=== PATIENT | male | born 1995 | race Hispanic/Latino ===

== ENCOUNTER 2024-11-22 21:59 | Emergency (ER) | payer BC ==
[~2024-11-22] VITALS: Ht 177.8 cm; Wt 185.1 kg
[~2024-11-22 21:59] MED LIST: CETI10TA87 PO; FLUT15.845 NASAL
--- NOTE | 2024-11-22 23:55 | NUR ---
ASSUMED PT CARE
[2024-11-23] MEDS: ketOROlac 60 MG VIAL (30MG/ML) IM ONE (00:20)
[2024-11-23 00:39] LABS: BASOPHILS # (AUTO) 0.04 K/uL (0.00-0.20); BASOPHILS % (AUTO) 0.3 % (0.0-5.0); EOSINOPHILS # (AUTO) 0.26 K/uL (0.00-0.70); EOSINOPHILS % (AUTO) 2.1 % (0.0-8.0); HEMATOCRIT 40.3 % (42-54); IMMATURE GRANULOCYTE ABSOLUTE 0.06 K/uL (0-1); LYMPHOCYTES # (AUTO) 2.2 K/uL (1.0-4.8); MEAN CORPUSCULAR VOLUME 87.8 fL (79-99); MONOCYTES # (AUTO) 0.8 K/uL (0.1-1.0); MONOCYTES % (AUTO) 6.5 % (3.0-13.0); NEUTROPHILS # (AUTO) 8.9 K/uL (1.8-7.7); NEUTROPHILS % (AUTO) 72.6 % (40.0-77.0); PLATELET COUNT (AUTO) 194 K/uL (130-400); RED BLOOD CELL COUNT(AUTO) 4.59 MIL/uL (4.50-6.20); RED CELL DISTRIBUTION WIDTH 12.5 % (11.0-15.5); WHITE BLOOD COUNT (AUTO) 12.3 K/uL (4.8-10.8)
[2024-11-23 00:49] LABS: CREATININE 0.8 mg/dL (0.5-1.3); POTASSIUM 3.7 mmol/L (3.5-5.1)
--- NOTE | 2024-11-23 01:30 | HMCIMG ---
CT ABDOMEN/PELVIS W/O CONTRAST HISTORY: Rectal pain COMPARISON: None TECHNIQUE: Multiple sequential axial images of the abdomen and pelvis were obtained from the dome of the diaphragm through symphysis pubis. Patient was not given contrast through intravenous route. Oral contrast was not given. FINDINGS: No pleural effusion is seen bilaterally. There is no evidence of parenchymal disease or pulmonary nodule of the visualized lower lungs. Degenerative changes of the thoracolumbar spine are present. The heart is not enlarged. Liver measured 23 cm. Fatty changes of the liver are noted. Gallbladder is contracted. Spleen measures 15 cm. A small hiatal hernia is seen. The liver, spleen, adrenal glands and pancreas are unremarkable. There is no evidence of hydronephrosis bilaterally. No evidence of renal stone is seen. Fecal material is seen in the colon. There are normal size retroperitoneal and mesenteric lymph nodes. No ascites is seen. No CT evidence of acute appendicitis is seen. Clinical correlation is recommended. Pelvic sidewalls are symmetric bilaterally. Bladder is moderately distended. IMPRESSION: 1. No acute findings. CT was performed with one or more following dose reduction techniques: automated exposure control, adjustment of the mA and kv according to patient's size, or use of a iterative reconstruction technique.
[2024-11-23 01:53] LABS: APPEARANCE,URINE TURBID (CLEAR); BILIRUBIN,URINE NEGATIVE (NEGATIVE); COLOR,URINE LIGHT-ORANGE (YELLOW); GLUCOSE, URINE (UA) NEGATIVE (NEGATIVE); KETONES,URINE NEGATIVE (NEGATIVE); LEUKOCYTE ESTERASE ,URINE NEGATIVE Leu/uL (NEGATIVE); NITRATE,URINE NEGATIVE (NEGATIVE); OCCULT BLOOD,URINE NEGATIVE (NEGATIVE); PROTEIN,URINE 30 mg/dL (NEGATIVE)
[2024-11-23 01:54] LABS: ADD UA MICROSCOPIC YES
[2024-11-23 02:01] LABS: AMPHET/METH SCREEN,URINE NEGATIVE (NEGATIVE); BARBITURATE SCREEN, URINE NEGATIVE (NEGATIVE); BENZODIAZEPINES SCREEN,URINE NEGATIVE (NEGATIVE); CANNABINOID SCREEN,URINE NEGATIVE (NEGATIVE); COCAINE SCREEN,URINE NEGATIVE (NEGATIVE); OPIATE SCREEN,URINE NEGATIVE (NEGATIVE); PHENCYCLIDINE SCREEN,URINE NEGATIVE (NEGATIVE)
--- NOTE | 2024-11-23 02:05 | ERN ---
ED Note History of Present Illness Stated Complaint: HEMMORHOID,FISTULA Chief Complaint: Other Problems Time Seen by MD: 22:15 Time Seen by Midlevel: 22:15 Dictation: Patient is a 29-year-old male with history of gastritis, seasonal allergies who presents to the emergency department with complaints of rectal pain onset a week ago. Patient reports he has pain with movement. Denies any rectal bleeding, nausea vomiting or diarrhea, generalized abdominal pain, denies any constipation. Reports last bowel movement today Allergies: Coded Allergies: No Known Drug Allergies (Unverified Allergy, Unknown, 01/08/17) Home Meds Reported Medications Cetirizine HCl (Cetirizine HCl) 10 Mg Tab.chew, 10 MG PO DAILY, TAB.CHEW 01/08/17 Fluticasone Propionate (Fluticasone Propionate) 15.8 Ml [place].susp, 50 MCG NASAL DAILY 01/08/17 Past Medical History Past Medical History: Other Additional Past Medical Hx: HX OF GASTRITIS, SEASONAL ALLERGIES Surgical History: Tonsillectomy RN Note Reviewed/Agreed w/PFSH: Yes Review of System Dictation Constitutional: Negative for fever,chills, and weight loss Eyes: Negative for injury, pain,redness, and discharge ENT: Negative for injury,pain or swelling Cardiovascular: Negative for chest pain, palpitations, and edema Respiratory: Negative for shortness of breath, cough, and wheezing, Abdomen/GI: Negative for abdominal pain, nausea, vomiting, diarrhea, and constipation Back: Negative for injury and pain : Negative for injury, bleeding and discharge positive for rectal pain MS/Extremity: Negative for injury and deformity Skin: Negative for rash, and discoloration Neuro: Negative for headache, weakness, numbness, tingling, and seizure Psych: Negative for suicide ideation, homicidal ideation, and hallucinations Initial Vital Sign VS Vital Signs Date Time Temp Pulse Resp B/P (MAP) Pulse Ox O2 Delivery O2 Flow Rate FiO2 11/22/24 22:30 99.1 84 20 185/82 95 Room Air 11/22/24 23:55 0 21 Physical Exam Dictation Vital Signs reviewed General Appearance: Alert, oriented x 3, no acute distress, well developed, nourished. Head and Face: non-traumatic. Eyes: PERRL, pink conjunctivas, eyelid no trauma, anterior chamber with arcus senilis. Ears: Pinnas intact and no signs of trauma or erythema ear canals clear and no discharge TM no erythema Nose: No discharge, no bleeding. Oropharynx: Mouth normal, tongue pink. pharynx clear,no erythema, tonsils no exudates, no abscesses noted, mucous membrane moist Neck: Supple, non-tender, no thyromegaly, no masses, no JVD, no bruits Breast:Deferred Chest:No tenderness, no crepitus, no paradoxical movement, no retractions Lungs:Clear, well-ventilated, symmetric, no rales, no wheezing, no rhonchi, no stridor, good breath sounds bilaterally Heart: Regular rate, regular rhythm, no murmur, no gallops Vascular: no peripheral edema, Abdomen: Soft, positive bowel sounds, nondistended, no guarding, nontender, no rebound, no masses no hepatomegaly, no splenomegaly, no Church's sign, no hernias. Rectal: Deferred Genital: Deferred Neurological: Normal speech, motor function intact, sensory function intact Musculoskeletal: Neck nontender, full range of motion, back nontender, full range of motion, Extremities: nontender, full range of motion Skin: Color pink, dry, no turgor, no rash, no lacerations, no abrasions, no contusions. Lymphatic: Deferred Results (Laboratory/Radiology) Laboratory/Radiology Laboratory Tests Test 11/23/24 00:13 11/23/24 01:39 White Blood Count 12.3 K/uL (4.8-10.8) H Red Blood Count 4.59 MIL/uL (4.50-6.20) Hemoglobin 13.3 g/dL (14.0-18.0) L Hematocrit 40.3 % (42-54) L Mean Corpuscular Volume 87.8 fL (79-99) Mean Corpuscular Hemoglobin 29.0 pg (27.0-33.0) Mean Corpuscular Hemoglobin Concent 33.0 g/dL (32.0-36.0) Red Cell Distribution Width 12.5 % (11.0-15.5) Platelet Count 194 K/uL (130-400) Mean Platelet Volume 10.2 fL (7.5-10.5) Immature Granulocyte % (Auto) 0.5 % (0-1) Neutrophils (%) (Auto) 72.6 % (40.0-77.0) Lymphocytes (%) (Auto) 18.0 % (21.0-51.0) L Monocytes (%) (Auto) 6.5 % (3.0-13.0) Eosinophils (%) (Auto) 2.1 % (0.0-8.0) Basophils (%) (Auto) 0.3 % (0.0-5.0) Neutrophils # (Auto) 8.9 K/uL (1.8-7.7) H Lymphocytes # (Auto) 2.2 K/uL (1.0-4.8) Monocytes # (Auto) 0.8 K/uL (0.1-1.0) Eosinophils # (Auto) 0.26 K/uL (0.00-0.70) Basophils # (Auto) 0.04 K/uL (0.00-0.20) Absolute Immature Granulocyte (auto 0.06 K/uL (0-1) Nucleated Red Blood Cells 0.0 % (0.0-0.19) Sodium Level 137 mmol/L (136-145) Potassium Level 3.7 mmol/L (3.5-5.1) Chloride Level 100 mmol/L (101-111) L Carbon Dioxide Level 35 mmol/L (21-32) H Blood Urea Nitrogen 10 mg/dL (7-18) Creatinine 0.8 mg/dL (0.5-1.3) Glomerular Filtration Rate Calc 124 mL/min (>90) Random Glucose 117 mg/dL (70-105) H Total Calcium 9.2 mg/dL (8.5-10.1) Urine Color LIGHT-ORANGE (YELLOW) Urine Appearance TURBID (CLEAR) Urine pH 7.0 (5.0-8.0) Urine Specific [place] 1.028 (1.001-1.031) Urine Protein 30 mg/dL (NEGATIVE) H Urine Glucose (UA) NEGATIVE mg/dL (NEGATIVE) Urine Ketones NEGATIVE mg/dL (NEGATIVE) Urine Occult Blood NEGATIVE (NEGATIVE) Urine Nitrate NEGATIVE (NEGATIVE) Urine Bilirubin NEGATIVE mg/dL (NEGATIVE) Urine Urobilinogen 2.0 mg/dL (0.2-1.0) H Urine Leukocyte Esterase NEGATIVE [place]/uL Urine RBC 2-5 /HPF (0-1) H Urine WBC 2-5 /HPF (0-1) H Urine Amorphous Crystals (Auto) RARE /LPF (None Seen) Urine Bacteria None /HPF (None Seen) Urine Opiates Screen NEGATIVE (NEGATIVE) Urine Barbiturates Screen NEGATIVE (NEGATIVE) Urine Phencyclidine Screen NEGATIVE (NEGATIVE) Urine Amphetamines Screen NEGATIVE (NEGATIVE) Urine Benzodiazepines Screen NEGATIVE (NEGATIVE) Urine Cocaine Screen NEGATIVE (NEGATIVE) Urine Marijuana (THC) Screen NEGATIVE (NEGATIVE) REASON: rectal pain, ro constipation ORDERING PHYSICIAN: LAWRENCE RICK [employer]ESSION[employer] PROCEDURE: ABD PEL WO - CT ABDOMEN/PELVIS W/O CONTRAST CT ABDOMEN/PELVIS W/O CONTRAST HISTORY: Rectal pain COMPARISON: None TECHNIQUE: Multiple sequential axial images of the abdomen and pelvis were obtained from the dome of the diaphragm through symphysis pubis. Patient was not given contrast through intravenous route. Oral contrast was not given. FINDINGS: No pleural effusion is seen bilaterally. There is no evidence of parenchymal disease or pulmonary nodule of the visualized lower lungs. Degenerative changes of the thoracolumbar spine are present. The heart is not enlarged. Liver measured 23 cm. Fatty changes of the liver are noted. Gallbladder is contracted. Spleen measures 15 cm. A small hiatal hernia is seen. The liver, spleen, adrenal glands and pancreas are unremarkable. There is no evidence of hydronephrosis bilaterally. No evidence of renal stone is seen. Fecal material is seen in the colon. There are normal size retroperitoneal and mesenteric lymph nodes. No ascites is seen. No CT evidence of acute appendicitis is seen. Clinical correlation is recommended. Pelvic sidewalls are symmetric bilaterally. Bladder is moderately distended. IMPRESSION: 1. No acute findings. CT was performed with one or more following dose reduction techniques: automated exposure control, adjustment of the mA and kv according to patient's size, or use of a iterative reconstruction technique. Labs Reviewed?: Yes ED Course ED Course Orders Procedure Category Date Status Time Cbc With Differential LAB 11/23/24 Complete 00:09 Basic Metabolic Panel LAB 11/23/24 Complete 00:09 Urinalysis Profile LAB 11/23/24 Complete 00:09 Ketorolac 60mg/2ml PHA 11/23/24 Complete (Toradol 60mg/2ml) 00:30 Drug Screen Urine LAB 11/23/24 Complete 00:55 Ct Abdomen/Pelvis W/O CT 11/23/24 Resulted Contrast 01:00 Current Medications Medications (Trade) Dose Ordered Sig/Janes Route PRN Reason Start Time Stop Time Status Last Admin Dose Admin Ketorolac Tromethamine (toRADol 60MG/ 2ML) 60 mg ONCE ONCE IM 11/23/24 00:30 11/23/24 00:31 DC 11/23/24 00:20 Vital Signs Date Time Temp Pulse Resp B/P (MAP) Pulse Ox O2 Delivery O2 Flow Rate FiO2 11/22/24 23:55 98.4 88 18 122/65 99 Room Air* 0 21 11/22/24 22:30 99.1 84 20 185/82 95 Room Air Medical Decision Making MDM Patient is a 29-year-old male with history of gastritis, seasonal allergies who presents to the emergency department with complaints of rectal pain onset a week ago. Patient reports he has pain with movement. Denies any rectal bleeding, nausea vomiting or diarrhea, generalized abdominal pain, denies any constipation. Reports last bowel movement today CBC showed mild leukocytosis, mild normocytic anemia, chemistry showed mild hypochloremia, no electrolyte imbalance, urinalysis unremarkable. Unable to perform abdominal x-ray due to patient's size. CT abdomen showed no acute pathology. On physical exam patient did not have any wounds or hemorrhoids to rectum. Examination was chaperoned by nurse. Patient in no acute distress, nontoxic appearance will be discharged to follow up with primary doctor. Differential diagnosis: Constipation, fecal impaction, hemorrhoids, abscess Need for hospitalization: Patient does not meet criteria for hospitalization. There are no social concerns with this patient. DX & DISP Disposition: Discharge Departure Impression: Primary Impression: Rectal pain Condition: Stable Scripts Ibuprofen (Ibuprofen) 600 Mg Tablet 600 MG PO Q6H PRN for PAIN, #10 TAB Prov: LAWRENCE RICK 11/23/24 Lactulose (Lactulose) 10 Gram/15 Ml Solution 30 ML PO DAILY for constipation, #900 ML 0 Refills Prov: LAWRENCE RICK 11/23/24 Additional Instructions: Please follow up with the primary doctor in 1-2 days. If symptoms worsen please return to ER. FOLLOW-UP WITH PRIMARY CARE PROVIDER IN 1 TO 2 DAYS. TAKE MEDICATIONS DIRECTED HERE IN THE EMERGENCY ROOM. OKAY TO CONTINUE HOME MEDICATIONS UNLESS OTHERWISE DISCUSSED DURING YOUR VISIT IN THE EMERGENCY ROOM TODAY. RETURN TO YOUR NEAREST EMERGENCY ROOM IF SYMPTOMS WORSEN OR IF THERE IS NO IMPROVEMENT. CALL 911 IF YOU NEED IMMEDIATE ASSISTANCE. TAKE TYLENOL OR MOTRIN [id number] NEEDED AND IF NO CONTRAINDICATIONS ARE PRESENT. INCREASE ORAL HYDRATION. A WOUND CULTURE OR URINE CULTURE WAS ORDERED HERE IN THE EMERGENCY ROOM DEPARTMENT PLEASE FOLLOW-UP WITH PRIMARY CARE PROVIDER AND ADVISE THEM TO GET REPEAT PORTS FROM OUR FACILITY. IF YOU HAD ANY MANISH WRAP/SPLINTS THAT WERE APPLIED HERE, PLEASE DO NOT REMOVE THEM UNTIL YOU SEE YOUR PRIMARY CARE OR SPECIALTY. Referrals: EDIL PAYNE (PCP) Time of Disposition: 02:08 I have reviewed the case, and I agree with, Diagnosis and Plan LAWRENCE RICK Nov 23, 2024 02:05
[2024-11-23] MEDS ORDERED: LACT-441 PO (02:20)
[2024-11-23] MEDS ORDERED: IBUP-2070 PO (02:20)
[2024-11-23 02:31] VITALS: BP 128/62; PULSE 0; RESP 18; TEMP 98.4; O2SAT 95
== END 2024-11-23 02:32 | disposition home or self-care (01) ==
LOC: EDH 21:59
DX: K62.89 Other specified diseases of anus and rectum (principal); Z90.89 Acquired absence of other organs; Z79.899 Other long term (current) drug therapy
CPT/HCPCS: 99284; 80048; 80305; 85025; 36415; 81001; 74176; 96374; J1885

== ENCOUNTER 2024-11-24 06:14 | Inpatient (IN) | payer BC ==
[~2024-11-24] VITALS: Ht 177.8 cm; Wt 184.6 kg
[~2024-11-24 06:14] MED LIST changes: +IBUP-2070 PO; +LACT-441 PO
[2024-11-24 06:59] LABS: BASOPHILS # (AUTO) 0.03 K/uL (0.00-0.20); BASOPHILS % (AUTO) 0.3 % (0.0-5.0); EOSINOPHILS # (AUTO) 0.22 K/uL (0.00-0.70); EOSINOPHILS % (AUTO) 1.8 % (0.0-8.0); HEMATOCRIT 40.9 % (42-54); IMMATURE GRANULOCYTE ABSOLUTE 0.06 K/uL (0-1); LYMPHOCYTES # (AUTO) 1.4 K/uL (1.0-4.8); LYMPHOCYTES % (AUTO) 11.9 % (21.0-51.0); MEAN CORPUSCULAR HEMOGLOBIN 29.1 pg (27.0-33.0); MEAN CORPUSCULAR VOLUME 88.1 fL (79-99); MONOCYTES # (AUTO) 0.8 K/uL (0.1-1.0); MONOCYTES % (AUTO) 6.4 % (3.0-13.0); NEUTROPHILS # (AUTO) 9.5 K/uL (1.8-7.7); NEUTROPHILS % (AUTO) 79.1 % (40.0-77.0); PLATELET COUNT (AUTO) 185 K/uL (130-400); RED BLOOD CELL COUNT(AUTO) 4.64 MIL/uL (4.50-6.20); RED CELL DISTRIBUTION WIDTH 12.5 % (11.0-15.5)
[2024-11-24 07:08] LABS: CREATININE 0.8 mg/dL (0.5-1.3)
[2024-11-24] MEDS: ketOROlac 15MG/ML VIAL (15MG/ML) IM ONE (08:01)
[2024-11-24] MEDS: morPHINE 4 MG SYG IM ONE (08:02)
--- NOTE | 2024-11-24 08:24 | NUR ---
ENEMA DONE NOW, PT IN RESTROOM AT THIS TIME
[2024-11-24] MEDS: PEG 3350/NA SULF,BICARB,CL/KCL 4000 ML SOLN PO ONE (09:04)
--- NOTE | 2024-11-24 09:41 | ERN ---
General Chief Complaint: Other Problems Stated Complaint: C/O RECTAL PAIN Time Seen by MD: 07:06 Source: patient History of Present Illness Initial Comments Is a 29-year-old gentleman coming in to be evaluated for rectal pain. Per patient he was seen here couple of days ago and was told everything was okay but he keeps on having abdominal pain more rectal pain that abdominal pain. And states he was here for further evaluation. Patient was told he was constipated but states he can be constipated because he goes watery. Allergies: Coded Allergies: No Known Drug Allergies (Unverified Allergy, Unknown, 01/08/17) Home Meds Active Scripts Ibuprofen (Ibuprofen) 600 Mg Tablet, 600 MG PO Q6H PRN for PAIN, #10 TAB Prov:LAWRENCE RICK [facility] 11/23/24 Lactulose (Lactulose) 10 Gram/15 Ml Solution, 30 ML PO DAILY for constipation, #900 ML 0 Refills Prov:LAWRENCE RICK [facility] 11/23/24 Reported Medications Cetirizine HCl (Cetirizine HCl) 10 Mg Tab.chew, 10 MG PO DAILY, TAB.CHEW 01/08/17 Fluticasone Propionate (Fluticasone Propionate) 15.8 Ml [place].susp, 50 MCG NASAL DAILY 01/08/17 Past Medical History Past Medical History: No Pertinent History Medical History Other: HX OF GASTRITIS, SEASONAL ALLERGIES Past Surgical History: Tonsillectomy, Other ROS Dictation CONSTITUTIONAL: No chills, no fever, no weakness, no diaphoresis, no malaise. HEAD/FACE: No signs of trauma. EENT: No eye pain, no blurred vision, no tearing, no double vision, no ear pain, no ear discharge, no nose pain, no nasal congestion, no throat pain, no throat swelling, no mouth pain. RESPIRATORY: No cough, no orthopnea, no SOB, no stridor, no wheezing. CARDIOVASCULAR: No chest pain, no edema, no palpitations, no syncope. GASTROINTESTINAL/ABDOMINAL: No abdominal pain, no constipation, no diarrhea, no nausea, no vomiting. GENITOURINARY: No abnormal discharge, no dysuria, no frequent urination, no hematuria. No complaints of pain in the genitals. MUSCULOSKELETAL: No back pain, no gout, no joint pain, no joint swelling, no muscle pain, no muscle stiffness, no neck pain. INTEGUMENTARY: No change in color, no change in hair/nails, no dryness, no lesion, no lumps, no rash. NEUROLOGICAL/PSYCH: No anxiety, not depressed, no emotional problem, no headache, no numbness, no pre-existing deficit, no history of seizures, no tremors, no weakness. HEMATOLOGIC/LYMPHATIC: Not anemic, no history of blood clots, no apparent bleeding, no bruising, glands not swollen. All Systems Negative, Except as Noted. Physical Exam Physical Exam Dictation VITAL SIGNS: Reviewed. GENERAL APPEARANCE: Alert, oriented x3, no acute distress, obese. HEAD AND FACE: Non-traumatic. EYES: PERRL, pink conjunctivas, eyelid no trauma, anterior chamber clear. EARS: Pinnas intact and no signs of trauma or erythema. Ear canals clear and no discharge. TMs no erythema. NOSE: No discharge, no bleeding. OROPHARYNX: Mouth normal, teeth no caries, tongue pink. Pharynx clear, no erythema. Tonsils no exudates, no abscesses noted. Mucous membrane moist. NECK: Supple, non-tender, no thyromegaly, no masses, no JVD, no bruits. BREAST: Deferred. CHEST: No tenderness, no crepitus, no paradoxical movement, no retractions. LUNGS: Clear, well-ventilated, symmetric, no rales, no wheezing, no rhonchi, no stridor, good breath sounds bilaterally. HEART: Regular rate, regular rhythm, no murmur, no gallops. VASCULAR: No peripheral edema. ABDOMEN: Soft, positive bowel sounds, nondistended, no guarding, nontender, no rebound, no masses no hepatomegaly, no splenomegaly, no Church's sign, no hernias. RECTAL: Deferred. GENITAL: Deferred. NEUROLOGICAL: Normal speech, gross motor function intact, gross sensory function intact. MUSCULOSKELETAL: Neck nontender, full range of motion, back nontender, full range of motion. EXTREMITIES: Nontender, full range of motion. SKIN: Color pink, dry, no turgor, no rash, no lacerations, no abrasions, no contusions. LYMPHATICS: Deferred. Results Laboratory and Microbiology Lab and Micro Result Laboratory Tests Test 11/24/24 06:43 White Blood Count 12.0 K/uL (4.8-10.8) H Red Blood Count 4.64 MIL/uL (4.50-6.20) Hemoglobin 13.5 g/dL (14.0-18.0) L Hematocrit 40.9 % (42-54) L Mean Corpuscular Volume 88.1 fL (79-99) Mean Corpuscular Hemoglobin 29.1 pg (27.0-33.0) Mean Corpuscular Hemoglobin Concent 33.0 g/dL (32.0-36.0) Red Cell Distribution Width 12.5 % (11.0-15.5) Platelet Count 185 K/uL (130-400) Mean Platelet Volume 10.0 fL (7.5-10.5) Immature Granulocyte % (Auto) 0.5 % (0-1) Neutrophils (%) (Auto) 79.1 % (40.0-77.0) H Lymphocytes (%) (Auto) 11.9 % (21.0-51.0) L Monocytes (%) (Auto) 6.4 % (3.0-13.0) Eosinophils (%) (Auto) 1.8 % (0.0-8.0) Basophils (%) (Auto) 0.3 % (0.0-5.0) Neutrophils # (Auto) 9.5 K/uL (1.8-7.7) H Lymphocytes # (Auto) 1.4 K/uL (1.0-4.8) Monocytes # (Auto) 0.8 K/uL (0.1-1.0) Eosinophils # (Auto) 0.22 K/uL (0.00-0.70) Basophils # (Auto) 0.03 K/uL (0.00-0.20) Absolute Immature Granulocyte (auto 0.06 K/uL (0-1) Nucleated Red Blood Cells 0.0 % (0.0-0.19) Sodium Level 136 mmol/L (136-145) Potassium Level 4.0 mmol/L (3.5-5.1) Chloride Level 101 mmol/L (101-111) Carbon Dioxide Level 27 mmol/L (21-32) Blood Urea Nitrogen 14 mg/dL (7-18) Creatinine 0.8 mg/dL (0.5-1.3) Glomerular Filtration Rate Calc 124 mL/min (>90) Random Glucose 124 mg/dL (70-105) H Total Calcium 9.1 mg/dL (8.5-10.1) Labs Reviewed?: Yes EKG/XRAY/US/CT/MRI CT Scan Comment [facility] [address] [place] [address] IMAGING REPORT Signed PATIENT: INGRID CONTRERAS MR#: [id number] : 1995 SEX: M AGE: 29 LOCATION: [facility] ORDER 04 STATUS: REG ER REPORT#: [id number] SERVICE 04 REASON: rectal pain ORDERING PHYSICIAN: PARRIS PEREZ MD PROCEDURE: ABD PEL W - CT ABDOMEN/PELVIS W/CONTRAST CT ABDOMEN WITH CONTRAST. CT PELVIS WITH CONTRAST INDICATION: Rectal pain for 4 days TECHNIQUE: Routine transaxial images using 5 mm slice thickness were obtained after the intravenous infusion of 100 mL of Omnipaque 350 without adverse effects. Oral contrast was not administered. Rectal contrast was not administered. Coronal and sagittal reformatted images acquired for interpretation. CT was performed with one or more of the following dose reduction techniques: Automated exposure control, adjustment of the mA and/or kV according to patient size, or use of iterative reconstruction technique. COMPARISON: 11/23/2024 FINDINGS: Examination is slightly limited secondary to patient body habitus, and gantry artifact noted. ABDOMEN: Heart size is normal. Visible lung bases are clear. The liver is normal in size and smooth in contour without lesions or biliary duct dilation. Diffuse low attenuation of the liver parenchyma suggests fatty change. The spleen is normal in size without lesions. The gallbladder appears normal. The pancreas appears normal without pancreatic duct dilation. The adrenal glands appear normal. Subcentimeter simple cyst at the mid to lower portion of the right kidney. Left kidney appears normal. Cortical nephrograms are symmetric and normal in appearance bilaterally. No evidence for intra-abdominal free air or organized fluid collection. No retrocrural, intraabdominal, or retroperitoneal lymphadenopathy identified. No aortic aneurysmal dilation or dissection identified. PELVIS: No evidence for free air or organized pelvic fluid collection. No significant pelvic adenopathy detected. Visualized small and large bowel loops appear unremarkable. Terminal ileum appears normal. The appendix appears normal. No evidence for any rectal or perirectal abnormality. Irregular 5.1 cm soft tissue mass suspected near the anus. The urinary bladder appears unremarkable. Visible osseous structures are intact. IMPRESSION: Limitations as reported. 1. Irregular 5.1 cm enhancing soft tissue mass near the anus without any rectal or perirectal abnormality. 2. Hepatic steatosis. DICTATED BY: TANNA MORRIS MD DATE: 11/24/24 1538 ELECTRONICALLY SIGNED BY: TANNA MORRIS MD DATE: 11/24/24 1542 [facility] MDM: Differential diagnosis: Rectal mass, rectal pain Rationale: Tests considered and ordered secondary to shared decision making include: Previous outside records reviewed: Old ER visits. Risk of complication and/or morbidity or mortality of patient management: None Medications-Per medication reconciliation Need for hospitalization: Patient does not meet criteria for hospitalization. Need for emergency major/minor surgery: No There are no social concerns with this patient. Prescription drug management Prescriptions will include symptomatic care Patient's prior external medical records from other ER visits were reviewed by me as indicated. Prior testing and results from previous visits were reviewed. Prior tests were taken into account with medical decision making and resource utilization, independent historian/historians were used to obtain complete medical history. I independently interpreted the test that were performed, results were reviewed by me and considered findings on radiology if ordered. Medical management and examination interpretation discussions were had by me with other qualified healthcare professionals as indicated for the patient's care. Patient is a 29-year-old gentleman coming in to be evaluated for rectal pain. This was a 2nd visit and CT needs to be performed with contrast which disclose a rectal mass. Report given to Dr. Robb surgeon on-call. Per his request patient was okay to be admitted under the care of hospitalist group for ongoing evaluation. ED Course Orders Procedure Category Date Status Time Cbc With Differential LAB 11/24/24 Complete 06:24 Basic Metabolic Panel LAB 11/24/24 Complete 06:24 Ketorolac PHA 11/24/24 Complete Tromethamine 15mg/Ml 06:30 Morphine 4mg Syg PHA 11/24/24 Complete (Morphine 4mg Syg) 06:30 Enema Instructions CPOE 11/24/24 Transmitted 07:34 Peg 3350/Na PHA 11/24/24 Complete Sulf,Bicarb,Cl/Kcl 09:00 *Nursing CPOE 11/24/24 Transmitted Communication: 13:45 Ct Abdomen/Pelvis CT 11/24/24 Resulted W/Contrast 14:05 Iohexol (Omnipaque) PHA 11/24/24 Complete 14:35 Zosyn 3.375gm+Ns 50ml PHA 11/24/24 Complete (Zosyn 3.375gm+Ns 16:30 Current Medications Medications (Trade) Dose Ordered Sig/Janes Route PRN Reason Start Time Stop Time Status Last Admin Dose Admin Iohexol (Omnipaque) 35,000 mg STK-MED ONCE IV 11/24/24 14:35 11/24/24 14:35 DC Ketorolac Tromethamine (toRADol) 15 mg ONCE ONCE IM 11/24/24 06:30 11/24/24 06:31 DC 11/24/24 08:01 Morphine Sulfate (morPHINE 4MG SYG) 4 mg ONCE ONCE IM 11/24/24 06:30 11/24/24 06:32 DC 11/24/24 08:02 Piperacillin Sod/ Tazobactam Sod (Zosyn 3.375gm+NS 50ml) 3.375 gm ONCE ONCE IV 11/24/24 16:30 11/24/24 16:31 DC 11/24/24 16:28 Polyethylene Glycol/ Electrolytes (Golytely/Colyte Soln) 4,000 ml ONCE ONCE PO 11/24/24 09:00 11/24/24 09:01 DC 11/24/24 09:04 Vital Signs Date Time Temp Pulse Resp B/P (MAP) Pulse Ox O2 Delivery O2 Flow Rate FiO2 11/24/24 15:16 74 18 114/60 96 Room Air* 0 11/24/24 11:51 71 18 141/81 96 Room Air* 0 21 11/24/24 09:58 75 18 127/67 94 Room Air* 0 21 11/24/24 07:34 99.5 91 18 117/59 98 Room Air* 0 11/24/24 06:19 99.5 91 20 145/84 94 Room Air DX & DISP Disposition: Inpatient Decision to Admit Time: 16:54 Departure Impression: Primary Impression: Mass in rectum Condition: Stable Referrals: EDIL PAYNE (PCP) PARRIS PEREZ MD Nov 24, 2024 09:41
--- NOTE | 2024-11-24 14:09 | NUR ---
NO SOLID FECAL MATTER FOUND DURING DIGITAL DISIMPACTION BY DR. PEREZ/NURSE
[2024-11-24] MEDS ORDERED: IOHEXOL 350 MG/ML 100ML INFUS..BTL IV ONE (14:35)
--- NOTE | 2024-11-24 15:42 | HMCIMG ---
CT ABDOMEN WITH CONTRAST. CT PELVIS WITH CONTRAST INDICATION: Rectal pain for 4 days TECHNIQUE: Routine transaxial images using 5 mm slice thickness were obtained after the intravenous infusion of 100 mL of Omnipaque 350 without adverse effects. Oral contrast was not administered. Rectal contrast was not administered. Coronal and sagittal reformatted images acquired for interpretation. CT was performed with one or more of the following dose reduction techniques: Automated exposure control, adjustment of the mA and/or kV according to patient size, or use of iterative reconstruction technique. COMPARISON: 11/23/2024 FINDINGS: Examination is slightly limited secondary to patient body habitus, and gantry artifact noted. ABDOMEN: Heart size is normal. Visible lung bases are clear. The liver is normal in size and smooth in contour without lesions or biliary duct dilation. Diffuse low attenuation of the liver parenchyma suggests fatty change. The spleen is normal in size without lesions. The gallbladder appears normal. The pancreas appears normal without pancreatic duct dilation. The adrenal glands appear normal. Subcentimeter simple cyst at the mid to lower portion of the right kidney. Left kidney appears normal. Cortical nephrograms are symmetric and normal in appearance bilaterally. No evidence for intra-abdominal free air or organized fluid collection. No retrocrural, intraabdominal, or retroperitoneal lymphadenopathy identified. No aortic aneurysmal dilation or dissection identified. PELVIS: No evidence for free air or organized pelvic fluid collection. No significant pelvic adenopathy detected. Visualized small and large bowel loops appear unremarkable. Terminal ileum appears normal. The appendix appears normal. No evidence for any rectal or perirectal abnormality. Irregular 5.1 cm soft tissue mass suspected near the anus. The urinary bladder appears unremarkable. Visible osseous structures are intact. IMPRESSION: Limitations as reported. 1. Irregular 5.1 cm enhancing soft tissue mass near the anus without any rectal or perirectal abnormality. 2. Hepatic steatosis.
[2024-11-24] MEDS: ZOSYN 3.375GM +NS 50ML IV ONE (16:28)
[2024-11-24] MEDS ORDERED: ondanSETRON 4MG INJ IVP PRN (18:00)
--- NOTE | 2024-11-24 18:16 | NUR ---
PER DR. LOYD, SPOKE TO CONSULTS DR. DIALLO, PULMONOLGY, DR. PEREZ SPOKE TO SURGICAL CONSULT
--- NOTE | 2024-11-24 18:17 | HMCIMG ---
PORTABLE CHEST RADIOGRAPH INDICATION: cough and bronchitis COMPARISON: 03/26/12 FINDINGS: Heart size is normal. The pulmonary vascularity and yannick appear normal. No abnormal pulmonary parenchymal opacity or consolidation identified. No significant pleural effusion noted. No pneumothorax detected. IMPRESSION: No radiographic evidence for any acute cardiopulmonary process.
[2024-11-24] MEDS: LACTATED RINGERS 1000ML 1,000 ML IV SCH (18:20)
[2024-11-24] MEDS: morPHINE 2 MG SYG IVP PRN (18:21)
[2024-11-24] MEDS: PANTOPrazole 40 MG/VIAL IVP SCH (18:21)
[2024-11-24 18:24] LABS: HIV 1&2 ANTIBODY Non-Reactive (Negative)
[2024-11-24 18:25] LABS: HIV-1 p24 Antigen Non-Reactive (Negative)
[2024-11-24 18:38] LABS: INR 1.08 (0.85-1.15); PROTHROMBIN TIME 11.4 SEC (9.6-11.6)
[2024-11-24 18:39] LABS: PARTIAL THROMBOPLASTIN TIME 30.2 SEC (26.3-35.5)
[2024-11-24 18:40] LABS: ALBUMIN 3.7 g/dL (3.5-5.0); BILIRUBIN,DIRECT 0.2 mg/dL (0.0-0.3); BILIRUBIN,TOTAL 0.8 mg/dL (0.2-1.0); TOTAL PROTEIN, SERUM 7.3 g/dL (6.0-8.3)
[2024-11-24 19:14] LABS: SARS-CoV-2, RNA, NAAT NEGATIVE SARS CoV-2 (NEGATIVE)
[2024-11-24 19:18] LABS: INFLUENZA TYPE A Negative For Type A (NEGATIVE); INFLUENZA TYPE B Negative For Type B (NEGATIVE)
[2024-11-24] MEDS: BUDESONIDE 0.5 MG/2 ML INH IH SCH (19:57)
[2024-11-24 19:58] VITALS: PULSE 107; RESP 20; O2SAT 96
[2024-11-24] MEDS: IpraTROPium/alBUTERol SULFATE 3 ML SOLUTION IH PRN (19:58)
--- NOTE | 2024-11-24 20:09 | CONS ---
[facility] CONSULTATION NOTE Date Patient Seen: Nov 24, 2024 Time of Visit: 19:59 Supervising Physician:DR Gareth Neff Reason for Consultation: DUSTIN Consulting Physician: Dr Murillo Outpatient Specialists: [ ] Inpatient Consults: [ ] PROBLEM LIST: Obstructive sleep apnea, POA Obesity hypoventilation syndrome, POA Morbid obesity, BMI of 58.4 Rectal mass, POA Hepatic steatosis, POA Leukocytosis, POA History of chronic bronchitis, asthma PLAN: Admit per primary Antibiotic management per primary CPAP at night DuoNeb q.6 as needed for shortness of breaths Keep head of bed above 30 Sleep study-outpatient Incentive spirometry Keep O2 saturation above 90% Rest of plan care of primary HPI: 29-year-old male with past medical history of chronic bronchitis, asthma, deviated septum, morbid obesity, possible DUSTIN who presented to ED with complaint of rectal pain that started since Friday and found to have rectal mass. He was seen and examined in ED with present at bedside. According to him he has been having issues with rectal pain mostly during bowel movement. CT scan of the abdomen was done and showed regular 5.7 cm enhancing soft tissue mass near the anus without any rectal or perirectal abnormality. Chest x-ray showed no acute intrapulmonary process. [place] [address], CMP is unremarkable for any acute electrolyte or kidney dysfunction. [facility] pulmonology was consulted for evaluation of possible DUSTIN given patient's body habitus. Patient denies any use of oxygen at home, or CPAP, and denies any sleep study. Patient's history is notable for childhood asthma and chronic bronchitis. Patient denies any smoking, he drinks occasionally, and does not use illicit drug. 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 Patient denies any chronic cough, phlegm, chest pain, but says that when he sleeps he has periods of apnea and loud snoring. At present patient is currently hemodynamically stable, on room air with appropriate oxygen saturation, afebrile, and denies any specific concern at this time. PAST MEDICAL HX: see above PAST SURGICAL HX: noncontributory SOCIAL HISTORY: No tobacco, ETOH, or illicit drug use Coded Allergies: No Known Drug Allergies (Unverified Allergy, Unknown, 01/08/17) REVIEW OF SYSTEMS: 12 point ROS reviewed with patient. Pertinent positives mentioned above. Otherwise negative. PHYSICAL EXAM: GENERAL: alert, weak, awake oriented x 3 HEENT: EOMI, Sclera non icteric, moist mucosa NECK: Supple, no JVD, trachea midline LUNGS: Clear breath sounds bilaterally. No wheezes HEART: Regular rate and rhythm. Normal S1 and S2, without murmurs ABD: Large body habitus EXT: No clubbing cyanosis or edema NEURO: Alert and oriented to person, follows commands Vital Signs (last 8hr) Date Time Temp Pulse Resp B/P (MAP) Pulse Ox O2 Delivery O2 Flow Rate FiO2 11/24/24 15:16 74 18 114/60 96 Room Air* 0 21 LABS: Hematology Labs: Test 11/24/24 06:43 Range/Units White Blood Count 12.0 H 4.8-10.8 K/uL Red Blood Count 4.64 4.50-6.20 MIL/uL Hemoglobin 13.5 L 14.0-18.0 g/dL Hematocrit 40.9 L 42-54 % Mean Corpuscular Volume 88.1 79-99 fL Mean Corpuscular Hemoglobin 29.1 27.0-33.0 pg Mean Corpuscular Hemoglobin Concent 33.0 32.0-36.0 g/dL Red Cell Distribution Width 12.5 11.0-15.5 % Platelet Count 185 130-400 K/uL Mean Platelet Volume 10.0 7.5-10.5 fL Immature Granulocyte % (Auto) 0.5 0-1 % Neutrophils (%) (Auto) 79.1 H 40.0-77.0 % Lymphocytes (%) (Auto) 11.9 L 21.0-51.0 % Monocytes (%) (Auto) 6.4 3.0-13.0 % Eosinophils (%) (Auto) 1.8 0.0-8.0 % Basophils (%) (Auto) 0.3 0.0-5.0 % Neutrophils # (Auto) 9.5 H 1.8-7.7 K/uL Lymphocytes # (Auto) 1.4 1.0-4.8 K/uL Monocytes # (Auto) 0.8 0.1-1.0 K/uL Eosinophils # (Auto) 0.22 0.00-0.70 K/uL Basophils # (Auto) 0.03 0.00-0.20 K/uL Absolute Immature Granulocyte (auto 0.06 0-1 K/uL Nucleated Red Blood Cells 0.0 0.0-0.19 % Chemistry Labs: Test 11/24/24 18:21 11/24/24 06:43 Range/Units Total Bilirubin 0.8 0.2-1.0 mg/dL Direct Bilirubin 0.2 0.0-0.3 mg/dL Aspartate Amino Transf (AST/SGOT) 15 10-37 U/L Alanine Aminotransferase (ALT/SGPT) 38 12-78 U/L Alkaline Phosphatase 97 50-136 U/L Total Protein 7.3 6.0-8.3 g/dL Albumin 3.7 3.5-5.0 g/dL Sodium Level 136 136-145 mmol/L Potassium Level 4.0 3.5-5.1 mmol/L Chloride Level 101 101-111 mmol/L Carbon Dioxide Level 27 21-32 mmol/L Blood Urea Nitrogen 14 7-18 mg/dL Creatinine 0.8 0.5-1.3 mg/dL Glomerular Filtration Rate Calc 124 >90 mL/min Random Glucose 124 H 70-105 mg/dL Total Calcium 9.1 8.5-10.1 mg/dL Coagulation Labs: Test 11/24/24 18:21 Range/Units Prothrombin Time 11.4 9.6-11.6 SEC Prothromb Time International Ratio 1.08 0.85-1.15 Activated Partial Thromboplast Time 30.2 26.3-35.5 SEC DIAGNOSTICS / RADIOLOGY RESULTS: PORTABLE CHEST RADIOGRAPH INDICATION: cough and bronchitis COMPARISON: 03/26/12 FINDINGS: Heart size is normal. The pulmonary vascularity and yannick appear normal. No abnormal pulmonary parenchymal opacity or consolidation identified. No significant pleural effusion noted. No pneumothorax detected. IMPRESSION: No radiographic evidence for any acute cardiopulmonary process. CT ABDOMEN WITH CONTRAST. CT PELVIS WITH CONTRAST INDICATION: Rectal pain for 4 days TECHNIQUE: Routine transaxial images using 5 mm slice thickness were obtained after the intravenous infusion of 100 mL of Omnipaque 350 without adverse effects. Oral contrast was not administered. Rectal contrast was not administered. Coronal and sagittal reformatted images acquired for interpretation. CT was performed with one or more of the following dose reduction techniques: Automated exposure control, adjustment of the mA and/or kV according to patient size, or use of iterative reconstruction technique. COMPARISON: 11/23/2024 FINDINGS: Examination is slightly limited secondary to patient body habitus, and gantry artifact noted. ABDOMEN: Heart size is normal. Visible lung bases are clear. The liver is normal in size and smooth in contour without lesions or biliary duct dilation. Diffuse low attenuation of the liver parenchyma suggests fatty change. The spleen is normal in size without lesions. The gallbladder appears normal. The pancreas appears normal without pancreatic duct dilation. The adrenal glands appear normal. Subcentimeter simple cyst at the mid to lower portion of the right kidney. Left kidney appears normal. Cortical nephrograms are symmetric and normal in appearance bilaterally. No evidence for intra-abdominal free air or organized fluid collection. No retrocrural, intraabdominal, or retroperitoneal lymphadenopathy identified. No aortic aneurysmal dilation or dissection identified. PELVIS: No evidence for free air or organized pelvic fluid collection. No significant pelvic adenopathy detected. Visualized small and large bowel loops appear unremarkable. Terminal ileum appears normal. The appendix appears normal. No evidence for any rectal or perirectal abnormality. Irregular 5.1 cm soft tissue mass suspected near the anus. The urinary bladder appears unremarkable. Visible osseous structures are intact. IMPRESSION: Limitations as reported. 1. Irregular 5.1 cm enhancing soft tissue mass near the anus without any rectal or perirectal abnormality. 2. Hepatic steatosis. PLAN NEURO: Minimize central acting medications as possible. Maintain fall precautions, adequate lighting during the day PULMONARY: Supplemental 02 as needed. Maintain aspiration precautions at all times CARDIOVASCULAR: Follow hemodynamics. Vital signs per facility protocol GI & NUTRITION: Continue with nutritional support. Continue stool softeners and laxatives as needed. KIDNEYS & ELECTROLYTES: Strict monitoring of intake, output and overall fluid balance. Avoid nephrotoxic medications to the extent possible. Medications to be dosed according to renal function. Monitor electrolytes and replace as needed ENDOCRINE: Maintain blood glucose between 100-180 at all times. Hypoglycemia protocol in place INFECTIOUS DISEASE: Trend temperature, WBC and procalcitonin level Follow cultures, deescalate antibiotics as soon as possible. Panculture if new onset fever ONCOLOGY/HEMATOLOGY/COAGULATION: Monitor for s/s of bleeding Monitor hemoglobin, coagulation studies as needed SKIN: Pressure ulcer prevention per facility protocol Specialty mattress ORTHO/REHAB: Continue PT/OT Prophylaxis: Continue GI and DVT prophylaxis Code Status: Full Resuscitation Disposition: TBD Other: Total patient care time exceeds 35 minutes excluding all procedures. Supervising physician: FIONA Hylton [employer] OPERATOR Nov 24, 2024 20:09
--- NOTE | 2024-11-24 20:34 | HP ---
[facility] Date of Service: Nov 24, 2024 Time of Service: 20:26 HISTORY OF PRESENT ILLNESS: Date of service: 11/24/2024, patient was seen in ER room 14 This is a 29-year-old male with underlying history of morbid obesity, gastritis who presented to the ER for further evaluation of tenesmus, rectal pain. Symptoms have been ongoing since the past six days, patient had presented to the ER yesterday with similar complaints and had a CT abdomen done without contrast. Diagnosis of constipation was made and patient was given lactulose for further management. Patient continues to have significant pain especially when lying s upine or using the restroom. Denies any hematochezia. He has been having subjective malaise and chills at home. Patient does report having family history of anal fissures in his brothers. Patient denies any previous history of malignancy. He does have symptoms of sleep apnea and is supposed to have outpatient sleep study done. On presentation to the hospital, patient was noted to have T-max of 99.5 F, heart rate of 91, blood pressure of 145/84. Labs [place] [address], hemoglobin of 13.5, platelet count of 787252. BMP remarkable for sodium of 136, potassium 4.0, creatinine of 0.8 and normal liver enzymes. A CT abdomen pelvis with IV contrast was performed which showed findings of 5.1 cm soft tissue mass noted near the anus. Consultation has been requested with General surgery. We will have Medical Oncology see this patient as well. Patient will receive IV fluids and broad- spectrum antibiotics with IV Zosyn. Patient will be placed on bowel rest. We will have pulmonology see this patient given underlying untreated obstructive sleep apnea. Patient will be started on CPAP therapy while inpatient. REVIEW OF SYSTEMS CONSTITUTIONAL: Denies fevers, chills, or night sweats. No unintentional weight loss reported. NEUROLOGICAL: Denies headache, amaurosis fugax, motor weakness, sensory defic it, vertigo/spinning sensation, gait abnormalities, or tremors. ENT: No hearing loss, otalgia, otorrhea, rhinitis, rhinorrhea, hoarseness, or sore throat. CARDIOVASCULAR: Denies any exertional angina, dyspnea on exertion, orthopnea, paroxysmal nocturnal dyspnea, palpitations, life-threatening arrhythmias, claudication. PULMONARY: Denies any shortness of breath, cough, phlegm/sputum, hemoptysis, pleuritic chest pain. SLEEP: Denies morning headaches, daytime somnolence or napping. Denies difficulty falling asleep, staying asleep, waking from sleep. Denies knowledge of snoring. GASTROINTESTINAL: Tenesmus, rectal pain GENITOURINARY: Denies frequency, urgency, nocturia, hematuria or incontinence (Storage/Irritative symptoms.) Low urinary stream, straining to void, urinary intermittency or hesitancy, splitting of the voiding stream, terminal dribbling. ENDOCRINOLOGIC: Denies polyuria, polydipsia, polyphagia or heat/cold intolerances. HEMATOLOGIC: Denies thrombophilia/previous clots, or coagulopathy/bleeding disorders. ONCOLOGIC: Denies personal history of malignancy. DERMATOLOGIC: Denies rashes or pruritus. PSYCHIATRIC: Denies any suicidal or homicidal ideation. Denies hallucinations. PAST MEDICAL HISTORY: Morbid obesity, history of asthma, gastritis, seasonal allergies, history of fungal pneumonia in his childhood PAST SURGICAL HISTORY: History of tonsillectomy PAST SOCIAL HISTORY: Denies active smoking alcohol consumption FAMILY HISTORY: Prostate cancer in father, multiple brothers with history of constipation and anal fissures and perirectal infection Home medications: Cetirizine and Nexium Allergies: Patient denies known drug allergies Coded Allergies: No Known Drug Allergies (Unverified Allergy, Unknown, 01/08/17) PHYSICAL EXAM GENERAL APPEARANCE: The patient is awake, alert, and oriented, in no acute cardiopulmonary distress. Patient is morbidly obese NEUROLOGICAL: Cranial nerves II-XII grossly intact. Motor is 5/5 in bilateral upper and lower extremities proximal to distal. No sensory deficits. HEENT: Face is symmetric. Pupils are equal and reactive. Extraocular movements are intact. NECK: Supple. No JVD. No thyromegaly. No submental, submandibular, pre- /postauricular, occipital or supraclavicular lymphadenopathy. CHEST: Normal chest expansion. No Telemetry. LUNGS: Absence of any rales, rhonchi or any wheezing. CARDIOVASCULAR: Regular. S1 and S2 normal. No appreciable rubs, murmurs or gallops. ABDOMEN: Soft, nontender, and nondistended. There is no rebound, voluntary guarding, or rigidity. : Deferred. No Rabago. EXTREMITIES: Non-edematous and not cyanotic. No clubbing. Good capillary refill. SKIN: No skin breakdown. Vital Sign (Last 24 Hours) 11/24/24 11/24/24 11/24/24 07:34 15:16 19:58 Temp 99.5 Pulse 107 Resp 20 B/P (MAP) 114/60 Pulse Ox 96 O2 Delivery N/A Room Air O2 Flow Rate 0.0 FiO2 21 LABS: Laboratory: Test 11/24/24 18:36 11/24/24 18:21 11/24/24 06:43 Range/Units Influenza Type A Antigen Negative For Type A NEGATIVE Influenza Type B Antigen Negative For Type B NEGATIVE SARS-CoV-2, RNA, NAAT NEGATIVE SARS CoV-2 NEGATIVE Prothrombin Time 11.4 9.6-11.6 SEC Prothromb Time International Ratio 1.08 0.85-1.15 Activated Partial Thromboplast Time 30.2 26.3-35.5 SEC Total Bilirubin 0.8 0.2-1.0 mg/dL Direct Bilirubin 0.2 0.0-0.3 mg/dL Aspartate Amino Transf (AST/SGOT) 15 10-37 U/L Alanine Aminotransferase (ALT/SGPT) 38 12-78 U/L Alkaline Phosphatase 97 50-136 U/L Total Protein 7.3 6.0-8.3 g/dL Albumin 3.7 3.5-5.0 g/dL White Blood Count 12.0 H 4.8-10.8 K/uL Red Blood Count 4.64 4.50-6.20 MIL/uL Hemoglobin 13.5 L 14.0-18.0 g/dL Hematocrit 40.9 L 42-54 % Mean Corpuscular Volume 88.1 79-99 fL Mean Corpuscular Hemoglobin 29.1 27.0-33.0 pg Mean Corpuscular Hemoglobin Concent 33.0 32.0-36.0 g/dL Red Cell Distribution Width 12.5 11.0-15.5 % Platelet Count 185 130-400 K/uL Mean Platelet Volume 10.0 7.5-10.5 fL Immature Granulocyte % (Auto) 0.5 0-1 % Neutrophils (%) (Auto) 79.1 H 40.0-77.0 % Lymphocytes (%) (Auto) 11.9 L 21.0-51.0 % Monocytes (%) (Auto) 6.4 3.0-13.0 % Eosinophils (%) (Auto) 1.8 0.0-8.0 % Basophils (%) (Auto) 0.3 0.0-5.0 % Neutrophils # (Auto) 9.5 H 1.8-7.7 K/uL Lymphocytes # (Auto) 1.4 1.0-4.8 K/uL Monocytes # (Auto) 0.8 0.1-1.0 K/uL Eosinophils # (Auto) 0.22 0.00-0.70 K/uL Basophils # (Auto) 0.03 0.00-0.20 K/uL Absolute Immature Granulocyte (auto 0.06 0-1 K/uL Nucleated Red Blood Cells 0.0 0.0-0.19 % Sodium Level 136 136-145 mmol/L Potassium Level 4.0 3.5-5.1 mmol/L Chloride Level 101 101-111 mmol/L Carbon Dioxide Level 27 21-32 mmol/L Blood Urea Nitrogen 14 7-18 mg/dL Creatinine 0.8 0.5-1.3 mg/dL Glomerular Filtration Rate Calc 124 >90 mL/min Random Glucose 124 H 70-105 mg/dL Total Calcium 9.1 8.5-10.1 mg/dL HIV (1&2) Antibody Non-Reactive Negative HIV P24 Antigen, Qualitative Non-Reactive Negative Current Medications Medications (Trade) Dose Ordered Sig/Janes Route PRN Reason Start Time Stop Time Status Last Admin Dose Admin Acetaminophen (TYLenol 325MG TAB) 650 mg Q6H PRN PO MILD PAIN (1-3) 11/24/24 18:00 12/24/24 17:59 Albuterol (DUOneb) 1 udvial Q6H PRN IH SHORTNESS OF BREATH 11/24/24 18:00 12/24/24 17:59 11/24/24 19:58 1 UDVIAL Budesonide (Pulmicort 0.5 Mg/2ml) 0.5 mg BIDRESP IH 11/24/24 18:00 12/24/24 17:59 11/24/24 19:57 0.5 MG Lactated Ringer's 1,000 ml @ 75 mls/hr [id number] IV 11/24/24 18:00 12/24/24 17:59 11/24/24 18:20 75 MLS/HR Morphine Sulfate (morPHINE 2MG SYG) 2 mg Q6H PRN IVP SEVERE PAIN (7-10) 11/24/24 18:00 12/01/24 17:59 11/24/24 18:21 2 MG Ondansetron HCl (zoFRAN 4MG INJ) 4 mg Q6H PRN IVP NAUSEA/VOMITING 11/24/24 18:00 12/24/24 17:59 Pantoprazole Sodium (PROTonix 40MG INJ) 40 mg Q24H IVP 11/24/24 18:00 12/24/24 17:59 11/24/24 18:21 40 MG Piperacillin Sod/ Tazobactam Sod (Zosyn 3.375gm+NS 50ml) 3.375 gm Q8H IVPB 11/25/24 00:30 12/05/24 00:29 DIAGNOSTICS / RADIOLOGY: SERVICE 1405 REASON: rectal pain ORDERING PHYSICIAN: PARRIS PEREZ MD PROCEDURE: ABD PEL W - CT ABDOMEN/PELVIS W/CONTRAST CT ABDOMEN WITH CONTRAST. CT PELVIS WITH CONTRAST INDICATION: Rectal pain for 4 days TECHNIQUE: Routine transaxial images using 5 mm slice thickness were obtained after the intravenous infusion of 100 mL of Omnipaque 350 without adverse effects. Oral contrast was not administered. Rectal contrast was not administered. Coronal and sagittal reformatted images acquired for interpretation. CT was performed with one or more of the following dose reduction techniques: Automated exposure control, adjustment of the mA and/or kV according to patient size, or use of iterative reconstruction technique. COMPARISON: 11/23/2024 FINDINGS: Examination is slightly limited secondary to patient body habitus, and gantry artifact noted. ABDOMEN: Heart size is normal. Visible lung bases are clear. The liver is normal in size and smooth in contour without lesions or biliary duct dilation. Diffuse low attenuation of the liver parenchyma suggests fatty change. The spleen is normal in size without lesions. The gallbladder appears normal. The pancreas appears normal without pancreatic duct dilation. The adrenal glands appear normal. Subcentimeter simple cyst at the mid to lower portion of the right kidney. Left kidney appears normal. Cortical nephrograms are symmetric and normal in appearance bilaterally. No evidence for intra-abdominal free air or organized fluid collection. No retrocrural, intraabdominal, or retroperitoneal lymphadenopathy identified. No aortic aneurysmal dilation or dissection identified. PELVIS: No evidence for free air or organized pelvic fluid collection. No significant pelvic adenopathy detected. Visualized small and large bowel loops appear unremarkable. Terminal ileum appears normal. The appendix appears normal. No evidence for any rectal or perirectal abnormality. Irregular 5.1 cm soft tissue mass suspected near the anus. The urinary bladder appears unremarkable. Visible osseous structures are intact. IMPRESSION: Limitations as reported. 1. Irregular 5.1 cm enhancing soft tissue mass near the anus without any rectal or perirectal abnormality. 2. Hepatic steatosis. DICTATED BY: TANNA MORRIS MD DATE: 11/24/24 1538 ELECTRONICALLY SIGNED BY: TANNA MORRIS MD DATE: 11/24/24 1542 ASSESSMENT: Anorectal mass, POA Rectal tenesmus, POA Leukocytosis, POA Morbid obesity, POA Hepatic steatosis, POA Untreated obstructive sleep apnea, POA History of gastritis, POA History of seasonal allergies, POA PLAN: 29-year-old male presenting with tenesmus and on further workup on CT abdomen pelvis with IV contrast, 5.1 cm mass was noted arising close to the anus. Per ER physician, no overt mass was seen in the external anal area, he suspects mass might be in the rectal area. Will need to also r/o any developing infection including perirectal abscess Patient will be kept NPO Consultation has already been obtained with Dr. Robb with General surgery, will await further evaluation we will start patient on lactated Ringer's at 75 mL/hour, broad-spectrum antibiotics with IV Zosyn We will request consultation with medical oncology Patient will be started on CPAP tonight, we will have pulmonology see this patient, patient will need outpatient sleep study Patient will be placed on Protonix for GI prophylaxis We will start patient on Lovenox for DVT prophylaxis Once patient gets better, patient was counseled on losing weight, patient verbalized understanding Date of service: 11/24/2024 Plan of care was discussed with patient and at bedside, Wilbur Murillo MD Advanced Care Planning: Which of the following were discussed: Hospice care: Yes __ No _x_ Therapeutic options: Yes _x_ No __ Advance directives: Yes _x_ No __ Other discussions: Discussed with who?: Patient Voluntary nature of this service was explained to the patient? Yes _x_ No __ Amount of time spent: 20 minutes WILBUR MURILLO MD Nov 24, 2024 20:33
--- NOTE | 2024-11-24 22:21 | NUR ---
HOSPITAL BED REQUESTED FOR PATIENT
[2024-11-24] MEDS: acetaMINOPHEN 325 MG TAB PO PRN (22:26)
[2024-11-24] MEDS ORDERED: acetaMINOPHEN 1,000 MG/100 ML VIAL IVPB ONE (22:30)
[2024-11-24] MEDS: ketOROlac 15MG/ML VIAL (15MG/ML) IV ONE (22:45)
[2024-11-24 23:33] VITALS: PULSE 102; RESP 18; O2SAT 97
[2024-11-25] VITALS (34 sets, daily range): BP systolic 101–158; BP diastolic 43–88; PULSE 76–111; RESP 18–28; TEMP 97.6–99.4; O2SAT 93–99
[2024-11-25] MEDS: ZOSYN 3.375GM +NS 50ML IVPB SCH (00:44)
[2024-11-25 04:56] LABS: BASOPHILS # (AUTO) 0.02 K/uL (0.00-0.20); BASOPHILS % (AUTO) 0.2 % (0.0-5.0); EOSINOPHILS # (AUTO) 0.15 K/uL (0.00-0.70); EOSINOPHILS % (AUTO) 1.2 % (0.0-8.0); HEMATOCRIT 37.6 % (42-54); IMMATURE GRANULOCYTE ABSOLUTE 0.05 K/uL (0-1); LYMPHOCYTES # (AUTO) 1.7 K/uL (1.0-4.8); LYMPHOCYTES % (AUTO) 13.3 % (21.0-51.0); MEAN CORPUSCULAR HEMOGLOBIN 28.7 pg (27.0-33.0); MEAN CORPUSCULAR HGB CONC 32.7 g/dL (32.0-36.0); MEAN CORPUSCULAR VOLUME 87.9 fL (79-99); MONOCYTES # (AUTO) 0.9 K/uL (0.1-1.0); MONOCYTES % (AUTO) 6.8 % (3.0-13.0); NEUTROPHILS % (AUTO) 78.1 % (40.0-77.0); PLATELET COUNT (AUTO) 173 K/uL (130-400); RED BLOOD CELL COUNT(AUTO) 4.28 MIL/uL (4.50-6.20); RED CELL DISTRIBUTION WIDTH 12.7 % (11.0-15.5); WHITE BLOOD COUNT (AUTO) 12.8 K/uL (4.8-10.8)
[2024-11-25 05:22] LABS: ALBUMIN 3.3 g/dL (3.5-5.0); BILIRUBIN,TOTAL 0.8 mg/dL (0.2-1.0); CREATININE 0.8 mg/dL (0.5-1.3); MAGNESIUM 1.9 mg/dL (1.80-2.40); POTASSIUM 3.7 mmol/L (3.5-5.1); TOTAL PROTEIN, SERUM 6.7 g/dL (6.0-8.3)
[2024-11-25 11:56] LABS: ABG BASE EXCESS -0.5 mmol/L (-2.0-3.0); ABG OXYGEN SATURATION 92.5 % (94.0-98.0); ABG PCO2 39 mmHg (35-48); ABG PH 7.403 (7.350-7.450); PO2, ARTERIAL BG 63.9 mmHg (83.0-108.0); VENT MODE, BG RA (ROOM AIR)
[2024-11-25] MEDS ORDERED: hydroMORPHone 1 MG INJ IVP PRN (12:00)
[2024-11-25] MEDS: ketOROlac 30MG VIAL (30MG/ML) IVP SCH (12:48)
[2024-11-25] MEDS: ENOXAPARIN SODIUM 40 MG/0.4 ML SYRINGE SQ SCH (13:00)
--- NOTE | 2024-11-25 13:15 | PN ---
[facility] PROGRESS NOTE Date of Service: Nov 25, 2024 Time of Service: 13:12 SUBJECTIVE: [ ] 11/25/24 patient was seen examined on the medical floor. Case discussed with the RN. He is doing better though has lot of pain. He denies nausea vomiting REVIEW OF SYSTEMS CONSTITUTIONAL: Denies fevers, chills, or night sweats. No unintentional weight loss reported. NEUROLOGICAL: Denies headache, amaurosis fugax, motor weakness, sensory deficit, vertigo/spinning sensation, gait abnormalities, or tremors. ENT: No hearing loss, otalgia, otorrhea, rhinitis, rhinorrhea, hoarseness, or sore throat. CARDIOVASCULAR: Denies any exertional angina, dyspnea on exertion, orthopnea, paroxysmal nocturnal dyspnea, palpitations, life-threatening arrhythmias, claudication. PULMONARY: Denies any shortness of breath, cough, phlegm/sputum, hemoptysis, pleuritic chest pain. SLEEP: Denies morning headaches, daytime somnolence or napping. Denies difficulty falling asleep, staying asleep, waking from sleep. Denies knowledge of snoring. GASTROINTESTINAL: Tenesmus, rectal pain GENITOURINARY: Denies frequency, urgency, nocturia, hematuria or incontinence (Storage/Irritative symptoms.) Low urinary stream, straining to void, urinary intermittency or hesitancy, splitting of the voiding stream, terminal dribbling. ENDOCRINOLOGIC: Denies polyuria, polydipsia, polyphagia or heat/cold intolerances. HEMATOLOGIC: Denies thrombophilia/previous clots, or coagulopathy/bleeding disorders. ONCOLOGIC: Denies personal history of malignancy. DERMATOLOGIC: Denies rashes or pruritus. PSYCHIATRIC: Denies any suicidal or homicidal ideation. Denies hallucinations. PHYSICAL EXAM GENERAL APPEARANCE: The patient is awake, alert, and oriented, in no acute cardiopulmonary distress. Patient is morbidly obese NEUROLOGICAL: Cranial nerves II-XII grossly intact. Motor is 5/5 in bilateral upper and lower extremities proximal to distal. No sensory deficits. HEENT: Face is symmetric. Pupils are equal and reactive. Extraocular movements are intact. NECK: Supple. No JVD. No thyromegaly. No submental, submandibular, pre- /postauricular, occipital or supraclavicular lymphadenopathy. CHEST: Normal chest expansion. No Telemetry. LUNGS: Absence of any rales, rhonchi or any wheezing. CARDIOVASCULAR: Regular. S1 and S2 normal. No appreciable rubs, murmurs or gallops. ABDOMEN: Soft, nontender, and nondistended. There is no rebound, voluntary guarding, or rigidity. : Deferred. No Rabago. EXTREMITIES: Non-edematous and not cyanotic. No clubbing. Good capillary refill. SKIN: No skin breakdown. Vital Signs (last 8hr) Date Time Temp Pulse Resp B/P (MAP) Pulse Ox O2 Delivery O2 Flow Rate FiO2 11/25/24 11:59 88 18 N/A Room Air 0.0 21 11/25/24 08:00 97.9 76 20 101/55 97 Room Air 11/25/24 06:31 80 22 11/25/24 06:28 80 22 21 LABS: Laboratory: Test 11/25/24 11:54 11/25/24 04:10 11/24/24 20:31 11/24/24 18:36 Range/Units Blood Gas Specimen Type Arterial Arterial Blood pH 7.403 7.350-7.450 Arterial Blood Partial Pressure CO2 39 35-48 mmHg Arterial Blood Partial Pressure O2 63.9 L 83.0-108.0 mmHg Arterial Blood HCO3 24.0 21.0-28.0 mmol/L Arterial Blood Oxygen Saturation 92.5 L 94.0-98.0 % Arterial Blood Base Excess -0.5 -2.0-3.0 mmol/L Blood Gas Temperature 37.0 35.5-37.0 CELSIUS Blood Gas Vent Mode RA ROOM AIR FiO2 21.0 % Blood Gas Specimen Comment RR DANIELLA White Blood Count 12.8 H 4.8-10.8 K/uL Red Blood Count 4.28 L 4.50-6.20 MIL/uL Hemoglobin 12.3 L 14.0-18.0 g/dL Hematocrit 37.6 L 42-54 % Mean Corpuscular Volume 87.9 79-99 fL Mean Corpuscular Hemoglobin 28.7 27.0-33.0 pg Mean Corpuscular Hemoglobin Concent 32.7 32.0-36.0 g/dL Red Cell Distribution Width 12.7 11.0-15.5 % Platelet Count 173 130-400 K/uL Mean Platelet Volume 9.8 7.5-10.5 fL Immature Granulocyte % (Auto) 0.4 0-1 % Neutrophils (%) (Auto) 78.1 H 40.0-77.0 % Lymphocytes (%) (Auto) 13.3 L 21.0-51.0 % Monocytes (%) (Auto) 6.8 3.0-13.0 % Eosinophils (%) (Auto) 1.2 0.0-8.0 % Basophils (%) (Auto) 0.2 0.0-5.0 % Neutrophils # (Auto) 10.0 H 1.8-7.7 K/uL Lymphocytes # (Auto) 1.7 1.0-4.8 K/uL Monocytes # (Auto) 0.9 0.1-1.0 K/uL Eosinophils # (Auto) 0.15 0.00-0.70 K/uL Basophils # (Auto) 0.02 0.00-0.20 K/uL Absolute Immature Granulocyte (auto 0.05 0-1 K/uL Nucleated Red Blood Cells 0.0 0.0-0.19 % Sodium Level 138 136-145 mmol/L Potassium Level 3.7 3.5-5.1 mmol/L Chloride Level 102 101-111 mmol/L Carbon Dioxide Level 29 21-32 mmol/L Blood Urea Nitrogen 10 7-18 mg/dL Creatinine 0.8 0.5-1.3 mg/dL Glomerular Filtration Rate Calc 124 >90 mL/min Random Glucose 104 70-105 mg/dL Total Calcium 8.8 8.5-10.1 mg/dL Magnesium Level 1.90 1.80-2.40 mg/dL Total Bilirubin 0.8 0.2-1.0 mg/dL Aspartate Amino Transf (AST/SGOT) 13 10-37 U/L Alanine Aminotransferase (ALT/SGPT) 33 12-78 U/L Alkaline Phosphatase 86 50-136 U/L Total Protein 6.7 6.0-8.3 g/dL Albumin 3.3 L 3.5-5.0 g/dL Erythrocyte Sedimentation Rate 14 0-15 MM/HR C-Reactive Protein, Quantitative 52.90 H 0.5-3.0 mg/L Procalcitonin < 0.05 L 0.05-0.5 ng/mL Influenza Type A Antigen Negative For Type A NEGATIVE Influenza Type B Antigen Negative For Type B NEGATIVE SARS-CoV-2, RNA, NAAT NEGATIVE SARS CoV-2 NEGATIVE Test 11/24/24 18:21 11/24/24 06:43 Range/Units Prothrombin Time 11.4 9.6-11.6 SEC Prothromb Time International Ratio 1.08 0.85-1.15 Activated Partial Thromboplast Time 30.2 26.3-35.5 SEC Direct Bilirubin 0.2 0.0-0.3 mg/dL HIV (1&2) Antibody Non-Reactive Negative HIV P24 Antigen, Qualitative Non-Reactive Negative Current Medications Medications (Trade) Dose Ordered Sig/Janes Route PRN Reason Start Time Stop Time Status Last Admin Dose Admin Acetaminophen (TYLenol 325MG TAB) 650 mg Q6H PRN PO MILD PAIN (1-3) 11/24/24 18:00 12/24/24 17:59 11/24/24 22:26 650 MG Albuterol (DUOneb) 1 udvial Q6H PRN IH SHORTNESS OF BREATH 11/24/24 18:00 12/24/24 17:59 11/24/24 23:33 1 UDVIAL Budesonide (Pulmicort 0.5 Mg/2ml) 0.5 mg BIDRESP IH 11/24/24 18:00 12/24/24 17:59 11/25/24 06:27 0.5 MG Enoxaparin Sodium (Lovenox) 40 mg DAILY SQ 11/25/24 13:00 12/25/24 12:59 Hydromorphone HCl (DiLAUDid 1MG INJ) 1 mg Q3H3 PRN IVP SEVERE PAIN (7-10) 11/25/24 12:00 11/30/24 11:59 Ketorolac Tromethamine (toRADol) 30 mg Q6H IVP 11/25/24 12:00 11/30/24 11:59 11/25/24 12:48 30 MG Lactated Ringer's 1,000 ml @ 75 mls/hr [id number] IV 11/24/24 18:00 12/24/24 17:59 11/25/24 08:22 75 MLS/HR Morphine Sulfate (morPHINE 2MG SYG) 2 mg Q6H PRN IVP SEVERE PAIN (7-10) 11/24/24 18:00 11/25/24 11:45 DC 11/25/24 08:19 2 MG Ondansetron HCl (zoFRAN 4MG INJ) 4 mg Q6H PRN IVP NAUSEA/VOMITING 11/24/24 18:00 12/24/24 17:59 Pantoprazole Sodium (PROTonix 40MG INJ) 40 mg Q24H IVP 11/24/24 18:00 12/24/24 17:59 11/24/24 18:21 40 MG Piperacillin Sod/ Tazobactam Sod (Zosyn 3.375gm+NS 50ml) 3.375 gm Q8H IVPB 11/25/24 00:30 12/05/24 00:29 11/25/24 08:19 3.375 GM DIAGNOSTICS / RADIOLOGY: [ ] ASSESSMENT: Anorectal mass, POA Rectal tenesmus, POA Leukocytosis, POA Morbid obesity, POA Hepatic steatosis, POA Untreated obstructive sleep apnea, POA History of gastritis, POA History of seasonal allergies, POA PLAN: 29-year-old male presenting with tenesmus and on further workup on CT abdomen pelvis with IV contrast, 5.1 cm mass was noted arising close to the anus. Per ER physician, no overt mass was seen in the external anal area, he suspects mass might be in the rectal area. Will need to also r/o any developing infection Patient will be kept NPO Consultation has already been obtained with Dr. Rbob with General surgery we will start patient on lactated Ringer's at 75 mL/hour, broad-spectrum antibiotics with IV Zosyn We will request consultation with medical oncology Patient will be started on CPAP tonight, we will have pulmonology see this patient, patient will need outpatient sleep study Patient will be placed on Protonix for GI prophylaxis We will start patient on Lovenox for DVT prophylaxis Patient will further benefit from sigmoidoscopy/colonoscopy for further diagnostic evaluation and tissue biopsy, we will obtain a CEA level as well, HIV testing was noted to be negative Once patient gets better, patient was counseled on losing weight, patient verbal ized understanding Date of service: 11/24/2024 Plan of care was discussed with patient and at bedside, Advanced Care Planning: Which of the following were discussed: Hospice care: Yes __ No _x_ Therapeutic options: Yes _x_ No __ Advance directives: Yes _x_ No __ Other discussions: Discussed with who?: Patient Voluntary nature of this service was explained to the patient? Yes _x_ No __ Amount of time spent: 20 minutes KELLY PONCE MD Nov 25, 2024 13:15
--- NOTE | 2024-11-25 14:40 | PN ---
[facility] PROGRESS NOTE Date Patient Seen: Nov 25, 2024 Time of Visit: 14:37 Supervising Physician: CAMERON STEELE Consulting Physician: Dr Murillo Outpatient Specialists: [ ] Inpatient Consults: [ ] PROBLEM LIST: Obstructive sleep apnea, POA Obesity hypoventilation syndrome, POA Morbid obesity, BMI of 58.4 Rectal mass, POA Hepatic steatosis, POA Leukocytosis, POA History of chronic bronchitis, asthma PLAN: Antibiotic management per primary CPAP at night - outpatient sleep study once discharged DuoNeb q.6 as needed for shortness of breaths Keep head of bed above 30 Incentive spirometry Keep O2 saturation above 90% Rest of plan care of primary INTERVAL HISTORY: Patient was seen and examined by me , laying in bed , continues on IV antibiotics Was able to tolerate - CPAP overnight CXR reviewed . lifetsyle modifications and weightloss encouraged . REVIEW OF SYSTEMS: 12 point ROS reviewed with patient. Pertinent positives mentioned above. Otherwise negative. PHYSICAL EXAM: GENERAL: alert, weak, awake oriented x 3 HEENT: EOMI, Sclera non icteric, moist mucosa NECK: Supple, no JVD, trachea midline LUNGS: Clear breath sounds bilaterally. No wheezes HEART: Regular rate and rhythm. Normal S1 and S2, without murmurs ABD: Large body habitus EXT: No clubbing cyanosis or edema NEURO: Alert and oriented to person, follows commands Vital Signs (last 8hr) Date Time Temp Pulse Resp B/P (MAP) Pulse Ox O2 Delivery O2 Flow Rate FiO2 11/25/24 11:59 88 18 N/A Room Air 0.0 21 11/25/24 08:00 97.9 76 20 101/55 97 Room Air LABS: Hematology Labs: Test 11/25/24 04:10 11/24/24 20:31 Range/Units White Blood Count 12.8 H 4.8-10.8 K/uL Red Blood Count 4.28 L 4.50-6.20 MIL/uL Hemoglobin 12.3 L 14.0-18.0 g/dL Hematocrit 37.6 L 42-54 % Mean Corpuscular Volume 87.9 79-99 fL Mean Corpuscular Hemoglobin 28.7 27.0-33.0 pg Mean Corpuscular Hemoglobin Concent 32.7 32.0-36.0 g/dL Red Cell Distribution Width 12.7 11.0-15.5 % Platelet Count 173 130-400 K/uL Mean Platelet Volume 9.8 7.5-10.5 fL Immature Granulocyte % (Auto) 0.4 0-1 % Neutrophils (%) (Auto) 78.1 H 40.0-77.0 % Lymphocytes (%) (Auto) 13.3 L 21.0-51.0 % Monocytes (%) (Auto) 6.8 3.0-13.0 % Eosinophils (%) (Auto) 1.2 0.0-8.0 % Basophils (%) (Auto) 0.2 0.0-5.0 % Neutrophils # (Auto) 10.0 H 1.8-7.7 K/uL Lymphocytes # (Auto) 1.7 1.0-4.8 K/uL Monocytes # (Auto) 0.9 0.1-1.0 K/uL Eosinophils # (Auto) 0.15 0.00-0.70 K/uL Basophils # (Auto) 0.02 0.00-0.20 K/uL Absolute Immature Granulocyte (auto 0.05 0-1 K/uL Nucleated Red Blood Cells 0.0 0.0-0.19 % Erythrocyte Sedimentation Rate 14 0-15 MM/HR Chemistry Labs: Test 11/25/24 04:10 11/24/24 20:31 11/24/24 18:21 Range/Units Sodium Level 138 136-145 mmol/L Potassium Level 3.7 3.5-5.1 mmol/L Chloride Level 102 101-111 mmol/L Carbon Dioxide Level 29 21-32 mmol/L Blood Urea Nitrogen 10 7-18 mg/dL Creatinine 0.8 0.5-1.3 mg/dL Glomerular Filtration Rate Calc 124 >90 mL/min Random Glucose 104 70-105 mg/dL Total Calcium 8.8 8.5-10.1 mg/dL Magnesium Level 1.90 1.80-2.40 mg/dL Total Bilirubin 0.8 0.2-1.0 mg/dL Aspartate Amino Transf (AST/SGOT) 13 10-37 U/L Alanine Aminotransferase (ALT/SGPT) 33 12-78 U/L Alkaline Phosphatase 86 50-136 U/L Total Protein 6.7 6.0-8.3 g/dL Albumin 3.3 L 3.5-5.0 g/dL C-Reactive Protein, Quantitative 52.90 H 0.5-3.0 mg/L Procalcitonin < 0.05 L 0.05-0.5 ng/mL Direct Bilirubin 0.2 0.0-0.3 mg/dL Coagulation Labs: Test 11/24/24 18:21 Range/Units Prothrombin Time 11.4 9.6-11.6 SEC Prothromb Time International Ratio 1.08 0.85-1.15 Activated Partial Thromboplast Time 30.2 26.3-35.5 SEC DIAGNOSTICS / RADIOLOGY RESULTS: [ ] PLAN NEURO: Minimize central acting medications as possible. Maintain fall precautions, adequate lighting during the day PULMONARY: Supplemental 02 as needed. Maintain aspiration precautions at all times CARDIOVASCULAR: Follow hemodynamics. Vital signs per facility protocol GI & NUTRITION: Continue with nutritional support. Continue stool softeners and laxatives as needed. KIDNEYS & ELECTROLYTES: Strict monitoring of intake, output and overall fluid balance. Avoid nephrotoxic medications to the extent possible. Medications to be dosed according to renal function. Monitor electrolytes and replace as needed ENDOCRINE: Maintain blood glucose between 100-180 at all times. Hypoglycemia protocol in place INFECTIOUS DISEASE: Trend temperature, WBC and procalcitonin level Follow cultures, deescalate antibiotics as soon as possible. Panculture if new onset fever ONCOLOGY/HEMATOLOGY/COAGULATION: Monitor for s/s of bleeding Monitor hemoglobin, coagulation studies as needed SKIN: Pressure ulcer prevention per facility protocol Specialty mattress ORTHO/REHAB: Continue PT/OT Prophylaxis: Continue GI and DVT prophylaxis Code Status: Full Resuscitation Disposition: TBD Other: Total patient care time exceeds 35 minutes excluding all procedures. JOEL HERNANDEZ Nov 25, 2024 14:40
[2024-11-25] MEDS ORDERED: SUCCINYLCHOLINE CHLORIDE 20 MG/ML 10 ML VIAL ONE (15:22)
[2024-11-25] MEDS ORDERED: proPOFol 10 MG/ML 20ML VIAL IV ONE ×2 (15:22→16:29)
[2024-11-25] MEDS ORDERED: GLYCOPYRROLATE 0.2 MG/ML 5 ML VIAL ONE (15:22)
[2024-11-25] MEDS ORDERED: dexaMETHasone SOD PHOSPHATE 10MG/ML 1ML VIAL ONE (15:22)
[2024-11-25] MEDS ORDERED: LIDOCAINE PF 100MG/5ML (2%) SYRINGE 5ML ONE (15:22)
[2024-11-25] MEDS ORDERED: NEOSTIGMINE METHYLSULFATE 1MG/ML IV ONE (15:22)
[2024-11-25] MEDS ORDERED: ondanSETRON 4MG INJ ONE (15:22)
[2024-11-25] MEDS ORDERED: FENTanyl CITRate PF 50 MCG/1 ML 2ML VIAL ONE ×2 (15:23→17:23)
[2024-11-25] MEDS ORDERED: rocuRONium bROMide 10MG/1ML 5ML VL ONE (15:23)
[2024-11-25] MEDS ORDERED: MIDAZOLAM HCL 1 MG/ML 2ML VIAL ONE (15:27)
[2024-11-25] MEDS: ZOSYN 3.375GM+NS 50ML 50 ML ONE (16:16)
[2024-11-25] MEDS ORDERED: ketaMINE 50MG/ML SYRINGE 50 MG/ML DISP.SYRIN ONE (16:34)
[2024-11-25] MEDS: FAMOTIDINE 20MG VIAL IV ONE (16:41)
[2024-11-25] MEDS: SUGAMMADEX SODIUM 200 MG/2 ML VIAL IV ONE (16:42)
[2024-11-25] MEDS: ceFAZolin SODIUM 1 GM VIAL IRRIG ONE (17:25)
[2024-11-25] MEDS ORDERED: ceFAZolin SODIUM 1 GM VIAL ONE (17:38)
[2024-11-25] MEDS: BUPIvacaine/PF 0.25% 30ML VIAL IJ ONE (17:40)
[2024-11-25] MEDS: ketOROlac 60 MG VIAL (30MG/ML) IM ONE (17:40)
[2024-11-25] MEDS ORDERED: LIDOCAINE 1%-EPI 1:100,000 20 ML VIAL ONE (17:41)
[2024-11-25] MEDS: ketOROlac 30MG VIAL (30MG/ML) ONE (17:46)
[2024-11-25] MEDS: acetaMINOPHEN 100 ML ONE (18:16)
--- NOTE | 2024-11-25 19:56 | CONS ---
GENERAL SURGERY CONSULTATION NOTE DATE OF CONSULTATION: Nov 25, 2024 TIME OF CONSULTATION: 19:56 CONSULTING SERVICE: Anne Ochoa MD REQUESTING PHYSICAIN: [ ] REASON FOR CONSULTATION: [ ] Perianal pain Anal mass HISTORY OF PRESENT ILLNESS: [ ]29-year-old male who presented with sudden onset of perianal pain Said pain started two days prior no fever No trauma prior to onset Pain is associated PAST MEDICAL HISTORY: [ ] non PAST SURGICAL HISTORY: [ ] none FAMILY HISTORY: [ ] positive for prostate cancer Positive for hypertension and diabetes SOCIAL HISTORY: [ ] no smoking No alcohol Current Medications Medications (Trade) Dose Ordered Sig/Janes Route Start Time Stop Time Status Last Admin Dose Admin Budesonide (Pulmicort 0.5 Mg/2ml) 0.5 mg BIDRESP IH 11/24/24 18:00 12/24/24 17:59 11/25/24 06:27 0.5 MG Enoxaparin Sodium (Lovenox) 40 mg DAILY SQ 11/25/24 13:00 12/25/24 12:59 Ketorolac Tromethamine (toRADol) 30 mg Q6H IVP 11/25/24 12:00 11/30/24 11:59 11/25/24 12:48 30 MG Lactated Ringer's 1,000 ml @ 75 mls/hr [id number] IV 11/24/24 18:00 12/24/24 17:59 11/25/24 08:22 75 MLS/HR Pantoprazole Sodium (PROTonix 40MG INJ) 40 mg Q24H IVP 11/24/24 18:00 12/24/24 17:59 11/24/24 18:21 40 MG Piperacillin Sod/ Tazobactam Sod (Zosyn 3.375gm+NS 50ml) 3.375 gm Q8H IVPB 11/25/24 00:30 12/05/24 00:29 11/25/24 08:19 3.375 GM Allergies: Coded Allergies: No Known Drug Allergies (Unverified Allergy, Unknown, 01/08/17) REVIEW OF SYSTEMS: MUSEUM OR ZOO DIRECTOR: [Denies headaches or blurring of vision.] RESP: [No cough, chest pain or SOB.] CVS: [No palpitaions.] GI: [No abdominal pain Perianal painn.] ANDREZ: [No dysuria or hematuria.] Musculoskeletal: [No swelling or joint pain.] BACK: [No pain or swelling.] All other systems are reviewed and essentially negative pertinent positives in HPI. PHYSICAL EXAMINATION: GENERAL: [Patient is lying comfortably in bed, not in any obvious distress.] HEAD: [Normal with no signs of head trauma.] EYES: [Not pale not jaundiced afebrile to touch.] ENT: [ Normal.] NECK: [Supple,no tenderness,no lymphadenopathy,no masses,no thyromegaly ,no bruits, no JVD.] LUNGS: [Clear breath sounds bilaterally. No wheezes, rales, or rhonchi.] HEART: [Regular rate and rhythm. Normal S1 and S2, without murmurs, rub or gallop.] VASC: [No edema. Peripheral pulses normal and equal in all extremities.] ABD: [Obese benign KS severe tenderness Unable to examine : [Normal, no suprapubic tenderness.] LYMPH: [No lymphadenopathy noted.] EXT: [ Warm soft, non tender.] SKIN: [ No rashes or lesions.] NEURO: [ Awake Alert and oriented x3.] Vital Signs (last 8hr) Date Time Temp Pulse Resp B/P (MAP) Pulse Ox O2 Delivery O2 Flow Rate FiO2 11/25/24 19:24 98 22 125/76 94 Nasal Cannula 3.0 11/25/24 19:09 97 21 129/81 94 Nasal Cannula 3.0 11/25/24 19:04 101 22 144/83 93 Nasal Cannula 3.0 11/25/24 18:59 104 21 141/85 93 Nasal Cannula 3.0 11/25/24 18:54 107 22 145/79 94 Nasal Cannula 3.0 11/25/24 18:49 110 21 135/79 94 Nasal Cannula 3.0 11/25/24 18:44 105 23 138/83 95 Nasal Cannula 3.0 11/25/24 18:39 104 24 141/66 99 Nasal Cannula 3.0 11/25/24 18:34 103 22 123/82 100 Nonrebreathing Mask 10.0 11/25/24 18:29 97 20 141/79 100 Nonrebreathing Mask 10.0 11/25/24 18:24 104 24 135/58 99 Nonrebreathing Mask 10.0 11/25/24 18:19 107 22 133/58 100 Nonrebreathing Mask 10.0 11/25/24 18:14 111 21 127/65 100 Nonrebreathing Mask 10.0 11/25/24 18:09 97.7 109 26 126/69 100 Nonrebreathing Mask 10.0 11/25/24 12:00 99.3 85 20 134/76 96 Room Air 11/25/24 11:59 88 18 N/A Room Air 0.0 21 LABORATORY: [ ] Hematology Labs: Test 11/25/24 04:10 11/24/24 20:31 Range/Units White Blood Count 12.8 H 4.8-10.8 K/uL Red Blood Count 4.28 L 4.50-6.20 MIL/uL Hemoglobin 12.3 L 14.0-18.0 g/dL Hematocrit 37.6 L 42-54 % Mean Corpuscular Volume 87.9 79-99 fL Mean Corpuscular Hemoglobin 28.7 27.0-33.0 pg Mean Corpuscular Hemoglobin Concent 32.7 32.0-36.0 g/dL Red Cell Distribution Width 12.7 11.0-15.5 % Platelet Count 173 130-400 K/uL Mean Platelet Volume 9.8 7.5-10.5 fL Immature Granulocyte % (Auto) 0.4 0-1 % Neutrophils (%) (Auto) 78.1 H 40.0-77.0 % Lymphocytes (%) (Auto) 13.3 L 21.0-51.0 % Monocytes (%) (Auto) 6.8 3.0-13.0 % Eosinophils (%) (Auto) 1.2 0.0-8.0 % Basophils (%) (Auto) 0.2 0.0-5.0 % Neutrophils # (Auto) 10.0 H 1.8-7.7 K/uL Lymphocytes # (Auto) 1.7 1.0-4.8 K/uL Monocytes # (Auto) 0.9 0.1-1.0 K/uL Eosinophils # (Auto) 0.15 0.00-0.70 K/uL Basophils # (Auto) 0.02 0.00-0.20 K/uL Absolute Immature Granulocyte (auto 0.05 0-1 K/uL Nucleated Red Blood Cells 0.0 0.0-0.19 % Erythrocyte Sedimentation Rate 14 0-15 MM/HR Chemistry Labs: Test 11/25/24 04:10 11/24/24 20:31 11/24/24 18:21 Range/Units Sodium Level 138 136-145 mmol/L Potassium Level 3.7 3.5-5.1 mmol/L Chloride Level 102 101-111 mmol/L Carbon Dioxide Level 29 21-32 mmol/L Blood Urea Nitrogen 10 7-18 mg/dL Creatinine 0.8 0.5-1.3 mg/dL Glomerular Filtration Rate Calc 124 >90 mL/min Random Glucose 104 70-105 mg/dL Total Calcium 8.8 8.5-10.1 mg/dL Magnesium Level 1.90 1.80-2.40 mg/dL Total Bilirubin 0.8 0.2-1.0 mg/dL Aspartate Amino Transf (AST/SGOT) 13 10-37 U/L Alanine Aminotransferase (ALT/SGPT) 33 12-78 U/L Alkaline Phosphatase 86 50-136 U/L Total Protein 6.7 6.0-8.3 g/dL Albumin 3.3 L 3.5-5.0 g/dL C-Reactive Protein, Quantitative 52.90 H 0.5-3.0 mg/L Procalcitonin < 0.05 L 0.05-0.5 ng/mL Direct Bilirubin 0.2 0.0-0.3 mg/dL Coagulation Labs: Test 11/24/24 18:21 Range/Units Prothrombin Time 11.4 9.6-11.6 SEC Prothromb Time International Ratio 1.08 0.85-1.15 Activated Partial Thromboplast Time 30.2 26.3-35.5 SEC DIAGNOSTICS / RADIOLOGY: [Copy/Paste Echos/Imaging Report here] ASSESSMENT: [] Perianal pain Question perirectal abscess PLAN: [] NPO/IVF/IV ANTIOBIOTICS Schedule for OR We talked about various treatment options including but not limited to surgery. We talked about risks and benefits of surgery, patient verbalized understanding has agreed to proceed [ ]. We will schedule [ examination under anesthesia and any indicated procedures ]. ANNE OCHOA MD Nov 25, 2024 19:56
[2024-11-26] VITALS (15 sets, daily range): BP systolic 111–139; BP diastolic 57–66; PULSE 54–92; RESP 18–28; TEMP 97.8–98.5; O2SAT 94–98
[2024-11-26 04:36] LABS: HEMATOCRIT 38.7 % (42-54); MEAN CORPUSCULAR HEMOGLOBIN 28.6 pg (27.0-33.0); MEAN CORPUSCULAR HGB CONC 33.1 g/dL (32.0-36.0); MEAN CORPUSCULAR VOLUME 86.4 fL (79-99); RED BLOOD CELL COUNT(AUTO) 4.48 MIL/uL (4.50-6.20); RED CELL DISTRIBUTION WIDTH 12.1 % (11.0-15.5); WHITE BLOOD COUNT (AUTO) 19.4 K/uL (4.8-10.8)
[2024-11-26 05:08] LABS: CREATININE 0.9 mg/dL (0.5-1.3); POTASSIUM 4.1 mmol/L (3.5-5.1); THYROID STIMULATING HORMONE 0.48 uIU/mL (0.36-3.74)
[2024-11-26] MEDS: oxyCODONE/aceTAMIN 5/325MG TAB PO PRN (08:42)
[2024-11-26] MEDS ORDERED: VANCOMYCIN PROTOCOL PER PHARMACY IV SCH (10:30)
[2024-11-26] MEDS ORDERED: VANCOMYCIN KIT 1 GM/250 ML IV.KIT IV SCH (10:30)
--- NOTE | 2024-11-26 12:07 | PN ---
[facility] PROGRESS NOTE Date of Service: Nov 26, 2024 Time of Service: 12:00 SUBJECTIVE: [ ] 11/25/24 patient was seen examined on the medical floor. Case discussed with the RN. He is doing better though has lot of pain. He denies nausea vomiting REVIEW OF SYSTEMS CONSTITUTIONAL: Denies fevers, chills, or night sweats. No unintentional weight loss reported. NEUROLOGICAL: Denies headache, amaurosis fugax, motor weakness, sensory deficit, vertigo/spinning sensation, gait abnormalities, or tremors. ENT: No hearing loss, otalgia, otorrhea, rhinitis, rhinorrhea, hoarseness, or sore throat. CARDIOVASCULAR: Denies any exertional angina, dyspnea on exertion, orthopnea, paroxysmal nocturnal dyspnea, palpitations, life-threatening arrhythmias, claudication. PULMONARY: Denies any shortness of breath, cough, phlegm/sputum, hemoptysis, pleuritic chest pain. SLEEP: Denies morning headaches, daytime somnolence or napping. Denies difficulty falling asleep, staying asleep, waking from sleep. Denies knowledge of snoring. GASTROINTESTINAL: Tenesmus, rectal pain GENITOURINARY: Denies frequency, urgency, nocturia, hematuria or incontinence (Storage/Irritative symptoms.) Low urinary stream, straining to void, urinary intermittency or hesitancy, splitting of the voiding stream, terminal dribbling. ENDOCRINOLOGIC: Denies polyuria, polydipsia, polyphagia or heat/cold intolerances. HEMATOLOGIC: Denies thrombophilia/previous clots, or coagulopathy/bleeding disorders. ONCOLOGIC: Denies personal history of malignancy. DERMATOLOGIC: Denies rashes or pruritus. PSYCHIATRIC: Denies any suicidal or homicidal ideation. Denies hallucinations. PHYSICAL EXAM GENERAL APPEARANCE: The patient is awake, alert, and oriented, in no acute cardiopulmonary distress. Patient is morbidly obese NEUROLOGICAL: Cranial nerves II-XII grossly intact. Motor is 5/5 in bilateral upper and lower extremities proximal to distal. No sensory deficits. HEENT: Face is symmetric. Pupils are equal and reactive. Extraocular movements are intact. NECK: Supple. No JVD. No thyromegaly. No submental, submandibular, pre- /postauricular, occipital or supraclavicular lymphadenopathy. CHEST: Normal chest expansion. No Telemetry. LUNGS: Absence of any rales, rhonchi or any wheezing. CARDIOVASCULAR: Regular. S1 and S2 normal. No appreciable rubs, murmurs or gallops. ABDOMEN: Soft, nontender, and nondistended. There is no rebound, voluntary guarding, or rigidity. : Deferred. No Rabago. EXTREMITIES: Non-edematous and not cyanotic. No clubbing. Good capillary refill. SKIN: No skin breakdown. Vital Signs (last 8hr) Date Time Temp Pulse Resp B/P (MAP) Pulse Ox O2 Delivery O2 Flow Rate FiO2 11/26/24 11:35 77 18 N/A Room Air 21 11/26/24 11:26 97.9 74 19 117/59 94 Room Air 11/26/24 08:08 60 19 129/58 98 Room Air 11/26/24 07:45 57 26 11/26/24 07:43 57 26 28 LABS: Laboratory: Test 11/26/24 03:49 11/25/24 11:54 11/25/24 04:10 11/24/24 20:31 Range/Units White Blood Count 19.4 #H 4.8-10.8 K/uL Red Blood Count 4.48 L 4.50-6.20 MIL/uL Hemoglobin 12.8 L 14.0-18.0 g/dL Hematocrit 38.7 L 42-54 % Mean Corpuscular Volume 86.4 79-99 fL Mean Corpuscular Hemoglobin 28.6 27.0-33.0 pg Mean Corpuscular Hemoglobin Concent 33.1 32.0-36.0 g/dL Red Cell Distribution Width 12.1 11.0-15.5 % Platelet Count 203 130-400 K/uL Mean Platelet Volume 10.2 7.5-10.5 fL Nucleated Red Blood Cells 0.0 0.0-0.19 % Sodium Level 134 L 136-145 mmol/L Potassium Level 4.1 3.5-5.1 mmol/L Chloride Level 100 L 101-111 mmol/L Carbon Dioxide Level 28 21-32 mmol/L Blood Urea Nitrogen 10 7-18 mg/dL Creatinine 0.9 0.5-1.3 mg/dL Glomerular Filtration Rate Calc 119 >90 mL/min Random Glucose 199 #H 70-105 mg/dL Total Calcium 8.9 8.5-10.1 mg/dL Thyroid Stimulating Hormone (TSH) 0.48 0.36-3.74 uIU/mL Blood Gas Specimen Type Arterial Arterial Blood pH 7.403 7.350-7.450 Arterial Blood Partial Pressure CO2 39 35-48 mmHg Arterial Blood Partial Pressure O2 63.9 L 83.0-108.0 mmHg Arterial Blood HCO3 24.0 21.0-28.0 mmol/L Arterial Blood Oxygen Saturation 92.5 L 94.0-98.0 % Arterial Blood Base Excess -0.5 -2.0-3.0 mmol/L Blood Gas Temperature 37.0 35.5-37.0 CELSIUS Blood Gas Vent Mode RA ROOM AIR FiO2 21.0 % Blood Gas Specimen Comment RR DANIELLA Immature Granulocyte % (Auto) 0.4 0-1 % Neutrophils (%) (Auto) 78.1 H 40.0-77.0 % Lymphocytes (%) (Auto) 13.3 L 21.0-51.0 % Monocytes (%) (Auto) 6.8 3.0-13.0 % Eosinophils (%) (Auto) 1.2 0.0-8.0 % Basophils (%) (Auto) 0.2 0.0-5.0 % Neutrophils # (Auto) 10.0 H 1.8-7.7 K/uL Lymphocytes # (Auto) 1.7 1.0-4.8 K/uL Monocytes # (Auto) 0.9 0.1-1.0 K/uL Eosinophils # (Auto) 0.15 0.00-0.70 K/uL Basophils # (Auto) 0.02 0.00-0.20 K/uL Absolute Immature Granulocyte (auto 0.05 0-1 K/uL Magnesium Level 1.90 1.80-2.40 mg/dL Total Bilirubin 0.8 0.2-1.0 mg/dL Aspartate Amino Transf (AST/SGOT) 13 10-37 U/L Alanine Aminotransferase (ALT/SGPT) 33 12-78 U/L Alkaline Phosphatase 86 50-136 U/L Total Protein 6.7 6.0-8.3 g/dL Albumin 3.3 L 3.5-5.0 g/dL Erythrocyte Sedimentation Rate 14 0-15 MM/HR C-Reactive Protein, Quantitative 52.90 H 0.5-3.0 mg/L Procalcitonin < 0.05 L 0.05-0.5 ng/mL Test 11/24/24 18:36 11/24/24 18:21 Range/Units Influenza Type A Antigen Negative For Type A NEGATIVE Influenza Type B Antigen Negative For Type B NEGATIVE SARS-CoV-2, RNA, NAAT NEGATIVE SARS CoV-2 NEGATIVE Prothrombin Time 11.4 9.6-11.6 SEC Prothromb Time International Ratio 1.08 0.85-1.15 Activated Partial Thromboplast Time 30.2 26.3-35.5 SEC Direct Bilirubin 0.2 0.0-0.3 mg/dL Current Medications Medications (Trade) Dose Ordered Sig/Janes Route PRN Reason Start Time Stop Time Status Last Admin Dose Admin Acetaminophen (TYLenol 325MG TAB) 650 mg Q6H PRN PO MILD PAIN (1-3) 11/24/24 18:00 12/24/24 17:59 11/24/24 22:26 650 MG Albuterol (DUOneb) 1 udvial Q6H PRN IH SHORTNESS OF BREATH 11/24/24 18:00 12/24/24 17:59 11/24/24 23:33 1 UDVIAL Budesonide (Pulmicort 0.5 Mg/2ml) 0.5 mg BIDRESP IH 11/24/24 18:00 12/24/24 17:59 11/26/24 07:45 0.5 MG Enoxaparin Sodium (Lovenox) 40 mg DAILY SQ 11/25/24 13:00 12/25/24 12:59 11/26/24 08:19 40 MG Hydromorphone HCl (DiLAUDid 1MG INJ) 1 mg Q3H3 PRN IVP SEVERE PAIN (7-10) 11/25/24 12:00 11/25/24 20:18 DC Hydromorphone HCl (DiLAUDid 1MG INJ) 1 mg Q3H3 PRN IVP SEVERE PAIN (7-10) 11/25/24 20:30 11/30/24 20:29 Ketorolac Tromethamine (toRADol) 30 mg Q6H IVP 11/25/24 12:00 11/30/24 11:59 11/25/24 23:18 30 MG Lactated Ringer's 1,000 ml @ 75 mls/hr [id number] IV 11/24/24 18:00 11/25/24 20:37 DC 11/25/24 08:22 75 MLS/HR Morphine Sulfate (morPHINE 2MG SYG) 2 mg Q6H PRN IVP SEVERE PAIN (7-10) 11/24/24 18:00 11/25/24 11:45 DC 11/25/24 08:19 2 MG Ondansetron HCl (zoFRAN 4MG INJ) 4 mg Q6H PRN IVP NAUSEA/VOMITING 11/24/24 18:00 12/24/24 17:59 Oxycodone/ Acetaminophen (perCOCET) 1 tab Q4H PRN PO MODERATE PAIN (4-6) 11/25/24 20:30 12/02/24 20:29 11/26/24 08:42 1 TAB Pantoprazole Sodium (PROTonix 40MG INJ) 40 mg Q24H IVP 11/24/24 18:00 12/24/24 17:59 11/24/24 18:21 40 MG Piperacillin Sod/ Tazobactam Sod (Zosyn 3.375gm+NS 50ml) 3.375 gm Q8H IVPB 11/25/24 00:30 12/05/24 00:29 11/26/24 08:19 3.375 GM Vancomycin HCl 250 ml @ 125 mls/hr Q8H IV 11/26/24 20:00 12/06/24 19:59 Vancomycin HCl (Vancomycin Protocol) 1 each AD IV 11/26/24 10:30 12/10/24 10:29 Vancomycin HCl (Vancomycin 1g/ 250ml Kit) 1 gm Q12H IV 11/26/24 10:30 11/26/24 10:17 DC DIAGNOSTICS / RADIOLOGY: [ ] ASSESSMENT: Acute respiratory failure with hypoxia. Requiring oxygen supplemental POA sepsis secondary to perirectal abscess POA status post I&D POA Anorectal mass, POA Rectal tenesmus, POA Leukocytosis, POA Morbid obesity, POA Hepatic steatosis, POA Untreated obstructive sleep apnea, POA History of gastritis, POA History of seasonal allergies, POA PLAN: Admit: Surgical floor condition: Fair Status: Full code IVF: [facility] general surgeon pst specialist Antibiotics: Zosyn 3.375 g IV every8 hours and vancomycin1 g every12 hours. Status post I&D perirectal abscess we will follow postoperative recommendations per surgeon. We will follow pst specialist on dressing changes family will be taught. Labs cbc, cmp, mag+ Replace electrolytes as needed as per protocol to keep potassium above 4.0 magnesium 2.0. Continues with CPAP overnight. Continue bronchodilators. And Pulmicort inhaler. PRN: MEDICATIONS Tylenol 650 mg po every 4 hrs for fever zofran 4 mg IV every 6 hrs for n/v bowel regiment: lactulose 20 gm PO BID PRN constipation Pain management: Toradol IV q6 hrs as needed. Supportive measures: DVT ppx, GI ppx all questions answered case management: Supervising MD: Dr. Trang Dumont c/d This document was generated in part using voice recognition software, occasional wrong word or sound alike substitutions may have occurred due to the inherent limitations of voice recognition software. Read the chart carefully and recognize using context, where the substitutions have occurred. Although every effort was made to edit the content, director student union and typing errors may occur ATTESTATION BY PHYSICIAN I have seen and examined the patient. I reviewed the documentation, medical decision making, and treatment plan as noted by the mid-level provider above. I agree with the findings and plan of care. KENNA ROCK MD, ELIZABETH NP Nov 26, 2024 12:07
--- NOTE | 2024-11-26 13:11 | CONS ---
CONSULT NOTE: This is a 29-year-old male with underlying history of morbid obesity, gastritis who presented to the ER for further evaluation of tenesmus, rectal pain. Symptoms have been ongoing since the past six days, patient had presented to the ER yesterday with similar complaints and had a CT abdomen done without contrast. Diagnosis of constipation was made and patient was given lactulose for further management. Patient continues to have significant pain especially when lying s upine or using the restroom. Denies any hematochezia. He has been having subjective malaise and chills at home. Patient does report having family history of anal fissures in his brothers. Patient denies any previous history of malignancy. He does have symptoms of sleep apnea and is supposed to have outpatient sleep study done. On presentation to the hospital, patient was noted to have T-max of 99.5 F, heart rate of 91, blood pressure of 145/84. [place] [address], hemoglobin of 13.5, platelet count of 137247. BMP remarkable for sodium of 136, potassium 4.0, creatinine of 0.8 and normal liver enzymes. A CT abdomen pelvis with IV contrast was performed which showed findings of 5.1 cm soft tissue mass noted near the anus. Consultation has been requested with General surgery. We will have Medical Oncology see this patient as well. Patient will receive IV fluids and broad- spectrum antibiotics with IV Zosyn. Patient will be placed on bowel rest. We will have pulmonology see this patient given underlying untreated obstructive sleep apnea. Patient will be started on CPAP therapy while inpatient. REVIEW OF SYSTEMS CONSTITUTIONAL: Denies fevers, chills, or night sweats. No unintentional weight loss reported. NEUROLOGICAL: Denies headache, amaurosis fugax, motor weakness, sensory defic it, vertigo/spinning sensation, gait abnormalities, or tremors. ENT: No hearing loss, otalgia, otorrhea, rhinitis, rhinorrhea, hoarseness, or sore throat. CARDIOVASCULAR: Denies any exertional angina, dyspnea on exertion, orthopnea, paroxysmal nocturnal dyspnea, palpitations, life-threatening arrhythmias, claudication. PULMONARY: Denies any shortness of breath, cough, phlegm/sputum, hemoptysis, pleuritic chest pain. SLEEP: Denies morning headaches, daytime somnolence or napping. Denies difficulty falling asleep, staying asleep, waking from sleep. Denies knowledge of snoring. GASTROINTESTINAL: Tenesmus, rectal pain GENITOURINARY: Denies frequency, urgency, nocturia, hematuria or incontinence (Storage/Irritative symptoms.) Low urinary stream, straining to void, urinary intermittency or hesitancy, splitting of the voiding stream, terminal dribbling. ENDOCRINOLOGIC: Denies polyuria, polydipsia, polyphagia or heat/cold intolerances. HEMATOLOGIC: Denies thrombophilia/previous clots, or coagulopathy/bleeding disorders. ONCOLOGIC: Denies personal history of malignancy. DERMATOLOGIC: Denies rashes or pruritus. PSYCHIATRIC: Denies any suicidal or homicidal ideation. Denies hallucinations. PAST MEDICAL HISTORY: Morbid obesity, history of asthma, gastritis, seasonal allergies, history of fungal pneumonia in his childhood PAST SURGICAL HISTORY: History of tonsillectomy PAST SOCIAL HISTORY: Denies active smoking alcohol consumption FAMILY HISTORY: Prostate cancer in father, multiple brothers with history of constipation and anal fissures and perirectal infection Home medications: Cetirizine and Nexium Allergies: Patient denies known drug allergies Coded Allergies: No Known Drug Allergies (Unverified Allergy, Unknown, 01/08/17) PHYSICAL EXAM GENERAL APPEARANCE: The patient is awake, alert, and oriented, in no acute cardiopulmonary distress. Patient is morbidly obese NEUROLOGICAL: Cranial nerves II-XII grossly intact. Motor is 5/5 in bilateral upper and lower extremities proximal to distal. No sensory deficits. HEENT: Face is symmetric. Pupils are equal and reactive. Extraocular movements are intact. NECK: Supple. No JVD. No thyromegaly. No submental, submandibular, pre- /postauricular, occipital or supraclavicular lymphadenopathy. CHEST: Normal chest expansion. No Telemetry. LUNGS: Absence of any rales, rhonchi or any wheezing. CARDIOVASCULAR: Regular. S1 and S2 normal. No appreciable rubs, murmurs or gallops. ABDOMEN: Soft, nontender, and nondistended. There is no rebound, voluntary guarding, or rigidity. : Deferred. No Rabago. EXTREMITIES: Non-edematous and not cyanotic. No clubbing. Good capillary refill. SKIN: No skin breakdown. Assessment 1. 5.1 cm enhancing soft tissue mass near the anus Without any rectal or perirectal abnormality 2. Hepatitis C cirrhosis 3. Morbidly obese LAB RESULTS 11/26/24 03:49: White Blood Count 19.4#H, Red Blood Count 4.48L, Hemoglobin 12.8L, Hematocrit 38.7L, Mean Corpuscular Volume 86.4, Mean Corpuscular Hemoglobin 28.6, Mean Corpuscular Hemoglobin Concent 33.1, Red Cell Distribution Width 12.1, Platelet Count 203, Mean Platelet Volume 10.2, Nucleated Red Blood Cells 0.0, Sodium Level 134L, Potassium Level 4.1, Chloride Level 100L, Carbon Dioxide Level 28, Blood Urea Nitrogen 10, Creatinine 0.9, Glomerular Filtration Rate Calc 119, Ran dom Glucose 199#H, Total Calcium 8.9, Thyroid Stimulating Hormone (TSH) 0.48 11/25/24 11:54: Blood Gas Specimen Type Arterial, Arterial Blood pH 7.403, Arterial Blood Partial Pressure CO2 39, Arterial Blood Partial Pressure O2 63.9L, Arterial Blood HCO3 24.0, Arterial Blood Oxygen Saturation 92.5L, Arterial Blood Base Excess -0.5, Blood Gas Temperature 37.0, Blood Gas Vent Mode RA, FiO2 21.0, Blood Gas Specimen Comment RR DANIELLA 11/25/24 04:10: Immature Granulocyte % (Auto) 0.4, Neutrophils (%) (Auto) 78.1H, Lymphocytes (%) (Auto) 13.3L, Monocytes (%) (Auto) 6.8, Eosinophils (%) (Auto) 1.2, Basophils (%) (Auto) 0.2, Neutrophils # (Auto) 10.0H, Lymphocytes # (Auto) 1.7, Monocytes # (Auto) 0.9, Eosinophils # (Auto) 0.15, Basophils # (Auto) 0.02, Absolute Immature Granulocyte (auto 0.05, Magnesium Level 1.90, Total Bilirubin 0.8, Aspartate Amino Transf (AST/SGOT) 13, Alanine Aminotransferase (ALT/SGPT) 33, Alkaline Phosphatase 86, Total Protein 6.7, Albumin 3.3L 11/24/24 20:31: Erythrocyte Sedimentation Rate 14, C-Reactive Protein, Quantitative 52.90H, Procalcitonin < 0.05L 11/24/24 18:36: Influenza Type A Antigen Negative For Type A, Influenza Type B Antigen Negative For Type B, SARS-CoV-2, RNA, NAAT NEGATIVE SARS CoV-2 11/24/24 18:21: Prothrombin Time 11.4, Prothromb Time International Ratio 1.08, Activated Partial Thromboplast Time 30.2, Direct Bilirubin 0.2 Laboratory Tests Test 11/26/24 03:49 White Blood Count 19.4 K/uL (4.8-10.8) #H Red Blood Count 4.48 MIL/uL (4.50-6.20) L Hemoglobin 12.8 g/dL (14.0-18.0) L Hematocrit 38.7 % (42-54) L Mean Corpuscular Volume 86.4 fL (79-99) Mean Corpuscular Hemoglobin 28.6 pg (27.0-33.0) Mean Corpuscular Hemoglobin Concent 33.1 g/dL (32.0-36.0) Red Cell Distribution Width 12.1 % (11.0-15.5) Platelet Count 203 K/uL (130-400) Mean Platelet Volume 10.2 fL (7.5-10.5) Nucleated Red Blood Cells 0.0 % (0.0-0.19) Sodium Level 134 mmol/L (136-145) L Potassium Level 4.1 mmol/L (3.5-5.1) Chloride Level 100 mmol/L (101-111) L Carbon Dioxide Level 28 mmol/L (21-32) Blood Urea Nitrogen 10 mg/dL (7-18) Creatinine 0.9 mg/dL (0.5-1.3) Glomerular Filtration Rate Calc 119 mL/min (>90) Random Glucose 199 mg/dL (70-105) #H Total Calcium 8.9 mg/dL (8.5-10.1) Thyroid Stimulating Hormone (TSH) 0.48 uIU/mL (0.36-3.74) 4. Leukocytosis Plan 1. The patient already have surgery done for the anal mass. We will follow-up with the result of the pathology. 2. If this is a benign lesion this patient should not follow-up with me. But if the lesion is malignant then this patient could follow-up with me. Will review 3. Continue care as per surgery for now. 4. It seems this patient stable he could be discharged from my point of view to follow-up with me in 3 weeks. I have long discussion with the patient and family member. I explained the plan of care for them. DANIELLE STEWART MD Nov 26, 2024 13:11
[2024-11-26] MEDS: VANCOMYCIN 2GM/500 ML BAG 500 ML IV ONE (14:04)
--- NOTE | 2024-11-26 14:08 | NUR ---
Discharge Planning: Referral sent to [facility] for wound care. Still pending culture results.
--- NOTE | 2024-11-26 16:23 | NUR ---
DCP Patient states lives with Dee Dee Chowdhury, Spouse [phone] in a house with a walk in shower. 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 States able to complete ADL's on his own. Denies medical devices, Denies home health services, home care provider or dialysis. PCP - Tim Stock [facility]. Upon discharge, states Dee Dee Chowdhury, Spouse [phone] and assist with care. He states he will require wound care; referred to surgeon. MD MENDIOLA -- status post I & D of perineal abscess with Dr. Robb; pending wound care consult with Dr. Turner. Addendum: 11/26/24 at 1628 by SANDRA SQUIRES RN CM Amended: Links added.
--- NOTE | 2024-11-26 16:28 | PN ---
[facility] PROGRESS NOTE Date Patient Seen: Nov 26, 2024 Time of Visit: 16:24 Supervising Physician: CAMERON STEELE Consulting Physician: Dr Murillo Outpatient Specialists: [ ] Inpatient Consults: PROBLEM LIST: Obstructive sleep apnea, POA Obesity hypoventilation syndrome, POA Morbid obesity, BMI of 58.4 Rectal mass, POA Hepatic steatosis, POA Leukocytosis, POA History of chronic bronchitis, asthma PLAN: Antibiotic management per primary FOLLOW GENERAL SURGERY RECS CPAP at night - outpatient sleep study once discharged DuoNeb q.6 as needed for shortness of breaths Keep head of bed above 30 Incentive spirometry Keep O2 saturation above 90% Rest of plan care of primary INTERVAL HISTORY: Patient was seen and examined by me , laying in bed , continues on IV antibiotics. He is s/p Rectal surgery yesterday- no postop complications Was able to tolerate - CPAP overnight CXR reviewed . 6 min walk test prior to discharge continue IS REVIEW OF SYSTEMS: 12 point ROS reviewed with patient. Pertinent positives mentioned above. Otherwise negative. PHYSICAL EXAM: GENERAL: alert, weak, awake oriented x 3 HEENT: EOMI, Sclera non icteric, moist mucosa NECK: Supple, no JVD, trachea midline LUNGS: Clear breath sounds bilaterally. No wheezes HEART: Regular rate and rhythm. Normal S1 and S2, without murmurs ABD: Large body habitus EXT: No clubbing cyanosis or edema NEURO: Alert and oriented to person, follows commands Vital Signs (last 8hr) Date Time Temp Pulse Resp B/P (MAP) Pulse Ox O2 Delivery O2 Flow Rate FiO2 11/26/24 15:20 98.4 84 18 116/62 96 Room Air 11/26/24 11:35 77 18 N/A Room Air 21 11/26/24 11:26 97.9 74 19 117/59 94 Room Air LABS: Hematology Labs: Test 11/26/24 03:49 11/25/24 04:10 11/24/24 20:31 Range/Units White Blood Count 19.4 #H 4.8-10.8 K/uL Red Blood Count 4.48 L 4.50-6.20 MIL/uL Hemoglobin 12.8 L 14.0-18.0 g/dL Hematocrit 38.7 L 42-54 % Mean Corpuscular Volume 86.4 79-99 fL Mean Corpuscular Hemoglobin 28.6 27.0-33.0 pg Mean Corpuscular Hemoglobin Concent 33.1 32.0-36.0 g/dL Red Cell Distribution Width 12.1 11.0-15.5 % Platelet Count 203 130-400 K/uL Mean Platelet Volume 10.2 7.5-10.5 fL Nucleated Red Blood Cells 0.0 0.0-0.19 % Immature Granulocyte % (Auto) 0.4 0-1 % Neutrophils (%) (Auto) 78.1 H 40.0-77.0 % Lymphocytes (%) (Auto) 13.3 L 21.0-51.0 % Monocytes (%) (Auto) 6.8 3.0-13.0 % Eosinophils (%) (Auto) 1.2 0.0-8.0 % Basophils (%) (Auto) 0.2 0.0-5.0 % Neutrophils # (Auto) 10.0 H 1.8-7.7 K/uL Lymphocytes # (Auto) 1.7 1.0-4.8 K/uL Monocytes # (Auto) 0.9 0.1-1.0 K/uL Eosinophils # (Auto) 0.15 0.00-0.70 K/uL Basophils # (Auto) 0.02 0.00-0.20 K/uL Absolute Immature Granulocyte (auto 0.05 0-1 K/uL Erythrocyte Sedimentation Rate 14 0-15 MM/HR Chemistry Labs: Test 11/26/24 03:49 11/25/24 04:10 11/24/24 20:31 11/24/24 18:21 Range/Units Sodium Level 134 L 136-145 mmol/L Potassium Level 4.1 3.5-5.1 mmol/L Chloride Level 100 L 101-111 mmol/L Carbon Dioxide Level 28 21-32 mmol/L Blood Urea Nitrogen 10 7-18 mg/dL Creatinine 0.9 0.5-1.3 mg/dL Glomerular Filtration Rate Calc 119 >90 mL/min Random Glucose 199 #H 70-105 mg/dL Total Calcium 8.9 8.5-10.1 mg/dL Thyroid Stimulating Hormone (TSH) 0.48 0.36-3.74 uIU/mL Magnesium Level 1.90 1.80-2.40 mg/dL Total Bilirubin 0.8 0.2-1.0 mg/dL Aspartate Amino Transf (AST/SGOT) 13 10-37 U/L Alanine Aminotransferase (ALT/SGPT) 33 12-78 U/L Alkaline Phosphatase 86 50-136 U/L Total Protein 6.7 6.0-8.3 g/dL Albumin 3.3 L 3.5-5.0 g/dL C-Reactive Protein, Quantitative 52.90 H 0.5-3.0 mg/L Procalcitonin < 0.05 L 0.05-0.5 ng/mL Direct Bilirubin 0.2 0.0-0.3 mg/dL Coagulation Labs: Test 11/24/24 18:21 Range/Units Prothrombin Time 11.4 9.6-11.6 SEC Prothromb Time International Ratio 1.08 0.85-1.15 Activated Partial Thromboplast Time 30.2 26.3-35.5 SEC DIAGNOSTICS / RADIOLOGY RESULTS: [ ] PLAN NEURO: Minimize central acting medications as possible. Maintain fall precautions, adequate lighting during the day PULMONARY: Supplemental 02 as needed. Maintain aspiration precautions at all times CARDIOVASCULAR: Follow hemodynamics. Vital signs per facility protocol GI & NUTRITION: Continue with nutritional support. Continue stool softeners and laxatives as needed. KIDNEYS & ELECTROLYTES: Strict monitoring of intake, output and overall fluid balance. Avoid nephrotoxic medications to the extent possible. Medications to be dosed according to renal function. Monitor electrolytes and replace as needed ENDOCRINE: Maintain blood glucose between 100-180 at all times. Hypoglycemia protocol in place INFECTIOUS DISEASE: Trend temperature, WBC and procalcitonin level Follow cultures, deescalate antibiotics as soon as possible. Panculture if new onset fever ONCOLOGY/HEMATOLOGY/COAGULATION: Monitor for s/s of bleeding Monitor hemoglobin, coagulation studies as needed SKIN: Pressure ulcer prevention per facility protocol Specialty mattress ORTHO/REHAB: Continue PT/OT Prophylaxis: Continue GI and DVT prophylaxis Code Status: Full Resuscitation Disposition: TBD Other: Total patient care time exceeds 35 minutes excluding all procedures. JOEL HERNANDEZ Nov 26, 2024 16:27
[2024-11-26] MEDS: hydroMORPHone 1 MG INJ IVP PRN (16:46)
--- NOTE | 2024-11-26 17:24 | CONS ---
CONSULTATION NOTE Date of Service: Nov 26, 2024 Reason for Consultation: [ Open surgical wound in the perineal area ] Requesting Physician: [Dr. Oswald ] HISTORY OF PRESENT ILLNESS: [Date of service: 11/24/2024, patient was seen in ER room 14 This is a 29-year-old male with underlying history of morbid obesity, gastritis who presented to the ER for further evaluation of tenesmus, rectal pain. Symptoms have been ongoing since the past six days, patient had presented to the ER yesterday with similar complaints and had a CT abdomen done without contrast. Diagnosis of constipation was made and patient was given lactulose for further management. Patient continues to have significant pain especially when lying supine or using the restroom. Denies any hematochezia. He has been having subjective malaise and chills at home. Patient does report having family history of anal fissures in his brothers. Patient denies any previous history of malignancy. He does have symptoms of sleep apnea and is supposed to have outpatient sleep study done. On presentation to the hospital, patient was noted to have T-max of 99.5 F, heart rate of 91, blood pressure of 145/84. Labs [place] [address], hemoglobin of 13.5, platelet count of 450604. BMP remarkable for sodium of 136, potassium 4.0, creatinine of 0.8 and normal liver enzymes. A CT abdomen pelvis with IV contrast was performed which showed findings of 5.1 cm soft tissue mass noted near the anus. Consultation has been requested with General surgery. We will have Medical Oncology see this patient as well. Patient will receive IV fluids and broad- spectrum antibiotics with IV Zosyn. Patient will be placed on bowel rest. We will have pulmonology see this patient given underlying untreated obstructive sleep apnea. Patient will be started on CPAP therapy while inpatient. At the bedside during my consultation 11/26/2024. 29-year-old male seen at the bedside for initial wound care evaluation and management of an open surgical wound on the perineal area status post surgical I and D due to an abscess. Current treatment is iodoform p acking, antibiotic therapy and pain management. Primary nurse and family at the bedside during my visitation. REVIEW OF SYSTEMS CONSTITUTIONAL: Denies fever, chills, or fatigue. HEAD/FACE: No signs of trauma. EENT: Denies eye pain, blurred vision, double vision, or light sensitivity. RESPIRATORY: Denies shortness of breath, cough, wheezing CARDIOVASCULAR: Denies chest pain, palpitation, syncope GASTROINTESTINAL/ABDOMINAL: Denies abdominal pain, constipation, diarrhea, nausea or vomiting GENITOURINARY: Denies dysuria or hematuria. MUSCULOSKELETAL: Denies joint pain, tenderness, or trauma. INTEGUMENTARY: Open surgical wound on the buttock area NEUROLOGICAL/PSYCH: Denies anxiety, depression, heat or cold intolerance. PAST MEDICAL HISTORY: Morbid obesity, history of asthma, gastritis, seasonal allergies, history of fungal pneumonia in his childhood PAST SURGICAL HISTORY: History of tonsillectomy PAST SOCIAL HISTORY: Denies active smoking alcohol consumption FAMILY HISTORY: Prostate cancer in father, multiple brothers with history of constipation and anal fissures and perirectal infection Home medications: Cetirizine and Nexium Coded Allergies: No Known Drug Allergies (Unverified Allergy, Unknown, 01/08/17) PHYSICAL EXAM EYES: Anicteric. Pupils equal and reactive. HENT: No oral thrush seen, moist Oral mucosa NECK: Supple, no JVD or thyromegaly. LUNGS: Good air entry. No rales, no rhonchi. CARDIOVASCULAR: S1, S2 regular. No murmur heard. ABDOMEN: Soft, non tender, bowel sounds present, no organomegaly CENTRAL NERVOUS SYSTEM: Awake, alert, oriented x 3. No focal deficits. SKIN: Open surgical wound LYMPHATICS: No peripheral lymphadenopathy MUSCULOSKELETAL: No joint swelling, erythema or tenderness. EXTREMITIES: No cyanosis or clubbing BACK: No deformity, no pressure ulcer. GENITOURINARY: No dysuria or hematuria Vital Sign (Last 24 Hours) 11/26/24 11/26/24 11/26/24 08:00 11:35 15:20 Temp 98.4 Pulse 84 Resp 18 B/P (MAP) 116/62 Pulse Ox 96 O2 Delivery Room Air O2 Flow Rate 0 FiO2 21 LABS: Laboratory: Test 11/26/24 03:49 11/25/24 11:54 11/25/24 04:10 11/24/24 20:31 Range/Units White Blood Count 19.4 #H 4.8-10.8 K/uL Red Blood Count 4.48 L 4.50-6.20 MIL/uL Hemoglobin 12.8 L 14.0-18.0 g/dL Hematocrit 38.7 L 42-54 % Mean Corpuscular Volume 86.4 79-99 fL Mean Corpuscular Hemoglobin 28.6 27.0-33.0 pg Mean Corpuscular Hemoglobin Concent 33.1 32.0-36.0 g/dL Red Cell Distribution Width 12.1 11.0-15.5 % Platelet Count 203 130-400 K/uL Mean Platelet Volume 10.2 7.5-10.5 fL Nucleated Red Blood Cells 0.0 0.0-0.19 % Sodium Level 134 L 136-145 mmol/L Potassium Level 4.1 3.5-5.1 mmol/L Chloride Level 100 L 101-111 mmol/L Carbon Dioxide Level 28 21-32 mmol/L Blood Urea Nitrogen 10 7-18 mg/dL Creatinine 0.9 0.5-1.3 mg/dL Glomerular Filtration Rate Calc 119 >90 mL/min Random Glucose 199 #H 70-105 mg/dL Total Calcium 8.9 8.5-10.1 mg/dL Thyroid Stimulating Hormone (TSH) 0.48 0.36-3.74 uIU/mL Blood Gas Specimen Type Arterial Arterial Blood pH 7.403 7.350-7.450 Arterial Blood Partial Pressure CO2 39 35-48 mmHg Arterial Blood Partial Pressure O2 63.9 L 83.0-108.0 mmHg Arterial Blood HCO3 24.0 21.0-28.0 mmol/L Arterial Blood Oxygen Saturation 92.5 L 94.0-98.0 % Arterial Blood Base Excess -0.5 -2.0-3.0 mmol/L Blood Gas Temperature 37.0 35.5-37.0 CELSIUS Blood Gas Vent Mode RA ROOM AIR FiO2 21.0 % Blood Gas Specimen Comment RR DANIELLA Immature Granulocyte % (Auto) 0.4 0-1 % Neutrophils (%) (Auto) 78.1 H 40.0-77.0 % Lymphocytes (%) (Auto) 13.3 L 21.0-51.0 % Monocytes (%) (Auto) 6.8 3.0-13.0 % Eosinophils (%) (Auto) 1.2 0.0-8.0 % Basophils (%) (Auto) 0.2 0.0-5.0 % Neutrophils # (Auto) 10.0 H 1.8-7.7 K/uL Lymphocytes # (Auto) 1.7 1.0-4.8 K/uL Monocytes # (Auto) 0.9 0.1-1.0 K/uL Eosinophils # (Auto) 0.15 0.00-0.70 K/uL Basophils # (Auto) 0.02 0.00-0.20 K/uL Absolute Immature Granulocyte (auto 0.05 0-1 K/uL Magnesium Level 1.90 1.80-2.40 mg/dL Total Bilirubin 0.8 0.2-1.0 mg/dL Aspartate Amino Transf (AST/SGOT) 13 10-37 U/L Alanine Aminotransferase (ALT/SGPT) 33 12-78 U/L Alkaline Phosphatase 86 50-136 U/L Total Protein 6.7 6.0-8.3 g/dL Albumin 3.3 L 3.5-5.0 g/dL Erythrocyte Sedimentation Rate 14 0-15 MM/HR C-Reactive Protein, Quantitative 52.90 H 0.5-3.0 mg/L Procalcitonin < 0.05 L 0.05-0.5 ng/mL Test 11/24/24 18:36 11/24/24 18:21 Range/Units Influenza Type A Antigen Negative For Type A NEGATIVE Influenza Type B Antigen Negative For Type B NEGATIVE SARS-CoV-2, RNA, NAAT NEGATIVE SARS CoV-2 NEGATIVE Prothrombin Time 11.4 9.6-11.6 SEC Prothromb Time International Ratio 1.08 0.85-1.15 Activated Partial Thromboplast Time 30.2 26.3-35.5 SEC Direct Bilirubin 0.2 0.0-0.3 mg/dL DIAGNOSTICS / RADIOLOGY: [ ] Wound Care assessment: Open surgical wound on the perineal area PROBLEM LIST : Medical Problems: (1) Mass in rectum ICD Codes: K62.89 - Other specified diseases of anus and rectum PLAN: Continue IV antibiotic treatment . Comorbidities as per primary team. Continue wound with Iodoform packing daily. Pain management . Further management per hospital course. Thank you for the consultation allowing me to participate in the care of your patient. From the wound care standpoint patient can be discharged home with oral antibiotic. Family was instructed how to do the wound care. [facility] discharge. JEOVANNY SONG MD Nov 26, 2024 17:24
[2024-11-26] MEDS: LORazepam 2 MG/ML 1 ML VIAL IVP SCH (19:30)
[2024-11-26] MEDS: VANCOMYCIN 1.5 GM/250 ML BAG 250 ML IV SCH (20:00)
--- NOTE | 2024-11-26 20:27 | PN ---
GENERAL SURGERY PROGRESS NOTE DATE OF SERVICE: Nov 26, 2024 TIME OF SERVICE: 20:27 Preop pain is gone Feels better PROBLEM LISTS: [ ] INTERVAL HISTORY: [ ] PHYSICAL EXAMINATION: GENERAL: [Patient is lying comfortably in bed, not in any obvious distress.] HEAD: [Normal with no signs of head trauma.] EYES: [Not pale not jaundiced afebrile to touch.] ENT: [ Normal.] NECK: [Supple,no tenderness,no lymphadenopathy,no masses,no thyromegaly ,no bruits, no JVD.] LUNGS: [Clear breath sounds bilaterally. No wheezes, rales, or rhonchi.] HEART: [Regular rate and rhythm. Normal S1 and S2, without murmurs, rub or gallop.] VASC: [No edema. Peripheral pulses normal and equal in all extremities.] ABD: Benign AK dressing in place : [Normal, no suprapubic tenderness.] LYMPH: [No lymphadenopathy noted.] EXT: [ Warm soft, non tender.] SKIN: [ No rashes or lesions.] NEURO: [ Awake Alert and oriented x3.] LABORATORY: [ ] Hematology Labs: Test 11/26/24 03:49 11/25/24 04:10 11/24/24 20:31 Range/Units White Blood Count 19.4 #H 4.8-10.8 K/uL Red Blood Count 4.48 L 4.50-6.20 MIL/uL Hemoglobin 12.8 L 14.0-18.0 g/dL Hematocrit 38.7 L 42-54 % Mean Corpuscular Volume 86.4 79-99 fL Mean Corpuscular Hemoglobin 28.6 27.0-33.0 pg Mean Corpuscular Hemoglobin Concent 33.1 32.0-36.0 g/dL Red Cell Distribution Width 12.1 11.0-15.5 % Platelet Count 203 130-400 K/uL Mean Platelet Volume 10.2 7.5-10.5 fL Nucleated Red Blood Cells 0.0 0.0-0.19 % Immature Granulocyte % (Auto) 0.4 0-1 % Neutrophils (%) (Auto) 78.1 H 40.0-77.0 % Lymphocytes (%) (Auto) 13.3 L 21.0-51.0 % Monocytes (%) (Auto) 6.8 3.0-13.0 % Eosinophils (%) (Auto) 1.2 0.0-8.0 % Basophils (%) (Auto) 0.2 0.0-5.0 % Neutrophils # (Auto) 10.0 H 1.8-7.7 K/uL Lymphocytes # (Auto) 1.7 1.0-4.8 K/uL Monocytes # (Auto) 0.9 0.1-1.0 K/uL Eosinophils # (Auto) 0.15 0.00-0.70 K/uL Basophils # (Auto) 0.02 0.00-0.20 K/uL Absolute Immature Granulocyte (auto 0.05 0-1 K/uL Erythrocyte Sedimentation Rate 14 0-15 MM/HR Chemistry Labs: Test 11/26/24 03:49 11/25/24 04:10 11/24/24 20:31 Range/Units Sodium Level 134 L 136-145 mmol/L Potassium Level 4.1 3.5-5.1 mmol/L Chloride Level 100 L 101-111 mmol/L Carbon Dioxide Level 28 21-32 mmol/L Blood Urea Nitrogen 10 7-18 mg/dL Creatinine 0.9 0.5-1.3 mg/dL Glomerular Filtration Rate Calc 119 >90 mL/min Random Glucose 199 #H 70-105 mg/dL Total Calcium 8.9 8.5-10.1 mg/dL Thyroid Stimulating Hormone (TSH) 0.48 0.36-3.74 uIU/mL Magnesium Level 1.90 1.80-2.40 mg/dL Total Bilirubin 0.8 0.2-1.0 mg/dL Aspartate Amino Transf (AST/SGOT) 13 10-37 U/L Alanine Aminotransferase (ALT/SGPT) 33 12-78 U/L Alkaline Phosphatase 86 50-136 U/L Total Protein 6.7 6.0-8.3 g/dL Albumin 3.3 L 3.5-5.0 g/dL C-Reactive Protein, Quantitative 52.90 H 0.5-3.0 mg/L Procalcitonin < 0.05 L 0.05-0.5 ng/mL DIAGNOSTICS / RADIOLOGY: [Copy/Paste Echos/Imaging Report here] ASSESSMENT: [] S/p EUA I&D cellulitis PLAN: [] advance diet Local wound care ANNE MAHAJAN MD Nov 26, 2024 20:27
[2024-11-27] VITALS (13 sets, daily range): BP systolic 107–153; BP diastolic 55–80; PULSE 56–81; RESP 18–20; TEMP 97.8–98.8; O2SAT 96–100
--- NOTE | 2024-11-27 07:46 | PN ---
This is a 29-year-old male with underlying history of morbid obesity, gastritis who presented to the ER for further evaluation of tenesmus, rectal pain. Symptoms have been ongoing since the past six days, patient had presented to the ER yesterday with similar complaints and had a CT abdomen done without contrast. Diagnosis of constipation was made and patient was given lactulose for further management. Patient continues to have significant pain especially when lying supine or using the restroom. Denies any hematochezia. He has been having subjective malaise and chills at home. Patient does report having family hist ory of anal fissures in his brothers. Patient denies any previous history of malignancy. He does have symptoms of sleep apnea and is supposed to have outpatient sleep study done. On presentation to the hospital, patient was noted to have T-max of 99.5 F, heart rate of 91, blood pressure of 145/84. Labs [place] [address], hemoglobin of 13.5, platelet cou nt of 137061. BMP remarkable for sodium of 136, potassium 4.0, creatinine of 0.8 and normal liver enzymes. A CT abdomen pelvis with IV contrast was performed which showed findings of 5.1 cm soft tissue mass noted near the anus. Consultation has been requested with General surgery. We will have Medical Oncology see this patient as well. Patient will receive IV fluids and broad- spectrum antibiotics with IV Zosyn. Patient will be placed on bowel rest. We will have pulmonology see this patient given underlying untreated obstructive sleep apnea. Patient will be started on CPAP therapy while inpatient. PHYSICAL EXAM GENERAL APPEARANCE: The patient is awake, alert, and oriented, in no acute c ardiopulmonary distress. Patient is morbidly obese NEUROLOGICAL: Cranial nerves II-XII grossly intact. Motor is 5/5 in bilateral upper and lower extremities proximal to distal. No sensory deficits. HEENT: Face is symmetric. Pupils are equal and reactive. Extraocular movements are intact. NECK: Supple. No JVD. No thyromegaly. No submental, submandibular, pre- /postauricular, occipital or supraclavicular lymphadenopathy. CHEST: Normal chest expansion. No Telemetry. LUNGS: Absence of any rales, rhonchi or any wheezing. CARDIOVASCULAR: Regular. S1 and S2 normal. No appreciable rubs, murmurs or gallops. ABDOMEN: Soft, nontender, and nondistended. There is no rebound, voluntary guarding, or rigidity. : Deferred. No [place]. EXTREMITIES: Non-edematous and not cyanotic. No clubbing. Good capillary refill. SKIN: No skin breakdown. Assessment 1. 5.1 cm enhancing soft tissue mass near the anus Without any rectal or perirectal abnormality 2. Hepatitis C cirrhosis 3. Morbidly obese 4. Leukocytosis Plan 1. The patient already have surgery done for the anal mass. We will follow-up with the result of the pathology. 2. If this is a benign lesion this patient should not follow-up with me. But if the lesion is malignant then this patient could follow-up with me. Will review 3. Continue care as per surgery for now. 4. It seems this patient stable he could be discharged from my point of view to follow-up with me in 3 weeks. I have long discussion with the patient and family member. I explained the plan of care for them. Vitals/Labs Vital Signs Date Time Temp Pulse Resp B/P (MAP) Pulse Ox O2 Delivery O2 Flow Rate FiO2 11/27/24 06:57 56 18 28 11/27/24 04:00 98.1 153/55 99 BIPAP 11/26/24 20:00 0 Medications Current Medications Ketorolac Tromethamine 15 mg ONCE ONCE IM Last administered on 11/24/24at 08:01; Start 11/24/24 at 06:30; Stop 11/24/24 at 06:31; Status DC Morphine Sulfate 4 mg ONCE ONCE IM Last administered on 11/24/24at 08:02; Start 11/24/24 at 06:30; Stop 11/24/24 at 06:32; Status DC Polyethylene Glycol/ Electrolytes 4,000 ml ONCE ONCE PO Last administered on 11/24/24at 09:04; Start 11/24/24 at 09:00; Stop 11/24/24 at 09:01; Status DC Iohexol 35,000 mg STK-MED ONCE IV; Start 11/24/24 at 14:35; Stop 11/24/24 at 14:35; Status DC Piperacillin Sod/ Tazobactam Sod 3.375 gm ONCE ONCE IV Last administered on 11/24/24at 16:28; Start 11/24/24 at 16:30; Stop 11/24/24 at 16:31; Status DC Lactated Ringer's 1,000 ml @ 75 mls/hr [id number] IV Last administered on 11/25/24 08:22; Start 11/24/24 at 18:00; Stop 11/25/24 at 20:37; Status DC Morphine Sulfate 2 mg Q6H PRN IVP Last administered on 11/25/24at 08:19; Start 11/24/24 at 18:00; Stop 11/25/24 at 11:45; Status DC Pantoprazole Sodium 40 mg Q24H IVP Last administered on 11/24/24at 18:21; Start 11/24/24 at 18:00; Stop 12/24/24 at 17:59 Piperacillin Sod/ Tazobactam Sod 3.375 gm Q8H IVPB Last administered on 11/27/24at 00:17; Start 11/25/24 at 00:30; Stop 12/05/24 at 00:29 Acetaminophen 650 mg Q6H PRN PO Last administered on 11/24/24at 22:26; Start 11/24/24 at 18:00; Stop 12/24/24 at 17:59 Ondansetron HCl 4 mg Q6H PRN IVP; Start 11/24/24 at 18:00; Stop 12/24/24 at 17:59 Budesonide 0.5 mg BIDRESP IH Last administered on 11/27/24at 06:56; Start 11/24/24 at 18:00; Stop 12/24/24 at 17:59 Albuterol 1 udvial Q6H PRN IH Last administered on 11/24/24at 23:33; Start 11/24/24 at 18:00; Stop 12/24/24 at 17:59 Enoxaparin Sodium 40 mg DAILY SQ Last administered on 11/26/24at 08:19; Start 11/25/24 at 13:00; Stop 12/25/24 at 12:59 Acetaminophen 1,000 mg ONCE ONCE IVPB; Start 11/24/24 at 22:30; Stop 11/24/24 at 22:28; Status DC Ketorolac Tromethamine 15 mg ONCE ONCE IV Last administered on 11/24/24at 22:45; Start 11/24/24 at 22:30; Stop 11/24/24 at 22:31; Status DC Hydromorphone HCl 1 mg Q3H3 PRN IVP; Start 11/25/24 at 12:00; Stop 11/25/24 at 20:18; Status DC Ketorolac Tromethamine 30 mg Q6H IVP Last administered on 11/27/24at 00:33; Start 11/25/24 at 12:00; Stop 11/30/24 at 11:59 Lidocaine HCl 100 mg STK-MED ONCE .ROUTE; Start 11/25/24 at 15:22; Stop 11/25/24 at 15:23; Status DC Succinylcholine Chloride 200 mg STK-MED ONCE .ROUTE; Start 11/25/24 at 15:22; Stop 11/25/24 at 15:23; Status DC Propofol 200 mg STK-MED ONCE IV; Start 11/25/24 at 15:22; Stop 11/25/24 at 15:23; Status DC Dexamethasone Sodium Phosphate 10 mg STK-MED ONCE .ROUTE; Start 11/25/24 at 15:22; Stop 11/25/24 at 15:23; Status DC Glycopyrrolate 1 mg STK-MED ONCE .ROUTE; Start 11/25/24 at 15:22; Stop 11/25/24 at 15:23; Status DC Neostigmine Methylsulfate 10 mg STK-MED ONCE IV; Start 11/25/24 at 15:22; Stop 11/25/24 at 15:23; Status DC Ondansetron HCl 4 mg STK-MED ONCE .ROUTE; Start 11/25/24 at 15:22; Stop 11/25/24 at 15:23; Status DC Rocuronium Shaniko 50 mg STK-MED ONCE .ROUTE; Start 11/25/24 at 15:23; Stop 11/25/24 at 15:23; Status DC Fentanyl Citrate 100 mcg STK-MED ONCE .ROUTE; Start 11/25/24 at 15:23; Stop 11/25/24 at 15:23; Status DC Midazolam HCl 2 mg STK-MED ONCE .ROUTE; Start 11/25/24 at 15:27; Stop 11/25/24 at 15:28; Status DC Piperacillin Sod/ Tazobactam Sod 50 ml @ As Directed STK-MED ONCE .ROUTE; Start 11/25/24 at 16:16; Stop 11/25/24 at 16:17; Status DC Propofol 200 mg STK-MED ONCE IV; Start 11/25/24 at 16:29; Stop 11/25/24 at 16:32; Status DC Ketamine HCl 50 mg STK-MED ONCE .ROUTE; Start 11/25/24 at 16:34; Stop 11/25/24 at 16:34; Status DC Famotidine 20 mg STK-MED ONCE IV; Start 11/25/24 at 16:41; Stop 11/25/24 at 16:42; Status DC Fentanyl Citrate 100 mcg STK-MED ONCE .ROUTE; Start 11/25/24 at 17:23; Stop 11/25/24 at 17:24; Status DC Cefazolin Sodium 1 gm STK-MED ONCE IRRIG Last administered on 11/25/24at 17:25; Start 11/25/24 at 17:25; Stop 11/25/24 at 17:53; Status DC Cefazolin Sodium 1 gm STK-MED ONCE .ROUTE; Start 11/25/24 at 17:38; Stop 11/25/24 at 17:40; Status DC Bupivacaine HCl 2.5 mg STK-MED ONCE IJ Last administered on 11/25/24at 17:40; Start 11/25/24 at 17:41; Stop 11/25/24 at 17:42; Status DC Lidocaine/ Epinephrine 20 ml STK-MED ONCE .ROUTE; Start 11/25/24 at 17:41; Stop 11/25/24 at 17:42; Status DC Ketorolac Tromethamine 30 mg STK-MED ONCE .ROUTE; Start 11/25/24 at 17:46; Stop 11/25/24 at 17:46; Status DC Ketorolac Tromethamine 60 mg STK-MED ONCE IM Last administered on 11/25/24at 17:40; Start 11/25/24 at 17:40; Stop 11/25/24 at 18:17; Status DC Acetaminophen 100 ml @ As Directed STK-MED ONCE .ROUTE; Start 11/25/24 at 18:16; Stop 11/25/24 at 18:16; Status DC Lidocaine/ Epinephrine 20 ml STK-MED ONCE IJ Last administered on 11/25/24at 17:40; Start 11/25/24 at 17:40; Stop 11/25/24 at 18:17; Status DC Oxycodone/ Acetaminophen 1 tab Q4H PRN PO Last administered on 11/26/24at 08:42; Start 11/25/24 at 20:30; Stop 12/02/24 at 20:29 Hydromorphone HCl 1 mg Q3H3 PRN IVP Last administered on 11/26/24at 16:46; Start 11/25/24 at 20:30; Stop 11/30/24 at 20:29 Vancomycin HCl 1 gm Q12H IV; Start 11/26/24 at 10:30; Stop 11/26/24 at 10:17; Status DC Vancomycin HCl 500 ml @ 250 mls/hr ONCE ONCE IV Last administered on 11/26/24at 14:04; Start 11/26/24 at 12:00; Stop 11/26/24 at 13:59; Status DC Vancomycin HCl 250 ml @ 125 mls/hr Q8H IV Last administered on 11/27/24at 03:28; Start 11/26/24 at 20:00; Stop 12/06/24 at 19:59 Vancomycin HCl 1 each AD IV; Start 11/26/24 at 10:30; Stop 12/10/24 at 10:29 Lorazepam 0.25 mg ONCE IVP; Start 11/26/24 at 19:30; Stop 11/26/24 at 23:30; Status DC DANIELLE STEWART MD Nov 27, 2024 07:46
--- NOTE | 2024-11-27 11:38 | NUR ---
LATE ENTRY: WASTED MEDICATION During administration of prn pain medication, Percocet, patient dropped medication on floor. Medication wasted with nurse witness in stat safe, and new dose pulled and administered.
--- NOTE | 2024-11-27 12:01 | NUR ---
[facility] Per [facility], nurse ok to call report when pt ready for DC. Primary nurse & STAVE SAW OPERATOR notified.
--- NOTE | 2024-11-27 12:33 | PN ---
[facility] PROGRESS NOTE Date of Service: Nov 27, 2024 Time of Service: 12:26 SUBJECTIVE: [ ] 11/25/24 patient was seen examined on the medical floor. Case discussed with the RN. He is doing better though has lot of pain. He denies nausea vomiting 11/26/24 the patient pod 1 recuperating well, cultures were obtained and pathology specimen was sent. The [facility] case management sent a referral. DR Kirby Salas MD taught family on wound care. no fevers, no chills reported. 11/28/23 we continue to wait for intraoperative cultures. Patient has been afebrile patient was taught on wound care patient is home health has been approved. So far no growth on wound cultures pathology report of lesion also pending we will follow with oncologists three weeks post discharge. REVIEW OF SYSTEMS CONSTITUTIONAL: Denies fevers, chills, or night sweats. No unintentional weight loss reported. NEUROLOGICAL: Denies headache, amaurosis fugax, motor weakness, sensory deficit, vertigo/spinning sensation, gait abnormalities, or tremors. ENT: No hearing loss, otalgia, otorrhea, rhinitis, rhinorrhea, hoarseness, or sore throat. CARDIOVASCULAR: Denies any exertional angina, dyspnea on exertion, orthopnea, paroxysmal nocturnal dyspnea, palpitations, life-threatening arrhythmias, claudication. PULMONARY: Denies any shortness of breath, cough, phlegm/sputum, hemoptysis, pleuritic chest pain. SLEEP: Denies morning headaches, daytime somnolence or napping. Denies difficulty falling asleep, staying asleep, waking from sleep. Denies knowledge of snoring. GASTROINTESTINAL: Tenesmus, rectal pain GENITOURINARY: Denies frequency, urgency, nocturia, hematuria or incontinence (Storage/Irritative symptoms.) Low urinary stream, straining to void, urinary intermittency or hesitancy, splitting of the voiding stream, terminal dribbling. ENDOCRINOLOGIC: Denies polyuria, polydipsia, polyphagia or heat/cold intoleranc es. HEMATOLOGIC: Denies thrombophilia/previous clots, or coagulopathy/bleeding disorders. ONCOLOGIC: Denies personal history of malignancy. DERMATOLOGIC: Denies rashes or pruritus. PSYCHIATRIC: Denies any suicidal or homicidal ideation. Denies hallucinations. PHYSICAL EXAM GENERAL APPEARANCE: The patient is awake, alert, and oriented, in no acute cardiopulmonary distress. Patient is morbidly obese NEUROLOGICAL: Cranial nerves II-XII grossly intact. Motor is 5/5 in bilateral upper and lower extremities proximal to distal. No sensory deficits. HEENT: Face is symmetric. Pupils are equal and reactive. Extraocular movements are intact. NECK: Supple. No JVD. No thyromegaly. No submental, submandibular, pre- /postauricular, occipital or supraclavicular lymphadenopathy. CHEST: Normal chest expansion. No Telemetry. LUNGS: Absence of any rales, rhonchi or any wheezing. CARDIOVASCULAR: Regular. S1 and S2 normal. No appreciable rubs, murmurs or gallops. ABDOMEN: Soft, nontender, and nondistended. There is no rebound, voluntary guarding, or rigidity. : Deferred. No Rabago. EXTREMITIES: Non-edematous and not cyanotic. No clubbing. Good capillary refill. SKIN: No skin breakdown. Vital Signs (last 8hr) Date Time Temp Pulse Resp B/P (MAP) Pulse Ox O2 Delivery O2 Flow Rate FiO2 11/27/24 11:33 97.9 72 18 128/70 95 Room Air 11/27/24 10:54 67 18 N/A Room Air 21 11/27/24 07:52 58 18 107/56 100 CPAP 11/27/24 06:57 56 18 28 11/27/24 06:57 56 18 LABS: Laboratory: Test 11/27/24 11:02 11/26/24 03:49 Range/Units Vancomycin Level Trough 17.0 10.0-20.0 UG/ML White Blood Count 19.4 #H 4.8-10.8 K/uL Red Blood Count 4.48 L 4.50-6.20 MIL/uL Hemoglobin 12.8 L 14.0-18.0 g/dL Hematocrit 38.7 L 42-54 % Mean Corpuscular Volume 86.4 79-99 fL Mean Corpuscular Hemoglobin 28.6 27.0-33.0 pg Mean Corpuscular Hemoglobin Concent 33.1 32.0-36.0 g/dL Red Cell Distribution Width 12.1 11.0-15.5 % Platelet Count 203 130-400 K/uL Mean Platelet Volume 10.2 7.5-10.5 fL Nucleated Red Blood Cells 0.0 0.0-0.19 % Sodium Level 134 L 136-145 mmol/L Potassium Level 4.1 3.5-5.1 mmol/L Chloride Level 100 L 101-111 mmol/L Carbon Dioxide Level 28 21-32 mmol/L Blood Urea Nitrogen 10 7-18 mg/dL Creatinine 0.9 0.5-1.3 mg/dL Glomerular Filtration Rate Calc 119 >90 mL/min Random Glucose 199 #H 70-105 mg/dL Total Calcium 8.9 8.5-10.1 mg/dL Thyroid Stimulating Hormone (TSH) 0.48 0.36-3.74 uIU/mL Current Medications Medications (Trade) Dose Ordered Sig/Janes Route PRN Reason Start Time Stop Time Status Last Admin Dose Admin Acetaminophen (TYLenol 325MG TAB) 650 mg Q6H PRN PO MILD PAIN (1-3) 11/24/24 18:00 12/24/24 17:59 11/24/24 22:26 650 MG Albuterol (DUOneb) 1 udvial Q6H PRN IH SHORTNESS OF BREATH 11/24/24 18:00 12/24/24 17:59 11/24/24 23:33 1 UDVIAL Budesonide (Pulmicort 0.5 Mg/2ml) 0.5 mg BIDRESP IH 11/24/24 18:00 12/24/24 17:59 11/27/24 06:56 0.5 MG Enoxaparin Sodium (Lovenox) 40 mg DAILY SQ 11/25/24 13:00 12/25/24 12:59 11/27/24 08:07 40 MG Hydromorphone HCl (DiLAUDid 1MG INJ) 1 mg Q3H3 PRN IVP SEVERE PAIN (7-10) 11/25/24 12:00 11/25/24 20:18 DC Hydromorphone HCl (DiLAUDid 1MG INJ) 1 mg Q3H3 PRN IVP SEVERE PAIN (7-10) 11/25/24 20:30 11/30/24 20:29 11/26/24 16:46 1 MG Ketorolac Tromethamine (toRADol) 30 mg Q6H IVP 11/25/24 12:00 11/30/24 11:59 11/27/24 00:33 30 MG Lactated Ringer's 1,000 ml @ 75 mls/hr [id number] IV 11/24/24 18:00 11/25/24 20:37 DC 11/25/24 08:22 75 MLS/HR Lorazepam (AtiVAN) 0.25 mg ONCE IVP 11/26/24 19:30 11/26/24 23:30 DC Morphine Sulfate (morPHINE 2MG SYG) 2 mg Q6H PRN IVP SEVERE PAIN (7-10) 11/24/24 18:00 11/25/24 11:45 DC 11/25/24 08:19 2 MG Ondansetron HCl (zoFRAN 4MG INJ) 4 mg Q6H PRN IVP NAUSEA/VOMITING 11/24/24 18:00 12/24/24 17:59 Oxycodone/ Acetaminophen (perCOCET) 1 tab Q4H PRN PO MODERATE PAIN (4-6) 11/25/24 20:30 12/02/24 20:29 11/27/24 11:08 1 TAB Pantoprazole Sodium (PROTonix 40MG INJ) 40 mg Q24H IVP 11/24/24 18:00 12/24/24 17:59 11/24/24 18:21 40 MG Piperacillin Sod/ Tazobactam Sod (Zosyn 3.375gm+NS 50ml) 3.375 gm Q8H IVPB 11/25/24 00:30 12/05/24 00:29 11/27/24 10:08 3.375 GM Vancomycin HCl 250 ml @ 125 mls/hr Q8H IV 11/26/24 20:00 12/06/24 19:59 11/27/24 12:07 125 MLS/HR Vancomycin HCl (Vancomycin Protocol) 1 each AD IV 11/26/24 10:30 12/10/24 10:29 Vancomycin HCl (Vancomycin 1g/ 250ml Kit) 1 gm Q12H IV 11/26/24 10:30 11/26/24 10:17 DC DIAGNOSTICS / RADIOLOGY: [ ] ASSESSMENT: Acute respiratory failure with hypoxia. Requiring oxygen supplemental POA sepsis secondary to perirectal abscess POA status post I&D POA Anorectal mass, POA Rectal tenesmus, POA Leukocytosis, POA Morbid obesity, POA Hepatic steatosis, POA Untreated obstructive sleep apnea, POA History of gastritis, POA History of seasonal allergies, POA PLAN: Admit: Surgical floor condition: Fair Status: Full code IVF: [facility] general surgeon data capture specialist, foil spooler; Antibiotics: Zosyn 3.375 g IV every8 hours and vancomycin1 g every12 hours. Status post I&D perirectal abscess we will follow postoperative recommendations per surgeon. wound care dressing per DR Kirby Salas MD: as directed family was taught already Labs cbc, cmp, mag+ Replace electrolytes as needed as per protocol to keep potassium above 4.0 magnesium 2.0. Continues with CPAP overnight. Continue bronchodilators. And Pulmicort inhaler. PRN: MEDICATIONS Tylenol 650 mg po every 4 hrs for fever zofran 4 mg IV every 6 hrs for n/v bowel regiment: lactulose 20 gm PO BID PRN constipation Pain management: Toradol IV q6 hrs as needed. Supportive measures: DVT ppx, GI ppx all questions answered case management: APS upon discharged approved waiting for culture final report , Patology report will follow up with DR Cisneros three wks. Supervising MD: Dr. Perkins c/d This document was generated in part using voice recognition software, occasional wrong word or sound alike substitutions may have occurred due to the inherent limitations of voice recognition software. Read the chart carefully and recognize using context, where the substitutions have occurred. Although every effort was made to edit the content, telecommunication tower technician and typing errors may occur ATTESTATION BY PHYSICIAN pt was in restroom and i was unable to see however, I reviewed the documentation, medical decision making, and treatment plan as noted by the mid- level provider above. I agree with the findings and plan of care. Tin Perkins MD, ELIZABETH NP Nov 27, 2024 12:33 TIN PERKINS MD Nov 28, 2024 16:58
--- NOTE | 2024-11-27 16:12 | PN ---
[facility] PROGRESS NOTE Date Patient Seen: Nov 27, 2024 Time of Visit: 16:11 Supervising Physician: SAVAGE CHEEMA Consulting Physician: Dr Murillo Outpatient Specialists: [ ] Inpatient Consults: PROBLEM LIST: Obstructive sleep apnea, POA Obesity hypoventilation syndrome, POA Morbid obesity, BMI of 58.4 Rectal mass, POA Hepatic steatosis, POA Leukocytosis, POA History of chronic bronchitis, asthma PLAN: Antibiotic management per primary FOLLOW GENERAL SURGERY RECS CPAP at night - outpatient sleep study once discharged DuoNeb q.6 as needed for shortness of breaths Keep head of bed above 30 Incentive spirometry Keep O2 saturation above 90% Rest of plan care of primary INTERVAL HISTORY: Patient was seen and examined by me , laying in bed , continues on IV antibiotics. He is s/p Rectal surgery yesterday- no postop complications PENDING CYTOLOGY Was able to tolerate - CPAP overnight CXR reviewed . 6 min walk test prior to discharge continue IS family at bedside- long discussion regarding his outpatient plan from pulmonary standpiont Case mgt to help arrange cppap if able upon DC REVIEW OF SYSTEMS: 12 point ROS reviewed with patient. Pertinent positives mentioned above. Otherwise negative. PHYSICAL EXAM: GENERAL: alert, weak, awake oriented x 3 HEENT: EOMI, Sclera non icteric, moist mucosa NECK: Supple, no JVD, trachea midline LUNGS: Clear breath sounds bilaterally. No wheezes HEART: Regular rate and rhythm. Normal S1 and S2, without murmurs ABD: Large body habitus EXT: No clubbing cyanosis or edema NEURO: Alert and oriented to person, follows commands Vital Signs (last 8hr) Date Time Temp Pulse Resp B/P (MAP) Pulse Ox O2 Delivery O2 Flow Rate FiO2 11/27/24 15:40 76 18 144/80 98 Room Air 11/27/24 11:33 97.9 72 18 128/70 95 Room Air 11/27/24 10:54 67 18 N/A Room Air 21 LABS: Hematology Labs: Test 11/26/24 03:49 Range/Units White Blood Count 19.4 #H 4.8-10.8 K/uL Red Blood Count 4.48 L 4.50-6.20 MIL/uL Hemoglobin 12.8 L 14.0-18.0 g/dL Hematocrit 38.7 L 42-54 % Mean Corpuscular Volume 86.4 79-99 fL Mean Corpuscular Hemoglobin 28.6 27.0-33.0 pg Mean Corpuscular Hemoglobin Concent 33.1 32.0-36.0 g/dL Red Cell Distribution Width 12.1 11.0-15.5 % Platelet Count 203 130-400 K/uL Mean Platelet Volume 10.2 7.5-10.5 fL Nucleated Red Blood Cells 0.0 0.0-0.19 % Chemistry Labs: Test 11/26/24 03:49 Range/Units Sodium Level 134 L 136-145 mmol/L Potassium Level 4.1 3.5-5.1 mmol/L Chloride Level 100 L 101-111 mmol/L Carbon Dioxide Level 28 21-32 mmol/L Blood Urea Nitrogen 10 7-18 mg/dL Creatinine 0.9 0.5-1.3 mg/dL Glomerular Filtration Rate Calc 119 >90 mL/min Random Glucose 199 #H 70-105 mg/dL Total Calcium 8.9 8.5-10.1 mg/dL Thyroid Stimulating Hormone (TSH) 0.48 0.36-3.74 uIU/mL DIAGNOSTICS / RADIOLOGY RESULTS: [ ] PLAN NEURO: Minimize central acting medications as possible. Maintain fall precautions, adequate lighting during the day PULMONARY: Supplemental 02 as needed. Maintain aspiration precautions at all times CARDIOVASCULAR: Follow hemodynamics. Vital signs per facility protocol GI & NUTRITION: Continue with nutritional support. Continue stool softeners and laxatives as needed. KIDNEYS & ELECTROLYTES: Strict monitoring of intake, output and overall fluid balance. Avoid nephrotoxic medications to the extent possible. Medications to be dosed according to renal function. Monitor electrolytes and replace as needed ENDOCRINE: Maintain blood glucose between 100-180 at all times. Hypoglycemia protocol in place INFECTIOUS DISEASE: Trend temperature, WBC and procalcitonin level Follow cultures, deescalate antibiotics as soon as possible. Panculture if new onset fever ONCOLOGY/HEMATOLOGY/COAGULATION: Monitor for s/s of bleeding Monitor hemoglobin, coagulation studies as needed SKIN: Pressure ulcer prevention per facility protocol Specialty mattress ORTHO/REHAB: Continue PT/OT Prophylaxis: Continue GI and DVT prophylaxis Code Status: Full Resuscitation Disposition: TBD Other: Total patient care time exceeds 35 minutes excluding all procedures. JOEL HERNANDEZ Nov 27, 2024 16:12
--- NOTE | 2024-11-27 20:41 | NUR ---
VANCOMYCIN DOSE, LONG ADMINISTRATION TIME: Patient still infusing morning dose of Zosyn. One IV access and in use. Patient was told that another line would need to be started for completion of ordered Vancomycin. Family at bedside. Patients mother requesting that another line not be place. Educated patient and family that ordered dose would need to be administered. Patient agreeable to starting new IV line. During preparation to start line to left upper extremity, patient's mother voiced that her son "would not be able to wipe his ___" if "line was started on his left arm. Patient verified that he is right handed, but uses his left arm. Mother requested that another nurse come to start a line on his right arm. Nurse was agreeable and had another nurse insert IV. Returned to patient room to find new line to LEFT forearm. Zosyn continued and Vancomycin initiated. At a later time, patient was seen ambulating on unit with his mother, pump and line still attached. Upon return to room, nurse noted that IV to right hand showing signs/symptoms of infiltration. IV discontinued. Vancomycin reinitiated to left forearm. At next rounding, nurse noted that Vancomycin had been shut off. Infusion restarted. Returned to round again and noted pump was off again. Family stated that it was "because the pump had run out of battery", however nurse had previously obtained a scrap baller for the pump and ensured that a fully charged pump was available for duration of the infusion. Battery life indicated full. Infusion restarted.
[2024-11-27] MEDS ORDERED: VANCOMYCIN 1.5 GM/250 ML BAG 250 ML IV SCH (22:30)
[2024-11-27] MEDS: ZOSYN 3.375GM +NS 50ML IVPB SCH (22:33)
[2024-11-28] VITALS (11 sets, daily range): BP systolic 113–138; BP diastolic 51–85; PULSE 56–86; RESP 18–25; TEMP 97.9–98.4; O2SAT 97–100
[2024-11-28] MEDS: VANCOMYCIN 1.5 GM/250 ML BAG 250 ML IV SCH (05:17)
--- NOTE | 2024-11-28 09:06 | PN ---
[facility] PROGRESS NOTE Date of Service: Nov 28, 2024 Time of Service: 09:03 SUBJECTIVE: [ ] 11/25/24 patient was seen examined on the medical floor. Case discussed with the RN. He is doing better though has lot of pain. He denies nausea vomiting 11/26/24 the patient pod 1 recuperating well, cultures were obtained and pathology specimen was sent. The [facility] will need [facility] case management sent a referral. DR Kirby Salas MD taught family on wound care. no fevers, no chills reported. 11/28/23 we continue to wait for intraoperative cultures. Patient has been afebrile patient was taught on wound care patient is home health has been approved. So far no growth on wound cultures pathology report of lesion also pending we will follow with oncologists three weeks post discharge. 11/28/24 patient recuperating well. Reports having discomfort at incision site. No fevers no chills. Intraoperative cultures positive Gram-negative E coli and Enterococcus faecalis Peptostreptoccus Prevoti ID for antibiotics stewardship recommendations. REVIEW OF SYSTEMS CONSTITUTIONAL: Denies fevers, chills, or night sweats. No unintentional weight loss reported. NEUROLOGICAL: Denies headache, amaurosis fugax, motor weakness, sensory deficit, vertigo/spinning sensation, gait abnormalities, or tremors. ENT: No hearing loss, otalgia, otorrhea, rhinitis, rhinorrhea, hoarseness, or sore throat. CARDIOVASCULAR: Denies any exertional angina, dyspnea on exertion, orthopnea, paroxysmal nocturnal dyspnea, palpitations, life-threatening arrhythmias, claudication. PULMONARY: Denies any shortness of breath, cough, phlegm/sputum, hemoptysis, pleuritic chest pain. SLEEP: Denies morning headaches, daytime somnolence or napping. Denies difficulty falling asleep, staying asleep, waking from sleep. Denies knowledge of snoring. GASTROINTESTINAL: Tenesmus, rectal pain GENITOURINARY: Denies frequency, urgency, nocturia, hematuria or incontinence (Storage/Irritative symptoms.) Low urinary stream, straining to void, urinary intermittency or hesitancy, splitting of the voiding stream, terminal dribbling. ENDOCRINOLOGIC: Denies polyuria, polydipsia, polyphagia or heat/cold intoleranc es. HEMATOLOGIC: Denies thrombophilia/previous clots, or coagulopathy/bleeding disorders. ONCOLOGIC: Denies personal history of malignancy. DERMATOLOGIC: Denies rashes or pruritus. PSYCHIATRIC: Denies any suicidal or homicidal ideation. Denies hallucinations. PHYSICAL EXAM GENERAL APPEARANCE: The patient is awake, alert, and oriented, in no acute cardiopulmonary distress. Patient is morbidly obese NEUROLOGICAL: Cranial nerves II-XII grossly intact. Motor is 5/5 in bilateral upper and lower extremities proximal to distal. No sensory deficits. HEENT: Face is symmetric. Pupils are equal and reactive. Extraocular movements are intact. NECK: Supple. No JVD. No thyromegaly. No submental, submandibular, pre- /postauricular, occipital or supraclavicular lymphadenopathy. CHEST: Normal chest expansion. No Telemetry. LUNGS: Absence of any rales, rhonchi or any wheezing. CARDIOVASCULAR: Regular. S1 and S2 normal. No appreciable rubs, murmurs or gallops. ABDOMEN: Soft, nontender, and nondistended. There is no rebound, voluntary guarding, or rigidity. : Deferred. No Rabago. EXTREMITIES: Non-edematous and not cyanotic. No clubbing. Good capillary refill. SKIN: No skin breakdown. Vital Signs (last 8hr) Date Time Temp Pulse Resp B/P (MAP) Pulse Ox O2 Delivery O2 Flow Rate FiO2 11/28/24 08:04 98.4 56 20 121/51 100 Room Air 11/28/24 07:15 59 25 11/28/24 07:15 59 25 28 11/28/24 04:00 98.1 63 20 122/54 96 Room Air 11/28/24 01:31 63 18 28 LABS: Laboratory: Test 11/27/24 11:02 Range/Units Vancomycin Level Trough 17.0 10.0-20.0 UG/ML Current Medications Medications (Trade) Dose Ordered Sig/Janes Route PRN Reason Start Time Stop Time Status Last Admin Dose Admin Acetaminophen (TYLenol 325MG TAB) 650 mg Q6H PRN PO MILD PAIN (1-3) 11/24/24 18:00 12/24/24 17:59 11/24/24 22:26 650 MG Albuterol (DUOneb) 1 udvial Q6H PRN IH SHORTNESS OF BREATH 11/24/24 18:00 12/24/24 17:59 11/24/24 23:33 1 UDVIAL Budesonide (Pulmicort 0.5 Mg/2ml) 0.5 mg BIDRESP IH 11/24/24 18:00 12/24/24 17:59 11/28/24 07:15 0.5 MG Enoxaparin Sodium (Lovenox) 40 mg DAILY SQ 11/25/24 13:00 12/25/24 12:59 11/28/24 08:01 40 MG Hydromorphone HCl (DiLAUDid 1MG INJ) 1 mg Q3H3 PRN IVP SEVERE PAIN (7-10) 11/25/24 12:00 11/25/24 20:18 DC Hydromorphone HCl (DiLAUDid 1MG INJ) 1 mg Q3H3 PRN IVP SEVERE PAIN (7-10) 11/25/24 20:30 11/30/24 20:29 11/26/24 16:46 1 MG Ketorolac Tromethamine (toRADol) 30 mg Q6H IVP 11/25/24 12:00 11/30/24 11:59 11/28/24 00:17 30 MG Lactated Ringer's 1,000 ml @ 75 mls/hr [id number] IV 11/24/24 18:00 11/25/24 20:37 DC 11/25/24 08:22 75 MLS/HR Lorazepam (AtiVAN) 0.25 mg ONCE IVP 11/26/24 19:30 11/26/24 23:30 DC Morphine Sulfate (morPHINE 2MG SYG) 2 mg Q6H PRN IVP SEVERE PAIN (7-10) 11/24/24 18:00 11/25/24 11:45 DC 11/25/24 08:19 2 MG Ondansetron HCl (zoFRAN 4MG INJ) 4 mg Q6H PRN IVP NAUSEA/VOMITING 11/24/24 18:00 12/24/24 17:59 Oxycodone/ Acetaminophen (perCOCET) 1 tab Q4H PRN PO MODERATE PAIN (4-6) 11/25/24 20:30 12/02/24 20:29 11/27/24 11:08 1 TAB Pantoprazole Sodium (PROTonix 40MG INJ) 40 mg Q24H IVP 11/24/24 18:00 4/4/25 17:59 11/27/24 18:34 40 MG Piperacillin Sod/ Tazobactam Sod (Zosyn 3.375gm+NS 50ml) 3.375 gm Q8H IVPB 11/25/24 00:30 11/27/24 18:18 DC 11/27/24 10:08 3.375 GM Piperacillin Sod/ Tazobactam Sod (Zosyn 3.375gm+NS 50ml) 3.375 gm Q8H IVPB 11/27/24 23:00 12/07/24 22:59 11/28/24 08:00 3.375 GM Vancomycin HCl 250 ml @ 125 mls/hr Q8H IV 11/26/24 20:00 11/27/24 14:08 DC 11/27/24 14:03 125 MLS/HR Vancomycin HCl 250 ml @ 125 mls/hr Q8H IV 11/27/24 22:30 11/27/24 20:12 DC Vancomycin HCl 250 ml @ 125 mls/hr Q8H IV 11/28/24 05:00 12/08/24 04:59 11/28/24 05:17 125 MLS/HR Vancomycin HCl (Vancomycin Protocol) 1 each AD IV 11/26/24 10:30 12/10/24 10:29 Vancomycin HCl (Vancomycin 1g/ 250ml Kit) 1 gm Q12H IV 11/26/24 10:30 11/26/24 10:17 DC DIAGNOSTICS / RADIOLOGY: [ ] ASSESSMENT: Acute respiratory failure with hypoxia. Requiring oxygen supplemental POA sepsis secondary to perirectal abscess POA status post I&D POA gram negative wound cultures: enterococcus faecalis and E coli Anorectal mass, POA Rectal tenesmus, POA Leukocytosis, POA Morbid obesity, POA Hepatic steatosis, POA Untreated obstructive sleep apnea, POA History of gastritis, POA History of seasonal allergies, POA PLAN: Admit: Surgical floor condition: Fair Status: Full code IVF: [employer] general surgeon predictive maintenance specialist, customer service consultant; intraoperative cultures with gram negative Enterococcus Faecalis and Ecoli ID consulted for Abt's recommendations. Antibiotics: Zosyn 3.375 g IV every8 hours and vancomycin1 g every12 hours. Status post I&D perirectal abscess we will follow postoperative recommendations per surgeon. wound care dressing per DR Kirby Turner MD: as directed family was taught al ready Labs cbc, cmp, mag+ Replace electrolytes as needed as per protocol to keep potassium above 4.0 magnesium 2.0. Continues with CPAP overnight. Continue bronchodilators. And Pulmicort inhaler. PRN: MEDICATIONS Tylenol 650 mg po every 4 hrs for fever zofran 4 mg IV every 6 hrs for n/v bowel regiment: lactulose 20 gm PO BID PRN constipation Pain management: Toradol IV q6 hrs as needed Dilaudid1 mg for severe pain as needed, Percocet one tablet every 4 hours as needed for moderate pain. Supportive measures: DVT ppx, GI ppx all questions answered case management: APS upon discharged approved waiting for culture final repo rt , Patology report will follow up with DR Cisneros three wks. Supervising MD: Dr. Gregorio Castle c/d This document was generated in part using voice recognition software, occasional wrong word or sound alike substitutions may have occurred due to the inherent limitations of voice recognition software. Read the chart carefully and recognize using context, where the substitutions have occurred. Although every effort was made to edit the content, crucible furnace tender and typing errors may occur ATTESTATION BY PHYSICIAN I have seen and examined the patient. I reviewed the documentation, medical decision making, and treatment plan as noted by the mid-level provider above. I agree with the findings and plan of care. Jessica Perkins MD, ELIZABETH NP Nov 28, 2024 09:06 JESSICA PERKINS MD Nov 28, 2024 16:59
[2024-11-28 09:36] LABS: BASOPHILS # (AUTO) 0.03 K/uL (0.00-0.20); BASOPHILS % (AUTO) 0.4 % (0.0-5.0); EOSINOPHILS # (AUTO) 0.19 K/uL (0.00-0.70); EOSINOPHILS % (AUTO) 2.3 % (0.0-8.0); HEMATOCRIT 33.8 % (42-54); IMMATURE GRANULOCYTE ABSOLUTE 0.04 K/uL (0-1); LYMPHOCYTES # (AUTO) 1.8 K/uL (1.0-4.8); LYMPHOCYTES % (AUTO) 20.9 % (21.0-51.0); MEAN CORPUSCULAR HEMOGLOBIN 29.8 pg (27.0-33.0); MEAN CORPUSCULAR HGB CONC 33.1 g/dL (32.0-36.0); MEAN CORPUSCULAR VOLUME 89.9 fL (79-99); MONOCYTES # (AUTO) 0.7 K/uL (0.1-1.0); MONOCYTES % (AUTO) 8.1 % (3.0-13.0); NEUTROPHILS # (AUTO) 5.7 K/uL (1.8-7.7); NEUTROPHILS % (AUTO) 67.8 % (40.0-77.0); PLATELET COUNT (AUTO) 161 K/uL (130-400); RED BLOOD CELL COUNT(AUTO) 3.76 MIL/uL (4.50-6.20); RED CELL DISTRIBUTION WIDTH 12.7 % (11.0-15.5); WHITE BLOOD COUNT (AUTO) 8.4 K/uL (4.8-10.8)
[2024-11-28 09:49] LABS: CREATININE 0.7 mg/dL (0.5-1.3); POTASSIUM 3.9 mmol/L (3.5-5.1)
[2024-11-28 09:51] LABS: ALBUMIN 2.6 g/dL (3.5-5.0); BILIRUBIN,TOTAL 0.2 mg/dL (0.2-1.0); MAGNESIUM 1.7 mg/dL (1.80-2.40); TOTAL PROTEIN, SERUM 5.7 g/dL (6.0-8.3)
[2024-11-28] MEDS: doCUSate SODIUM 100 MG CAP PO ONE (11:56)
[2024-11-28 14:35] LABS: INR 1.05 (0.85-1.15); PROTHROMBIN TIME 11.1 SEC (9.6-11.6)
[2024-11-28 14:36] LABS: PARTIAL THROMBOPLASTIN TIME 29.2 SEC (26.3-35.5)
--- NOTE | 2024-11-28 17:13 | PN ---
[facility] PROGRESS NOTE Date Patient Seen: Nov 28, 2024 Time of Visit: 17:12 Supervising Physician: SAVAGE CHEEMA Consulting Physician: Dr Murillo Outpatient Specialists: [ ] Inpatient Consults: PROBLEM LIST: Obstructive sleep apnea, POA Obesity hypoventilation syndrome, POA Morbid obesity, BMI of 58.4 Rectal mass, POA Hepatic steatosis, POA Leukocytosis, POA History of chronic bronchitis, asthma PLAN: Antibiotic management per primary FOLLOW GENERAL SURGERY RECS CPAP at night - outpatient sleep study once discharged DuoNeb q.6 as needed for shortness of breaths Keep head of bed above 30 Incentive spirometry Keep O2 saturation above 90% Rest of plan care of primary INTERVAL HISTORY: Patient was seen and examined by me , laying in bed + OPERATIVE CULTURES, 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 PENDING CYTOLOGY Was able to tolerate - CPAP overnight CXR reviewed . 6 min walk test prior to discharge continue IS family at bedside- long discussion regarding his outpatient plan from pulmonary standpiont Case mgt to help arrange cppap if able upon DC REVIEW OF SYSTEMS: 12 point ROS reviewed with patient. Pertinent positives mentioned above. Otherwise negative. PHYSICAL EXAM: GENERAL: alert, weak, awake oriented x 3 HEENT: EOMI, Sclera non icteric, moist mucosa NECK: Supple, no JVD, trachea midline LUNGS: Clear breath sounds bilaterally. No wheezes HEART: Regular rate and rhythm. Normal S1 and S2, without murmurs ABD: Large body habitus EXT: No clubbing cyanosis or edema NEURO: Alert and oriented to person, follows commands Vital Signs (last 8hr) Date Time Temp Pulse Resp B/P (MAP) Pulse Ox O2 Delivery O2 Flow Rate FiO2 11/28/24 16:36 97.9 77 20 113/70 95 11/28/24 11:31 98.4 56 20 136/63 96 Room Air LABS: Hematology Labs: Test 11/28/24 09:31 Range/Units White Blood Count 8.4 4.8-10.8 K/uL Red Blood Count 3.76 L 4.50-6.20 MIL/uL Hemoglobin 11.2 L 14.0-18.0 g/dL Hematocrit 33.8 L 42-54 % Mean Corpuscular Volume 89.9 79-99 fL Mean Corpuscular Hemoglobin 29.8 27.0-33.0 pg Mean Corpuscular Hemoglobin Concent 33.1 32.0-36.0 g/dL Red Cell Distribution Width 12.7 11.0-15.5 % Platelet Count 161 130-400 K/uL Mean Platelet Volume 9.5 7.5-10.5 fL Immature Granulocyte % (Auto) 0.5 0-1 % Neutrophils (%) (Auto) 67.8 40.0-77.0 % Lymphocytes (%) (Auto) 20.9 L 21.0-51.0 % Monocytes (%) (Auto) 8.1 3.0-13.0 % Eosinophils (%) (Auto) 2.3 0.0-8.0 % Basophils (%) (Auto) 0.4 0.0-5.0 % Neutrophils # (Auto) 5.7 1.8-7.7 K/uL Lymphocytes # (Auto) 1.8 1.0-4.8 K/uL Monocytes # (Auto) 0.7 0.1-1.0 K/uL Eosinophils # (Auto) 0.19 0.00-0.70 K/uL Basophils # (Auto) 0.03 0.00-0.20 K/uL Absolute Immature Granulocyte (auto 0.04 0-1 K/uL Nucleated Red Blood Cells 0.0 0.0-0.19 % Chemistry Labs: Test 11/28/24 09:31 Range/Units Sodium Level 137 136-145 mmol/L Potassium Level 3.9 3.5-5.1 mmol/L Chloride Level 104 101-111 mmol/L Carbon Dioxide Level 31 21-32 mmol/L Blood Urea Nitrogen 17 7-18 mg/dL Creatinine 0.7 0.5-1.3 mg/dL Glomerular Filtration Rate Calc 129 >90 mL/min Random Glucose 116 H 70-105 mg/dL Total Calcium 8.3 L 8.5-10.1 mg/dL Magnesium Level 1.70 L 1.80-2.40 mg/dL Total Bilirubin 0.2 0.2-1.0 mg/dL Aspartate Amino Transf (AST/SGOT) 12 10-37 U/L Alanine Aminotransferase (ALT/SGPT) 31 12-78 U/L Alkaline Phosphatase 81 50-136 U/L Total Protein 5.7 L 6.0-8.3 g/dL Albumin 2.6 L 3.5-5.0 g/dL Coagulation Labs: Test 11/28/24 09:32 Range/Units Prothrombin Time 11.1 9.6-11.6 SEC Prothromb Time International Ratio 1.05 0.85-1.15 Activated Partial Thromboplast Time 29.2 26.3-35.5 SEC DIAGNOSTICS / RADIOLOGY RESULTS: [ ] PLAN NEURO: Minimize central acting medications as possible. Maintain fall precautions, adequate lighting during the day PULMONARY: Supplemental 02 as needed. Maintain aspiration precautions at all times CARDIOVASCULAR: Follow hemodynamics. Vital signs per facility protocol GI & NUTRITION: Continue with nutritional support. Continue stool softeners and laxatives as needed. KIDNEYS & ELECTROLYTES: Strict monitoring of intake, output and overall fluid balance. Avoid nephrotoxic medications to the extent possible. Medications to be dosed according to renal function. Monitor electrolytes and replace as needed ENDOCRINE: Maintain blood glucose between 100-180 at all times. Hypoglycemia protocol in place INFECTIOUS DISEASE: Trend temperature, WBC and procalcitonin level Follow cultures, deescalate antibiotics as soon as possible. Panculture if new onset fever ONCOLOGY/HEMATOLOGY/COAGULATION: Monitor for s/s of bleeding Monitor hemoglobin, coagulation studies as needed SKIN: Pressure ulcer prevention per facility protocol Specialty mattress ORTHO/REHAB: Continue PT/OT Prophylaxis: Continue GI and DVT prophylaxis Code Status: Full Resuscitation Disposition: TBD Other: Total patient care time exceeds 35 minutes excluding all procedures. JOEL HERNANDEZ Nov 28, 2024 17:13
[2024-11-29] VITALS (10 sets, daily range): BP systolic 102–134; BP diastolic 47–81; PULSE 55–105; RESP 18–29; TEMP 98.1–98.3; O2SAT 94–100
--- NOTE | 2024-11-29 07:55 | CONS ---
INFECTIOUS DISEASE CONSULTATION NOTE DATE OF SERVICE: 11/28/2024 REQUESTING PHYSICIAN: Denisha Wallace NP REASON FOR CONSULTATION: Sepsis, nonreactive ulcers. HISTORY OF PRESENT ILLNESS: This is a 29-year-old male with morbid obesity and gastritis, who originally presented to the hospital with rectal pain. The patient's symptoms started few days prior to presentation. The patient also has some fever with T-max of 99.5. CT of the abdomen and pelvis was done, shows the patient to have a 5.1 cm anal mass. The patient was taken to surgery with incision and drainage. The patient found to have possible necrotic thigh with abscess. Tissue culture obtained on multiple organisms including Enterococcus faecalis, E. coli, and Peptostreptococcus. The patient has been placed on vancomycin and Zosyn. PAST MEDICAL HISTORY: * Morbid obesity. * Gastritis. * Tonsillitis. PAST SURGICAL HISTORY: Tonsillectomy. ALLERGIES: No known drug allergy. CURRENT MEDICATIONS: Include: * Vancomycin. * Zosyn. * Thiamine. * Zofran. SOCIAL HISTORY: No alcohol, tobacco or illicit drug use. FAMILY HISTORY: Noncontributory. REVIEW OF SYSTEMS: Greater than 10 systems were reviewed, negative except as documented above. PHYSICAL EXAMINATION: GENERAL: Young male, awake. VITAL SIGNS: Temperature 97.5, pulse 83, respiratory rate 20. EYES: No icterus. Pupils equal and reactive. HENT: No oral thrush seen. Moist oral mucosa. NECK: Supple, no JVD or thyromegaly. LUNGS: Good air entry. No rales, no rhonchi. CARDIOVASCULAR: S1, S2 regular. No murmur heard. ABDOMEN: Morbidly obese, soft, nontender. Bowel sound is present. CENTRAL NERVOUS SYSTEM: Awake, alert, oriented x 3. No focal deficits. SKIN: No rashes, no itchiness. LYMPHATIC: No peripheral lymphadenopathy. BACK: No deformity, no pressure ulcer. MUSCULOSKELETAL: No joint swelling, erythema or tenderness. LABORATORY DATA: Sodium 137, potassium 3.9, BUN 17, creatinine 0.7. WBC 8.4, hemoglobin 11.2, platelets 161. A set of wound cultures is growing: * Peptostreptococcus. * Enterococcus faecalis. * E. coli. RADIOLOGY: CT of the abdomen and pelvis results reviewed. ASSESSMENT: A 29-year-old male with morbid obesity, fever. CURRENT PROBLEMS: Include: * Sepsis. * Rectal abscess. * Polymicrobial infection. * Morbid obesity. PLAN: * Discontinue vancomycin. * Continue cefepime. * Continue wound care. * Continue pain management. * Continue nutritional support. * Monitor electrolytes. * The patient will be followed up closely. Thank you for allowing me to participate in the care of this patient. TID: [id number] RECEIPT: [id number]
--- NOTE | 2024-11-29 08:24 | PN ---
[facility] PROGRESS NOTE Date of Service: Nov 29, 2024 Time of Service: 08:18 SUBJECTIVE: [ ] 11/25/24 patient was seen examined on the medical floor. Case discussed with the RN. He is doing better though has lot of pain. He denies nausea vomiting 11/26/24 the patient pod 1 recuperating well, cultures were obtained and pathology specimen was sent. The patient will need wound alf Health APS case management sent a referral. DR Kirby Salas MD taught family on wound care. no fevers, no chills reported. 11/28/23 we continue to wait for intraoperative cultures. Patient has been afebrile patient was taught on wound care patient is home health has been approved. So far no growth on wound cultures pathology report of lesion also pending we will follow with oncologists three weeks post discharge. 11/28/24 patient recuperating well. Reports having discomfort at incision site. No fevers no chills. Intraoperative cultures positive Gram-negative E coli and Enterococcus faecalis Peptostreptoccus Prevoti ID for antibiotics stewardship recommendations. 11/29/24 patient was seen by infectious disease patient will need IV antibiotics upon discharge patient has midline. We will wait for his final recommendations. REVIEW OF SYSTEMS CONSTITUTIONAL: Denies fevers, chills, or night sweats. No unintentional weight loss reported. NEUROLOGICAL: Denies headache, amaurosis fugax, motor weakness, sensory deficit, vertigo/spinning sensation, gait abnormalities, or tremors. ENT: No hearing loss, otalgia, otorrhea, rhinitis, rhinorrhea, hoarseness, or sore throat. CARDIOVASCULAR: Denies any exertional angina, dyspnea on exertion, orthopnea, paroxysmal nocturnal dyspnea, palpitations, life-threatening arrhythmias, claudication. PULMONARY: Denies any shortness of breath, cough, phlegm/sputum, hemoptysis, pleuritic chest pain. SLEEP: Denies morning headaches, daytime somnolence or napping. Denies difficulty falling asleep, staying asleep, waking from sleep. Denies knowledge of snoring. GASTROINTESTINAL: Tenesmus, rectal pain GENITOURINARY: Denies frequency, urgency, nocturia, hematuria or incontinence (Storage/Irritative symptoms.) Low urinary stream, straining to void, urinary intermittency or hesitancy, splitting of the voiding stream, terminal dribbling. ENDOCRINOLOGIC: Denies polyuria, polydipsia, polyphagia or heat/cold intolerances. HEMATOLOGIC: Denies thrombophilia/previous clots, or coagulopathy/bleeding disorders. ONCOLOGIC: Denies personal history of malignancy. DERMATOLOGIC: Denies rashes or pruritus. PSYCHIATRIC: Denies any suicidal or homicidal ideation. Denies hallucinations. PHYSICAL EXAM GENERAL APPEARANCE: The patient is awake, alert, and oriented, in no acute cardiopulmonary distress. Patient is morbidly obese NEUROLOGICAL: Cranial nerves II-XII grossly intact. Motor is 5/5 in bilateral upper and lower extremities proximal to distal. No sensory deficits. HEENT: Face is symmetric. Pupils are equal and reactive. Extraocular movements are intact. NECK: Supple. No JVD. No thyromegaly. No submental, submandibular, pre- /postauricular, occipital or supraclavicular lymphadenopathy. CHEST: Normal chest expansion. No Telemetry. LUNGS: Absence of any rales, rhonchi or any wheezing. CARDIOVASCULAR: Regular. S1 and S2 normal. No appreciable rubs, murmurs or gallops. ABDOMEN: Soft, nontender, and nondistended. There is no rebound, voluntary guarding, or rigidity. : Deferred. No Rabago. EXTREMITIES: Non-edematous and not cyanotic. No clubbing. Good capillary refill. SKIN: No skin breakdown. Vital Signs (last 8hr) Date Time Temp Pulse Resp B/P (MAP) Pulse Ox O2 Delivery O2 Flow Rate FiO2 11/29/24 07:41 58 18 N/A Room Air 21 11/29/24 04:00 98.2 55 20 126/65 99 Room Air 11/29/24 01:44 63 29 28 LABS: Laboratory: Test 11/28/24 20:05 11/28/24 09:32 11/28/24 09:31 Range/Units Vancomycin Level Trough 3.2 #L 10.0-20.0 UG/ML Prothrombin Time 11.1 9.6-11.6 SEC Prothromb Time International Ratio 1.05 0.85-1.15 Activated Partial Thromboplast Time 29.2 26.3-35.5 SEC White Blood Count 8.4 4.8-10.8 K/uL Red Blood Count 3.76 L 4.50-6.20 MIL/uL Hemoglobin 11.2 L 14.0-18.0 g/dL Hematocrit 33.8 L 42-54 % Mean Corpuscular Volume 89.9 79-99 fL Mean Corpuscular Hemoglobin 29.8 27.0-33.0 pg Mean Corpuscular Hemoglobin Concent 33.1 32.0-36.0 g/dL Red Cell Distribution Width 12.7 11.0-15.5 % Platelet Count 161 130-400 K/uL Mean Platelet Volume 9.5 7.5-10.5 fL Immature Granulocyte % (Auto) 0.5 0-1 % Neutrophils (%) (Auto) 67.8 40.0-77.0 % Lymphocytes (%) (Auto) 20.9 L 21.0-51.0 % Monocytes (%) (Auto) 8.1 3.0-13.0 % Eosinophils (%) (Auto) 2.3 0.0-8.0 % Basophils (%) (Auto) 0.4 0.0-5.0 % Neutrophils # (Auto) 5.7 1.8-7.7 K/uL Lymphocytes # (Auto) 1.8 1.0-4.8 K/uL Monocytes # (Auto) 0.7 0.1-1.0 K/uL Eosinophils # (Auto) 0.19 0.00-0.70 K/uL Basophils # (Auto) 0.03 0.00-0.20 K/uL Absolute Immature Granulocyte (auto 0.04 0-1 K/uL Nucleated Red Blood Cells 0.0 0.0-0.19 % Sodium Level 137 136-145 mmol/L Potassium Level 3.9 3.5-5.1 mmol/L Chloride Level 104 101-111 mmol/L Carbon Dioxide Level 31 21-32 mmol/L Blood Urea Nitrogen 17 7-18 mg/dL Creatinine 0.7 0.5-1.3 mg/dL Glomerular Filtration Rate Calc 129 >90 mL/min Random Glucose 116 H 70-105 mg/dL Total Calcium 8.3 L 8.5-10.1 mg/dL Magnesium Level 1.70 L 1.80-2.40 mg/dL Total Bilirubin 0.2 0.2-1.0 mg/dL Aspartate Amino Transf (AST/SGOT) 12 10-37 U/L Alanine Aminotransferase (ALT/SGPT) 31 12-78 U/L Alkaline Phosphatase 81 50-136 U/L Total Protein 5.7 L 6.0-8.3 g/dL Albumin 2.6 L 3.5-5.0 g/dL Current Medications Medications (Trade) Dose Ordered Sig/Janes Route PRN Reason Start Time Stop Time Status Last Admin Dose Admin Acetaminophen (TYLenol 325MG TAB) 650 mg Q6H PRN PO MILD PAIN (1-3) 11/24/24 18:00 12/24/24 17:59 11/24/24 22:26 650 MG Albuterol (DUOneb) 1 udvial Q6H PRN IH SHORTNESS OF BREATH 11/24/24 18:00 12/24/24 17:59 11/24/24 23:33 1 UDVIAL Budesonide (Pulmicort 0.5 Mg/2ml) 0.5 mg BIDRESP IH 11/24/24 18:00 12/24/24 17:59 11/28/24 19:45 0.5 MG Enoxaparin Sodium (Lovenox) 40 mg DAILY SQ 11/25/24 13:00 12/25/24 12:59 11/28/24 08:01 40 MG Hydromorphone HCl (DiLAUDid 1MG INJ) 1 mg Q3H3 PRN IVP SEVERE PAIN (7-10) 11/25/24 12:00 11/25/24 20:18 DC Hydromorphone HCl (DiLAUDid 1MG INJ) 1 mg Q3H3 PRN IVP SEVERE PAIN (7-10) 11/25/24 20:30 11/30/24 20:29 11/26/24 16:46 1 MG Ketorolac Tromethamine (toRADol) 30 mg Q6H IVP 11/25/24 12:00 11/28/24 11:27 DC 11/28/24 00:17 30 MG Lactated Ringer's 1,000 ml @ 75 mls/hr [id number] IV 11/24/24 18:00 11/25/24 20:37 DC 11/25/24 08:22 75 MLS/HR Lorazepam (AtiVAN) 0.25 mg ONCE IVP 11/26/24 19:30 11/26/24 23:30 DC Morphine Sulfate (morPHINE 2MG SYG) 2 mg Q6H PRN IVP SEVERE PAIN (7-10) 11/24/24 18:00 11/25/24 11:45 DC 11/25/24 08:19 2 MG Ondansetron HCl (zoFRAN 4MG INJ) 4 mg Q6H PRN IVP NAUSEA/VOMITING 11/24/24 18:00 12/24/24 17:59 Oxycodone/ Acetaminophen (perCOCET) 1 tab Q4H PRN PO MODERATE PAIN (4-6) 11/25/24 20:30 12/02/24 20:29 11/28/24 11:57 1 TAB Pantoprazole Sodium (PROTonix 40MG INJ) 40 mg Q24H IVP 11/24/24 18:00 12/24/24 17:59 11/28/24 17:43 40 MG Piperacillin Sod/ Tazobactam Sod (Zosyn 3.375gm+NS 50ml) 3.375 gm Q8H IVPB 11/25/24 00:30 11/27/24 18:18 DC 11/27/24 10:08 3.375 GM Piperacillin Sod/ Tazobactam Sod (Zosyn 3.375gm+NS 50ml) 3.375 gm Q8H IVPB 11/27/24 23:00 12/07/24 22:59 11/28/24 23:13 3.375 GM Vancomycin HCl 250 ml @ 125 mls/hr Q8H IV 11/26/24 20:00 11/27/24 14:08 DC 11/27/24 14:03 125 MLS/HR Vancomycin HCl 250 ml @ 125 mls/hr Q8H IV 11/27/24 22:30 11/27/24 20:12 DC Vancomycin HCl 250 ml @ 125 mls/hr Q8H IV 11/28/24 05:00 11/28/24 12:35 DC 11/28/24 05:17 125 MLS/HR Vancomycin HCl (Vancomycin Protocol) 1 each AD IV 11/26/24 10:30 11/28/24 12:35 DC Vancomycin HCl (Vancomycin 1g/ 250ml Kit) 1 gm Q12H IV 11/26/24 10:30 11/26/24 10:17 DC DIAGNOSTICS / RADIOLOGY: [ ] ASSESSMENT: Acute respiratory failure with hypoxia. Requiring oxygen supplemental POA sepsis secondary to perirectal abscess POA status post I&D POA gram negative wound cultures: enterococcus faecalis and E coli Anorectal mass, POA Rectal tenesmus, POA Leukocytosis, POA Morbid obesity, POA electrolytes derangement: hypomagnesemia Hepatic steatosis, POA Untreated obstructive sleep apnea, POA History of gastritis, POA History of seasonal allergies, POA PLAN: Admit: Surgical floor condition: Fair Status: Full code IVF: [facility]-[employer] Consult[employer] general surgeon personal injury law specialist, elevator serviceman; and ID intraoperative cultures with gram negative Enterococcus Faecalis and Ecoli ID consulted for Abt's recommendations. Zosyn IV mid line placement pending, good lyssa. Antibiotics: Zosyn 3.375 g IV every8 hours Status post I&D perirectal abscess we will follow postoperative recommendations per surgeon. Continue local wound care dressing per DR Kirby Turner MD: as directed family was taught already Labs cbc, cmp, mag+ Replace electrolytes as needed as per protocol to keep potassium above 4.0 magnesium 2.0. Continues with CPAP overnight. Continue bronchodilators. And Pulmicort inhaler. PRN: MEDICATIONS Tylenol 650 mg po every 4 hrs for fever zofran 4 mg IV every 6 hrs for n/v bowel regiment: lactulose 20 gm PO BID PRN constipation Pain management: Toradol IV q6 hrs as needed Dilaudid1 mg for severe pain as needed, Percocet one tablet every 4 hours as needed for moderate pain. Supportive measures: DVT ppx, GI ppx all questions answered case management: Patient will need to follow-up with wound care clinic upon discharge family already has been taught waiting for good lyssa infusion and midline pending, the patient will need to follow up with [facility] 3 wks; Supervising MD: Dr. Latif c/d This document was generated in part using voice recognition software, occasional wrong word or sound alike substitutions may have occurred due to the inherent limitations of voice recognition software. Read the chart carefully and recognize using context, where the substitutions have occurred. Although every effort was made to edit the content, dray driver and typing errors may occur ATTESTATION BY PHYSICIAN I have seen and examined the patient. I reviewed the documentation, medical decision making, and treatment plan as noted by the mid-level provider above. I agree with the findings and plan of care. JASON LATIF MD, ELIZABETH NP Nov 29, 2024 08:24
[2024-11-29] MEDS ORDERED: PoTASSium chl 10% ELIXIR 20MEQ 20 MEQ/15 ML UDCUP PO PRN (08:30)
[2024-11-29] MEDS ORDERED: MAGNESIUM 2GM PREMIX 50ML 50 ML IV SCH (08:30)
[2024-11-29] MEDS ORDERED: PoTASSium chloRIDE 20MEQ/100ML 100 ML IV PRN (08:30)
[2024-11-29] MEDS ORDERED: PoTASSium chloRIDE 20MEQ ER 20 MEQ ERTAB PO PRN (08:30)
[2024-11-29 08:59] LABS: BASOPHILS # (AUTO) 0.04 K/uL (0.00-0.20); BASOPHILS % (AUTO) 0.5 % (0.0-5.0); EOSINOPHILS # (AUTO) 0.22 K/uL (0.00-0.70); EOSINOPHILS % (AUTO) 2.7 % (0.0-8.0); HEMATOCRIT 35.4 % (42-54); IMMATURE GRANULOCYTE ABSOLUTE 0.06 K/uL (0-1); LYMPHOCYTES # (AUTO) 1.8 K/uL (1.0-4.8); MEAN CORPUSCULAR HEMOGLOBIN 28.7 pg (27.0-33.0); MEAN CORPUSCULAR HGB CONC 32.2 g/dL (32.0-36.0); MEAN CORPUSCULAR VOLUME 89.2 fL (79-99); MONOCYTES # (AUTO) 0.6 K/uL (0.1-1.0); MONOCYTES % (AUTO) 7.9 % (3.0-13.0); NEUTROPHILS # (AUTO) 5.3 K/uL (1.8-7.7); NEUTROPHILS % (AUTO) 66.2 % (40.0-77.0); PLATELET COUNT (AUTO) 159 K/uL (130-400); RED BLOOD CELL COUNT(AUTO) 3.97 MIL/uL (4.50-6.20); RED CELL DISTRIBUTION WIDTH 12.3 % (11.0-15.5); WHITE BLOOD COUNT (AUTO) 8.1 K/uL (4.8-10.8)
[2024-11-29 09:08] LABS: CREATININE 0.8 mg/dL (0.5-1.3); POTASSIUM 3.7 mmol/L (3.5-5.1)
[2024-11-29 09:12] LABS: ALBUMIN 2.7 g/dL (3.5-5.0); BILIRUBIN,TOTAL 0.2 mg/dL (0.2-1.0); MAGNESIUM 1.7 mg/dL (1.80-2.40)
--- NOTE | 2024-11-29 12:00 | NUR ---
MIDLINE INSERTION RG PICCS MA[employer]ER [employer] WATERWORKS AT BEDSIDE TO PLACE LINE. MIDLINE INSERTED INTO RIGHT UPPER ARM, BASILIC VEIN. 2LUMEN 5FR. 35CM MID ARM CIRCUMFERENCE. PATIENT TOLERATED PROCEDURE WELL. REFER TO PICC/MIDLINE INSERTION TIME OUT AND DOCUMENTATION RECORD FORM PLACED INTO PATIENTS CHART.
[2024-11-29] MEDS: MAGNESIUM 2GM PREMIX 50ML 50 ML IV PRN (12:55)
--- NOTE | 2024-11-29 13:56 | PN ---
This is a 29-year-old male with underlying history of morbid obesity, gastritis who presented to the ER for further evaluation of tenesmus, rectal pain. Symptoms have been ongoing since the past six days, patient had presented to the ER yesterday with similar complaints and had a CT abdomen done without contrast. Diagnosis of constipation was made and patient was given lactulose for further management. Patient continues to have significant pain especially when lying supine or using the restroom. Denies any hematochezia. He has been having subjective malaise and chills at home. Patient does report having family history of anal fissures in his brothers. Patient denies any previous history of malignancy. He does have symptoms of sleep apnea and is supposed to have outpatient sleep study done. On presentation to the hospital, patient was noted to have T-max of 99.5 F, heart rate of 91, blood pressure of 145/84. [place] [address], hemoglobin of 13.5, platelet count of 707991. BMP remarkable for sodium of 136, potassium 4.0, creatinine of 0.8 and normal liver enzymes. A CT abdomen pelvis with IV contrast was performed which showed findings of 5.1 cm soft tissue mass noted near the anus. Consultation has been requested with General surgery. We will have Medical Oncology see this patient as well. Patient will receive IV fluids and broad- spectrum antibiotics with IV Zosyn. Patient will be placed on bowel rest. We will have pulmonology see this patient given underlying untreated obstructive sleep apnea. Patient is recovering very well. There are possible plan for discharge. We do not have the pathology report yet. PHYSICAL EXAM GENERAL APPEARANCE: The patient is awake, alert, and oriented, in no acute cardiopulmonary distress. Patient is morbidly obese NEUROLOGICAL: Cranial nerves II-XII grossly intact. Motor is 5/5 in bilateral upper and lower extremities proximal to distal. No sensory deficits. HEENT: Face is symmetric. Pupils are equal and reactive. Extraocular movements are intact. NECK: Supple. No JVD. No thyromegaly. No submental, submandibular, pre- /postauricular, occipital or supraclavicular lymphadenopathy. CHEST: Normal chest expansion. No Telemetry. LUNGS: Absence of any rales, rhonchi or any wheezing. CARDIOVASCULAR: Regular. S1 and S2 normal. No appreciable rubs, murmurs or gallops. ABDOMEN: Soft, nontender, and nondistended. There is no rebound, voluntary guarding, or rigidity. : Deferred. No [place]. EXTREMITIES: Non-edematous and not cyanotic. No clubbing. Good capillary refill. SKIN: No skin breakdown. Assessment 1. 5.1 cm enhancing soft tissue mass near the anus Without any rectal or perirectal abnormality 2. Hepatitis C cirrhosis 3. Morbidly obese 4. Leukocytosis Plan 1. The patient already have surgery done for the anal mass. We will follow-up with the result of the pathology. 2. If this is a benign lesion this patient should not follow-up with me. But if the lesion is malignant then this patient could follow-up with me. Will review 3. Continue care as per surgery for now. 4. Continue antibiotic treatment as per infectious disease specialist. 5. If this patient discharged to follow-up with me in 3-4 Vitals/Labs Vital Signs Date Time Temp Pulse Resp B/P (MAP) Pulse Ox O2 Delivery O2 Flow Rate FiO2 11/29/24 08:00 98.1 65 20 102/63 98 Room Air 11/29/24 08:00 0 21 Laboratory Tests 11/29/24 08:51 Medications Current Medications Ketorolac Tromethamine 15 mg ONCE ONCE IM Last administered on 11/24/24at 08:01; Start 11/24/24 at 06:30; Stop 11/24/24 at 06:31; Status DC Morphine Sulfate 4 mg ONCE ONCE IM Last administered on 11/24/24at 08:02; Start 11/24/24 at 06:30; Stop 11/24/24 at 06:32; Status DC Polyethylene Glycol/ Electrolytes 4,000 ml ONCE ONCE PO Last administered on 11/24/24at 09:04; Start 11/24/24 at 09:00; Stop 11/24/24 at 09:01; Status DC Iohexol 35,000 mg STK-MED ONCE IV; Start 11/24/24 at 14:35; Stop 11/24/24 at 14:35; Status DC Piperacillin Sod/ Tazobactam Sod 3.375 gm ONCE ONCE IV Last administered on 11/24/24at 16:28; Start 11/24/24 at 16:30; Stop 11/24/24 at 16:31; Status DC Lactated Ringer's 1,000 ml @ 75 mls/hr [id number] IV Last administered on 11/25/24at 08:22; Start 11/24/24 at 18:00; Stop 11/25/24 at 20:37; Status DC Morphine Sulfate 2 mg Q6H PRN IVP Last administered on 11/25/24at 08:19; Start 11/24/24 at 18:00; Stop 11/25/24 at 11:45; Status DC Pantoprazole Sodium 40 mg Q24H IVP Last administered on 11/28/24at 17:43; Start 11/24/24 at 18:00; Stop 12/24/24 at 17:59 Piperacillin Sod/ Tazobactam Sod 3.375 gm Q8H IVPB Last administered on 11/27/24at 10:08; Start 11/25/24 at 00:30; Stop 11/27/24 at 18:18; Status DC Acetaminophen 650 mg Q6H PRN PO Last administered on 11/24/24at 22:26; Start 11/24/24 at 18:00; Stop 12/24/24 at 17:59 Ondansetron HCl 4 mg Q6H PRN IVP; Start 11/24/24 at 18:00; Stop 12/24/24 at 17:59 Budesonide 0.5 mg BIDRESP IH Last administered on 11/28/24at 19:45; Start 11/24/24 at 18:00; Stop 12/24/24 at 17:59 Albuterol 1 udvial Q6H PRN IH Last administered on 11/24/24at 23:33; Start 11/24/24 at 18:00; Stop 12/24/24 at 17:59 Enoxaparin Sodium 40 mg DAILY SQ Last administered on 11/29/24at 08:20; Start 11/25/24 at 13:00; Stop 12/25/24 at 12:59 Acetaminophen 1,000 mg ONCE ONCE IVPB; Start 11/24/24 at 22:30; Stop 11/24/24 at 22:28; Status DC Ketorolac Tromethamine 15 mg ONCE ONCE IV Last administered on 11/24/24at 22:45; Start 11/24/24 at 22:30; Stop 11/24/24 at 22:31; Status DC Hydromorphone HCl 1 mg Q3H3 PRN IVP; Start 11/25/24 at 12:00; Stop 11/25/24 at 20:18; Status DC Ketorolac Tromethamine 30 mg Q6H IVP Last administered on 11/28/24at 00:17; Start 11/25/24 at 12:00; Stop 11/28/24 at 11:27; Status DC Lidocaine HCl 100 mg STK-MED ONCE .ROUTE; Start 11/25/24 at 15:22; Stop 11/25/24 at 15:23; Status DC Succinylcholine Chloride 200 mg STK-MED ONCE .ROUTE; Start 11/25/24 at 15:22; Stop 11/25/24 at 15:23; Status DC Propofol 200 mg STK-MED ONCE IV; Start 11/25/24 at 15:22; Stop 11/25/24 at 15:23; Status DC Dexamethasone Sodium Phosphate 10 mg STK-MED ONCE .ROUTE; Start 11/25/24 at 15:22; Stop 11/25/24 at 15:23; Status DC Glycopyrrolate 1 mg STK-MED ONCE .ROUTE; Start 11/25/24 at 15:22; Stop 11/25/24 at 15:23; Status DC Neostigmine Methylsulfate 10 mg STK-MED ONCE IV; Start 11/25/24 at 15:22; Stop 11/25/24 at 15:23; Status DC Ondansetron HCl 4 mg STK-MED ONCE .ROUTE; Start 11/25/24 at 15:22; Stop 11/25/24 at 15:23; Status DC Rocuronium [place] 50 mg STK-MED ONCE .ROUTE; Start 11/25/24 at 15:23; Stop 11/25/24 at 15:23; Status DC Fentanyl Citrate 100 mcg STK-MED ONCE .ROUTE; Start 11/25/24 at 15:23; Stop 11/25/24 at 15:23; Status DC Midazolam HCl 2 mg STK-MED ONCE .ROUTE; Start 11/25/24 at 15:27; Stop 11/25/24 at 15:28; Status DC Piperacillin Sod/ Tazobactam Sod 50 ml @ As Directed STK-MED ONCE .ROUTE; Start 11/25/24 at 16:16; Stop 11/25/24 at 16:17; Status DC Propofol 200 mg STK-MED ONCE IV; Start 11/25/24 at 16:29; Stop 11/25/24 at 16:32; Status DC Ketamine HCl 50 mg STK-MED ONCE .ROUTE; Start 11/25/24 at 16:34; Stop 11/25/24 at 16:34; Status DC Famotidine 20 mg STK-MED ONCE IV; Start 11/25/24 at 16:41; Stop 11/25/24 at 16:42; Status DC Fentanyl Citrate 100 mcg STK-MED ONCE .ROUTE; Start 11/25/24 at 17:23; Stop 11/25/24 at 17:24; Status DC Cefazolin Sodium 1 gm STK-MED ONCE IRRIG Last administered on 11/25/24at 17:25; Start 11/25/24 at 17:25; Stop 11/25/24 at 17:53; Status DC Cefazolin Sodium 1 gm STK-MED ONCE .ROUTE; Start 11/25/24 at 17:38; Stop 11/25/24 at 17:40; Status DC Bupivacaine HCl 2.5 mg STK-MED ONCE IJ Last administered on 11/25/24at 17:40; Start 11/25/24 at 17:41; Stop 11/25/24 at 17:42; Status DC Lidocaine/ Epinephrine 20 ml STK-MED ONCE .ROUTE; Start 11/25/24 at 17:41; Stop 11/25/24 at 17:42; Status DC Ketorolac Tromethamine 30 mg STK-MED ONCE .ROUTE; Start 11/25/24 at 17:46; Stop 11/25/24 at 17:46; Status DC Ketorolac Tromethamine 60 mg STK-MED ONCE IM Last administered on 11/25/24at 17:40; Start 11/25/24 at 17:40; Stop 11/25/24 at 18:17; Status DC Acetaminophen 100 ml @ As Directed STK-MED ONCE .ROUTE; Start 11/25/24 at 18:16; Stop 11/25/24 at 18:16; Status DC Lidocaine/ Epinephrine 20 ml STK-MED ONCE IJ Last administered on 11/25/24at 17:40; Start 11/25/24 at 17:40; Stop 11/25/24 at 18:17; Status DC Oxycodone/ Acetaminophen 1 tab Q4H PRN PO Last administered on 11/28/24at 11:57; Start 11/25/24 at 20:30; Stop 12/02/24 at 20:29 Hydromorphone HCl 1 mg Q3H3 PRN IVP Last administered on 11/26/24at 16:46; Start 11/25/24 at 20:30; Stop 11/30/24 at 20:29 Vancomycin HCl 1 gm Q12H IV; Start 11/26/24 at 10:30; Stop 11/26/24 at 10:17; Status DC Vancomycin HCl 500 ml @ 250 mls/hr ONCE ONCE IV Last administered on 11/26/24at 14:04; Start 11/26/24 at 12:00; Stop 11/26/24 at 13:59; Status DC Vancomycin HCl 250 ml @ 125 mls/hr Q8H IV Last administered on 11/27/24at 14:03; Start 11/26/24 at 20:00; Stop 11/27/24 at 14:08; Status DC Vancomycin HCl 1 each AD IV; Start 11/26/24 at 10:30; Stop 11/28/24 at 12:35; Status DC Lorazepam 0.25 mg ONCE IVP; Start 11/26/24 at 19:30; Stop 11/26/24 at 23:30; Status DC Vancomycin HCl 250 ml @ 125 mls/hr Q8H IV; Start 11/27/24 at 22:30; Stop 11/27/24 at 20:12; Status DC Piperacillin Sod/ Tazobactam Sod 3.375 gm Q8H IVPB Last administered on 11/29/24at 08:19; Start 11/27/24 at 23:00; Stop 12/07/24 at 22:59 Vancomycin HCl 250 ml @ 125 mls/hr Q8H IV Last administered on 11/28/24at 05:17; Start 11/28/24 at 05:00; Stop 11/28/24 at 12:35; Status DC Docusate Sodium 100 mg ONCE ONCE PO Last administered on 11/28/24at 11:56; Start 11/28/24 at 11:30; Stop 11/28/24 at 11:31; Status DC Magnesium Sulfate 50 ml @ 0 mls/hr PROTOCOL IV; Start 3/10/25 at 08:30; Stop 11/29/24 at 08:24; Status DC Potassium Chloride 100 ml @ 100 mls/hr AD PRN IV; Start 11/29/24 at 08:30; Stop 12/29/24 at 08:29 Potassium Chloride 20 meq AD PRN PO; Start 11/29/24 at 08:30; Stop 12/29/24 at 08:29 Potassium Chloride 20 meq AD PRN PO; Start 11/29/24 at 08:30; Stop 12/29/24 at 08:29 Magnesium Sulfate 50 ml @ 0 mls/hr PROTOCOL PRN IV Last administered on 11/29/24at 12:55; Start 11/29/24 at 08:30; Stop 12/29/24 at 08:29 DANIELLE STEWART MD Nov 29, 2024 13:56
--- NOTE | 2024-11-29 15:44 | NUR ---
[facility] Consult: Patient assessed by wound healing team. See wound assessment. Assessment and recommendations provided to primary nurse. Education provided. Wound care done. Addendum: 11/29/24 at 1652 by PERRY KIM RN RN/ Amended: Links added.
--- NOTE | 2024-11-29 16:52 | PN ---
[facility] PROGRESS NOTE Date Patient Seen: Nov 29, 2024 Time of Visit: 16:50 Supervising Physician: SAVAGE CHEEMA Consulting Physician: Dr Murillo Outpatient Specialists: [ ] Inpatient Consults: PROBLEM LIST: Obstructive sleep apnea, POA Obesity hypoventilation syndrome, POA Morbid obesity, BMI of 58.4 Rectal mass, POA Hepatic steatosis, POA Leukocytosis, POA History of chronic bronchitis, asthma PLAN: Antibiotic management per INFECTIOUS DISEASE SPECIALIST POLYMICROBIAL WOUND, PENDING ARRANGEMENT WITH [facility] CPAP at night - outpatient sleep study once discharged DuoNeb q.6 as needed for shortness of breaths Keep head of bed above 30 Incentive spirometry Keep O2 saturation above 90% Rest of plan care of primary INTERVAL HISTORY: Patient was seen and examined by me , laying in bed toleraing PAP nocturnally CXR reviewed . 6 min walk test prior to discharge continue IS family at bedside- long discussion regarding his outpatient plan from pulmonary standpiont Case mgt to help arrange cppap if able upon DC PATIENT is EXTREMELY YOUNG, WE DISCUSSED LIFESTYLE MODIFICATIONS AND WEIGHT LOSS OPTIONS. FAMILY AT BEDSIDE DURING OUR CONVERSATION, HE SEEMED RECEPTIVE . REVIEW OF SYSTEMS: 12 point ROS reviewed with patient. Pertinent positives mentioned above. Otherwise negative. PHYSICAL EXAM: GENERAL: alert, weak, awake oriented x 3 HEENT: EOMI, Sclera non icteric, moist mucosa NECK: Supple, no JVD, trachea midline LUNGS: Clear breath sounds bilaterally. No wheezes HEART: Regular rate and rhythm. Normal S1 and S2, without murmurs ABD: Large body habitus EXT: No clubbing cyanosis or edema NEURO: Alert and oriented to person, follows commands LABS: Hematology Labs: Test 11/29/24 08:51 Range/Units White Blood Count 8.1 4.8-10.8 K/uL Red Blood Count 3.97 L 4.50-6.20 MIL/uL Hemoglobin 11.4 L 14.0-18.0 g/dL Hematocrit 35.4 L 42-54 % Mean Corpuscular Volume 89.2 79-99 fL Mean Corpuscular Hemoglobin 28.7 27.0-33.0 pg Mean Corpuscular Hemoglobin Concent 32.2 32.0-36.0 g/dL Red Cell Distribution Width 12.3 11.0-15.5 % Platelet Count 159 130-400 K/uL Mean Platelet Volume 9.3 7.5-10.5 fL Immature Granulocyte % (Auto) 0.7 0-1 % Neutrophils (%) (Auto) 66.2 40.0-77.0 % Lymphocytes (%) (Auto) 22.0 21.0-51.0 % Monocytes (%) (Auto) 7.9 3.0-13.0 % Eosinophils (%) (Auto) 2.7 0.0-8.0 % Basophils (%) (Auto) 0.5 0.0-5.0 % Neutrophils # (Auto) 5.3 1.8-7.7 K/uL Lymphocytes # (Auto) 1.8 1.0-4.8 K/uL Monocytes # (Auto) 0.6 0.1-1.0 K/uL Eosinophils # (Auto) 0.22 0.00-0.70 K/uL Basophils # (Auto) 0.04 0.00-0.20 K/uL Absolute Immature Granulocyte (auto 0.06 0-1 K/uL Nucleated Red Blood Cells 0.0 0.0-0.19 % Chemistry Labs: Test 11/29/24 08:51 Range/Units Sodium Level 137 136-145 mmol/L Potassium Level 3.7 3.5-5.1 mmol/L Chloride Level 103 101-111 mmol/L Carbon Dioxide Level 33 H 21-32 mmol/L Blood Urea Nitrogen 12 7-18 mg/dL Creatinine 0.8 0.5-1.3 mg/dL Glomerular Filtration Rate Calc 124 >90 mL/min Random Glucose 125 H 70-105 mg/dL Total Calcium 8.6 8.5-10.1 mg/dL Magnesium Level 1.70 L 1.80-2.40 mg/dL Total Bilirubin 0.2 0.2-1.0 mg/dL Aspartate Amino Transf (AST/SGOT) 14 10-37 U/L Alanine Aminotransferase (ALT/SGPT) 29 12-78 U/L Alkaline Phosphatase 83 50-136 U/L Total Protein 6.0 6.0-8.3 g/dL Albumin 2.7 L 3.5-5.0 g/dL Coagulation Labs: Test 11/28/24 09:32 Range/Units Prothrombin Time 11.1 9.6-11.6 SEC Prothromb Time International Ratio 1.05 0.85-1.15 Activated Partial Thromboplast Time 29.2 26.3-35.5 SEC DIAGNOSTICS / RADIOLOGY RESULTS: [ ] PLAN NEURO: Minimize central acting medications as possible. Maintain fall precautions, adequate lighting during the day PULMONARY: Supplemental 02 as needed. Maintain aspiration precautions at all times CARDIOVASCULAR: Follow hemodynamics. Vital signs per facility protocol GI & NUTRITION: Continue with nutritional support. Continue stool softeners and laxatives as needed. KIDNEYS & ELECTROLYTES: Strict monitoring of intake, output and overall fluid balance. Avoid nephrotoxic medications to the extent possible. Medications to be dosed according to renal function. Monitor electrolytes and replace as needed ENDOCRINE: Maintain blood glucose between 100-180 at all times. Hypoglycemia protocol in place INFECTIOUS DISEASE: Trend temperature, WBC and procalcitonin level Follow cultures, deescalate antibiotics as soon as possible. Panculture if new onset fever ONCOLOGY/HEMATOLOGY/COAGULATION: Monitor for s/s of bleeding Monitor hemoglobin, coagulation studies as needed SKIN: Pressure ulcer prevention per facility protocol Specialty mattress ORTHO/REHAB: Continue PT/OT Prophylaxis: Continue GI and DVT prophylaxis Code Status: Full Resuscitation Disposition: TBD Other: Total patient care time exceeds 35 minutes excluding all procedures. JOEL HERNANDEZ Nov 29, 2024 16:52
--- NOTE | 2024-11-29 17:20 | DS ---
Discharge Summary Hospital Course Summary: 11/25/24 patient was seen examined on the medical floor. Case discussed with the RN. He is doing better though has lot of pain. He denies nausea vomiting 11/26/24 the patient pod 1 recuperating well, cultures were obtained and pathology specimen was sent. The patient will need wound [facility] case management sent a referral. DR Kirby Salas MD taught family on wound care. no fevers, no chills reported. 11/28/23 we continue to wait for intraoperative cultures. Patient has been afebrile patient was taught on wound care patient is home health has been approved. So far no growth on wound cultures pathology report of lesion also pending we will follow with oncologists three weeks post discharge. 11/28/24 patient recuperating well. Reports having discomfort at incision site. No fevers no chills. Intraoperative cultures positive Gram-negative E coli and Enterococcus faecalis Peptostreptoccus Prevoti ID for antibiotics stewardship recommendations. 11/29/24 patient was seen by infectious disease patient will need IV antibiotics upon discharge and midline. the patient insurance approved [facility] for fpc IV Zosyn as directed by DR Reyes. The patient will be discharged with Midline. Wound care as directed by DR Kirby Turner: iodoform packing family was instructed on wound care./ as directed the [facility]. the patient was instructed to follow up with Surgeon one week. The patient on this admission was on Cpap: followed by DR Cross. will follow up 1-2 wk for sleep study. the patient is hemodynamically stable. Manager Laundry(s): REASON: rectal pain ORDERING PHYSICIAN: PARRIS PEREZ MD PROCEDURE: ABD PEL W - CT ABDOMEN/PELVIS W/CONTRAST CT ABDOMEN WITH CONTRAST. CT PELVIS WITH CONTRAST INDICATION: Rectal pain for 4 days TECHNIQUE: Routine transaxial images using 5 mm slice thickness were obtained after the intravenous infusion of 100 mL of Omnipaque 350 without adverse effects. Oral contrast was not administered. Rectal contrast was not administered. Coronal and sagittal reformatted images acquired for interpretation. CT was performed with one or more of the following dose reduction techniques: Automated exposure control, adjustment of the mA and/or kV according to patient size, or use of iterative reconstruction technique. COMPARISON: 11/23/2024 FINDINGS: Examination is slightly limited secondary to patient body habitus, and gantry artifact noted. ABDOMEN: Heart size is normal. Visible lung bases are clear. The liver is normal in size and smooth in contour without lesions or biliary duct dilation. Diffuse low attenuation of the liver parenchyma suggests fatty change. The spleen is normal in size without lesions. The gallbladder appears normal. The pancreas appears normal without pancreatic duct dilation. The adrenal glands appear normal. Subcentimeter simple cyst at the mid to lower portion of the right kidney. Left kidney appears normal. Cortical nephrograms are symmetric and normal in appearance bilaterally. No evidence for intra-abdominal free air or organized fluid collection. No retrocrural, intraabdominal, or retroperitoneal lymphadenopathy identified. No aortic aneurysmal dilation or dissection identified. PELVIS: No evidence for free air or organized pelvic fluid collection. No significant pelvic adenopathy detected. Visualized small and large bowel loops appear unremarkable. Terminal ileum appears normal. The appendix appears normal. No evidence for any rectal or perirectal abnormality. Irregular 5.1 cm soft tissue mass suspected near the anus. The urinary bladder appears unremarkable. Visible osseous structures are intact. IMPRESSION: Limitations as reported. 1. Irregular 5.1 cm enhancing soft tissue mass near the anus without any rectal or perirectal abnormality. 2. Hepatic steatosis. Procedure(s): RUN DATE: 11/28/24 [facility] PAGE 1 RUN TIME: 0831 [address] [address], [place] [address] Department of Laboratories [facility] # [id number] Material Preparation Worker: Kalpana Patrick DO Specimen Report PATIENT: INGRID CONTRERAS ACCT: [id number] LOC: 3A U: [id number] AGE/SX: 29/M ROOM: [facility] RE11/24/[address]: MESFIN LOYD MD : 1995 BED: 1 DIS: STATUS: ADM IN TLOC: -- SPEC: [id number] FELISHA: 11/25/24 STATUS: COMP REQ: [id number] RECD: 11/25/[address] [facility] [address]: ANNE MAHAJAN MD SOURCE: PERIRECTAL ENTR: 11/25/[address]: BELLA ELLIOTT MD [facility]: ABSCESS TADEO FLYNN,KASHIF LOYD,MESFIN CISNEROS,DANIELLE DUMONT,[facility] ORDERED: SANDRA CULTURE Procedure Result Tavares Date-Time ANAEROBIC CULTURE Final 11/28/24-08 MRL COLONY DESCRIPTION: REPORT 1: NO ANAEROBES AT 24-35 HOURS; STUDIES TO CONTINUE REPORT 2: POSSIBLE ANAEROBE ISOLATED GRAM POSITIVE COCCI IDENTIFICATION TO FOLLOW BETA LACTAMASE NEGATIVE NO FURTHER WORK-UP DONE PEPTOSTREPTOCOCCUS PREVOTII Test(s) performed by: [facility] [address], [place] [address] RUN DATE: 11/28/24 [facility] PAGE 1 RUN TIME: 3877 [address] [address], [place] [address] Department of Laboratories CLIA # [id number] Material Preparation Worker: Kalpana Patrick DO Specimen Report PATIENT: INGRID CONTRERAS ACCT: [id number] LOC: [facility] U: [id number] AGE/SX: 29/M ROOM: [facility] RE11/24/[address]: MESFIN LOYD MD : 1995 BED: 1 DIS: STATUS: ADM IN TLOC: SPEC: [id number] FELISHA: 11/25/24-1405 STATUS: COMP REQ: [id number] RECD: 11/25/24-[address]: ANNE MAHAJAN MD SOURCE: PERIRECTAL ENTR: 11/25/24-[address]: BELLA ELLIOTT MD SPDESC: KASHIF JACKSON MD, ASHISH MD SARHILL, [facility]EL [facility] ORDERED: AEROBIC CULTURE Procedure Result Tavares Date-Time AEROBIC CULTURE Final 11/28/24-0739 MRL COLONY DESCRIPTION: REPORT 1: 1+ GRAM NEGATIVE RODS IDENTIFICATION AND SENSITIVITY TO FOLLOW REPORT 2: 1+ GRAM POSITIVE COCCI IN CHAINS POSSIBLE ENTEROCOCCUS SPECIES . IDENTIFICATION AND SENSITIVITY TO FOLLOW NO FURTHER WORK-UP DONE ENTEROCOCCUS FAECALIS ESCHERICHIA COLI E FAECALIS E COLI M.I.C. RX M.I.C. RX --------- ---- --------- ---- AMPICILLIN <=2 S >16 R AZTREONAM <=4 S CEFAZOLIN <=2 S CEFTAZIDIME/AVIBACTAM <=8 S GENTAMICIN <=2 S LEVOFLOXACIN <=0.5 S VANCOMYCIN 1 S AMPICILLIN/SULBACTAM 16/8 I GENTAMICIN Synergy Screen >500 R MEROPENEM <=1 S PENICILLIN 2 S PIPERACILLIN/TAZOBACTAM <=8 S STREPTOMYCIN Synergy Screen <=1000 S TRIMETHOPRIM/SUFLAMETHOXAZOLE <=2/38 S ENTEROCOCCUS FAECALIS: POSITIVE COMBO 34 Streptomycin Synergy Screen S Gentamicin Synergy Screen R @ [facility] Test Performed at: [facility] Aries SBarb Rios Tae, [place], [place] Medical Housemaid: Aravind Acuna D.O. RUN DATE: 11/28/24 [facility] PAGE 1 RUN TIME: 0740 [address] [address], [place] [address] Department of Laboratories CLIA # [id number] Material Preparation Worker: Kalpana Patrick DO Specimen Report SPEC: [id number] PATIENT: INGRID CONTRERAS [id number] (Continued) ------ ------ CONTINUED ON NEXT PAGE Item Value Date Time White Blood Count 8.1 K/uL 11/29/24 0851 Red Blood Count 3.97 MIL/uL L 11/29/24 0851 Hemoglobin 11.4 g/dL L 11/29/24 0851 Hematocrit 35.4 % L 11/29/24 0851 Mean Corpuscular Volume 89.2 fL 11/29/24 0851 Mean Corpuscular Hemoglobin 28.7 pg 11/29/24 0851 Mean Corpuscular Hemoglobin Concent 32.2 g/dL 11/29/24 0851 Red Cell Distribution Width 12.3 % 11/29/24 0851 Platelet Count 159 K/uL 11/29/24 0851 Mean Platelet Volume 9.3 fL 11/29/24 0851 Immature Granulocyte % (Auto) 0.7 % 11/29/24850 Neutrophils (%) (Auto) 66.2 % 11/29/24850 Lymphocytes (%) (Auto) 22.0 % 11/29/24850 Monocytes (%) (Auto) 7.9 % 11/29/24850 Eosinophils (%) (Auto) 2.7 % 11/29/24850 Basophils (%) (Auto) 0.5 % 11/29/24850 Neutrophils # (Auto) 5.3 K/uL 11/29/24850 Lymphocytes # (Auto) 1.8 K/uL 11/29/24850 Monocytes # (Auto) 0.6 K/uL 11/29/24850 Eosinophils # (Auto) 0.22 K/uL 11/29/24850 Basophils # (Auto) 0.04 K/uL 11/29/24850 Absolute Immature Granulocyte (auto 0.06 K/uL 11/29/24850 Nucleated Red Blood Cells 0.0 % 11/29/24850 Potassium Level 3.7 mmol/L 11/29/2451 Chloride Level 103 mmol/L 11/29/2451 Carbon Dioxide Level 33 mmol/L H 11/29/2451 Blood Urea Nitrogen 12 mg/dL 11/29/2451 Creatinine 0.8 mg/dL 11/29/24 0851 Glomerular Filtration Rate Calc 124 mL/min 11/29/2451 Random Glucose 125 mg/dL H 11/29/2451 Total Calcium 8.6 mg/dL 11/29/2451 Magnesium Level 1.70 mg/dL L 11/29/2451 Total Bilirubin 0.2 mg/dL 11/29/2451 Albumin 2.7 g/dL L 11/29/2451 Total Protein 6.0 g/dL 11/29/2451 Alkaline Phosphatase 83 U/L 11/29/2451 Alanine Aminotransferase (ALT/SGPT) 29 U/L 11/29/24 08 Aspartate Amino Transf (AST/SGOT) 14 U/L 11/29/24850 HIV (1&2) Antibody Non-Reactive 11/24/24642 HIV P24 Antigen, Qualitative Non-Reactive 11/24/24642 Influenza Type A Antigen Negative For Type A 11/24/241835 Influenza Type B Antigen Negative For Type B 11/24/241835 SARS-CoV-2, RNA, NAAT NEGATIVE SARS CoV-2 11/24/241835 Assessment/Plan: discharged dx's; Acute respiratory failure with hypoxia. Requiring oxygen supplemental POA will follow up pulmologist: outpatient sleep study sepsis secondary to perirectal abscess POA status post I&D POA gram negative wound cultures: enterococcus faecalis and E coli will need fpc IV zosyn as directed by ID Anorectal mass, POA pathology reports: will follow up with Dr Cisneros Rectal tenesmus, POA Leukocytosis, POA resolved Morbid obesity, POA electrolytes derangement: hypomagnesemia Hepatic steatosis, POA Untreated obstructive sleep apnea, POA History of gastritis, POA History of seasonal allergies, POA PLAN: ADMISSION DATE: 11/24/24 DISCHARGE DATE: 11/29/24 DISPOSITION: Home with [facility]: IV abt infusion Zosyn CONDITION: stable WOOD REPATCHER(S): surgeon: Dr Robb, oncologist: DR Cisneros, crisis specialist: DR Kirby Turner Pulmologist: Dr Cross FOLLOW UP APPOINTMENT(S): DR Dumont PCP: 2-[address] Cisneros 3 wks, Dr Cross: 1-2 wks. Wound care clinic 3 days. PROCEDURES: open surgical wound on the perineal area status post surgical I and D due to an abscess. unable to sent copy given to no report in system. dressing changes: iodoform packing as directed by dr Kirby Turner IMAGING (S) report attached to summary : CT abd /pelvis MICROBIOLOGY: report attached to summary;wound cultures ACTIVITY: ab maryanne HOME MEDICATIONS remain the same CHANGES ON HOME MEDICATIONS: None NEW MEDICATIONS Tylenol 3 prescription and bowel regiment. written per surgeon. TEACHING: wound care dressing packing daily will follow up wound care clinic on Friday [facility] care. Emergency instructions: The patient was instructed to present to the nearest Emergency Department or call 911 should their symptoms return or worsen. Home Medications: Active Scripts Ibuprofen (Ibuprofen) 600 Mg Tablet, 600 MG PO Q6H PRN for PAIN, #10 TAB Prov:LAWRENCE RICK BOOK SALESMAN 11/23/24 Lactulose (Lactulose) 10 Gram/15 Ml Solution, 30 ML PO DAILY for constipation, #900 ML 0 Refills Prov:LAWRENCE RICK BOOK SALESMAN 11/23/24 Reported Medications Cetirizine HCl (Cetirizine HCl) 10 Mg Tab.chew, 10 MG PO DAILY, TAB.CHEW 01/08/17 Fluticasone Propionate (Fluticasone Propionate) 15.8 Ml [place].susp, 50 MCG NASAL DAILY 01/08/17 Continued Medications: Cetirizine HCl (Cetirizine HCl) 10 Mg Tab.chew 10 MG PO DAILY, TAB.CHEW Fluticasone Propionate (Fluticasone Propionate) 15.8 Ml [place].susp 50 MCG NASAL DAILY Ibuprofen (Ibuprofen) 600 Mg Tablet 600 MG PO Q6H PRN for PAIN, #10 TAB Lactulose (Lactulose) 10 Gram/15 Ml Solution 30 ML PO DAILY for constipation, #900 ML 0 Refills Time spent arranging discharge: 31-60 minutes ATTESTATION BY PHYSICIAN I have seen and examined the patient. I reviewed the documentation, medical decision making, and treatment plan as noted by the mid-level provider above. I agree with the findings and plan of care. JASON YAP MD, ELIZABETH NP Nov 29, 2024 17:20
--- NOTE | 2024-11-29 22:33 | PN ---
INFECTIOUS DISEASE PROGRESS NOTE Date of Service: Nov 29, 2024 SUBJECTIVE: This is a 29-year-old male patient who was seen and examined at bedside in room 301. Patient with a Rectal abscess and s/p incision and drainage on 11/25/2024. The final wound cultures came back positive with Enterococcus faecalis, E coli and Peptostreptococcus prevotii. Patient is afebrile, temperature is 98.1 and the WBC is 8.1. Patient continues on Zosyn IV. Patient has been referred to [facility] for outpatient [facility] antibiotics and has been approved. PHYSICAL EXAM EYES: Anicteric. Pupils equal and reactive. HENT: No oral thrush seen, moist Oral mucosa NECK: Supple, no JVD or thyromegaly. LUNGS: Good air entry. No rales, no rhonchi. CARDIOVASCULAR: S1, S2 regular. No murmur heard. ABDOMEN: Soft, non tender, bowel sounds present, no organomegaly CENTRAL NERVOUS SYSTEM: Awake, alert, oriented x 3. SKIN: No rashes, no swelling. LYMPHATICS: No peripheral lymphadenopathy MUSCULOSKELETAL: No joint swelling, erythema or tenderness. EXTREMITIES: No cyanosis or clubbing BACK: No deformity, no pressure ulcer. GENITOURINARY: No dysuria or hematuria. RECTUM: Rectal Abscess, s/p I/D. Vital Sign (Last 12 Hours) 11/29/24 11/29/24 11/29/24 11/29/24 12:00 16:00 17:59 19:00 Temp 98.1 98.1 Pulse 60 70 100 96 105 Resp 20 20 20 22 20 B/P (MAP) 132/81 117/47 Pulse Ox 97 96 O2 Delivery Room Air Room Air FiO2 21 21 11/29/24 20:00 Temp 98.1 Pulse 91 Resp 20 B/P (MAP) 125/61 Pulse Ox 96 O2 Delivery Room Air Intake & Output (last 24hrs) 11/28/24 11/28/24 11/29/24 15:00 23:00 07:00 Intake Total 220 ml 240 ml 50.0 ml Balance 220 ml 240 ml 50.0 ml LABS: Laboratory: Test 11/29/24 08:51 11/28/24 20:05 11/28/24 09:32 Range/Units White Blood Count 8.1 4.8-10.8 K/uL Red Blood Count 3.97 L 4.50-6.20 MIL/uL Hemoglobin 11.4 L 14.0-18.0 g/dL Hematocrit 35.4 L 42-54 % Mean Corpuscular Volume 89.2 79-99 fL Mean Corpuscular Hemoglobin 28.7 27.0-33.0 pg Mean Corpuscular Hemoglobin Concent 32.2 32.0-36.0 g/dL Red Cell Distribution Width 12.3 11.0-15.5 % Platelet Count 159 130-400 K/uL Mean Platelet Volume 9.3 7.5-10.5 fL Immature Granulocyte % (Auto) 0.7 0-1 % Neutrophils (%) (Auto) 66.2 40.0-77.0 % Lymphocytes (%) (Auto) 22.0 21.0-51.0 % Monocytes (%) (Auto) 7.9 3.0-13.0 % Eosinophils (%) (Auto) 2.7 0.0-8.0 % Basophils (%) (Auto) 0.5 0.0-5.0 % Neutrophils # (Auto) 5.3 1.8-7.7 K/uL Lymphocytes # (Auto) 1.8 1.0-4.8 K/uL Monocytes # (Auto) 0.6 0.1-1.0 K/uL Eosinophils # (Auto) 0.22 0.00-0.70 K/uL Basophils # (Auto) 0.04 0.00-0.20 K/uL Absolute Immature Granulocyte (auto 0.06 0-1 K/uL Nucleated Red Blood Cells 0.0 0.0-0.19 % Sodium Level 137 136-145 mmol/L Potassium Level 3.7 3.5-5.1 mmol/L Chloride Level 103 101-111 mmol/L Carbon Dioxide Level 33 H 21-32 mmol/L Blood Urea Nitrogen 12 7-18 mg/dL Creatinine 0.8 0.5-1.3 mg/dL Glomerular Filtration Rate Calc 124 >90 mL/min Random Glucose 125 H 70-105 mg/dL Total Calcium 8.6 8.5-10.1 mg/dL Magnesium Level 1.70 L 1.80-2.40 mg/dL Total Bilirubin 0.2 0.2-1.0 mg/dL Aspartate Amino Transf (AST/SGOT) 14 10-37 U/L Alanine Aminotransferase (ALT/SGPT) 29 12-78 U/L Alkaline Phosphatase 83 50-136 U/L Total Protein 6.0 6.0-8.3 g/dL Albumin 2.7 L 3.5-5.0 g/dL Vancomycin Level Trough 3.2 #L 10.0-20.0 UG/ML Prothrombin Time 11.1 9.6-11.6 SEC Prothromb Time International Ratio 1.05 0.85-1.15 Activated Partial Thromboplast Time 29.2 26.3-35.5 SEC DIAGNOSTICS / RADIOLOGY: PATIENT: INGRID CONTRERAS ACCT: [id number] LOC: [facility] U: [id number] AGE/SX: 29/M ROOM: [facility] RE11/24/[address]: MESFIN LOYD MD : 1995 BED: 1 DIS: STATUS: ADM IN TLOC: ------- ----- SPEC: [id number] FELISHA: 11/25/24-1405 STATUS: COMP REQ: [id number] RECD: 11/25/24-[address]: ANNE MAHAJAN MD SOURCE: PERIRECTAL ENTR: 11/25/24-[address]: BELLA ELLIOTT MD SPDESC: ABSCESS TADEO FLYNN,MESFIN HERR MD, MD, NABEEL MD [facility] ORDERED: AEROBIC CULTURE Procedure Result Tavares Date-Time AEROBIC CULTURE Final 11/28/24-0739 MRL COLONY DESCRIPTION: REPORT 1: 1+ GRAM NEGATIVE RODS IDENTIFICATION AND SENSITIVITY TO FOLLOW REPORT 2: 1+ GRAM POSITIVE COCCI IN CHAINS POSSIBLE ENTEROCOCCUS SPECIES . IDENTIFICATION AND SENSITIVITY TO FOLLOW NO FURTHER WORK-UP DONE ENTEROCOCCUS FAECALIS ESCHERICHIA COLI E FAECALIS E COLI M.I.C. RX M.I.C. RX --------- ---- --------- ---- AMPICILLIN <=2 S >16 R AZTREONAM <=4 S CEFAZOLIN <=2 S CEFTAZIDIME/AVIBACTAM <=8 S GENTAMICIN <=2 S LEVOFLOXACIN <=0.5 S VANCOMYCIN 1 S AMPICILLIN/SULBACTAM 16/8 I GENTAMICIN Synergy Screen >500 R MEROPENEM <=1 S PENICILLIN 2 S PIPERACILLIN/TAZOBACTAM <=8 S STREPTOMYCIN Synergy Screen <=1000 S TRIMETHOPRIM/SUFLAMETHOXAZOLE <=2/38 S ENTEROCOCCUS FAECALIS: POSITIVE COMBO 34 Streptomycin Synergy Screen S Gentamicin Synergy Screen R ASSESSMENT: Rectal abscess, s/p I/D on 11/25/2024. Polymicrobial infection with Enterococcus faecalis, E coli and Peptostreptococcus prevotii. Sepsis. Morbid obesity. PLAN: Continue cefepime.. Patient has been approved to [facility] and will be discharged today. This case was reviewed and discussed with my supervising physician and the above assessment and plan was formulated and agreed upon. ATTESTATION BY PHYSICIAN I have seen and examined the patient. I reviewed the documentation, medical decision making, and treatment plan as noted by the mid-level provider above. I agree with the findings and plan of care. RUSH ROQUE MD, MIRTA L [facility] Nov 29, 2024 22:33
--- NOTE | 2024-12-02 20:18 | OP ---
DATE OF PROCEDURE: 11/25/2024 PREOPERATIVE DIAGNOSES: Perianal pain. POSTOPERATIVE DIAGNOSES: Perianal cellulitis PROCEDURE PERFORMED: * Examination under anesthesia. * Incision and drainage fluid from panniculitis./cellulitis SURGEON: Clarisse Ochoa MD ANESTHESIA: General. ESTIMATED BLOOD LOSS: Minimal. FINDINGS: * Normal anal canal. * Hard indurated fat in the left buttock from 1 to 3 o'clock. SPECIMEN REMOVED: Fluid, some sent for Gram stain, culture and sensitivity. COMPLICATIONS: None. DESCRIPTION OF PROCEDURE: The patient was brought into the operating room. After proper identification, the patient was placed on the operating table in the supine position. General anesthesia was then administered and the patient was endotracheally intubated. The patient was then placed in the lithotomy position. Attention was then focused in the area of the perineum. The same was prepped and draped in the usual sterile fashion. An appropriate time-out was then carried out at this point. Inspection of the perianal region showed evidence of some erythematous indurated area in the 1-3 o'clock position. I proceeded to carry out a digital examination and the speculum examination and there was no pathology identified. I then proceeded to make a cruciate incision in the hard indurated area. The incision was carried through skin and subcutaneous tissue. Clamps of fat tissue was identified. There was no abscess. Fluid from this area was then carefully sent for Gram stain, culture and sensitivity. I then copiously irrigated the wound with antibiotic irrigation. Hemostasis was noted to be adequate. I then packed the wound with 1-inch iodoform gauze. Sterile dressings were then applied. Instrument and sponges count was found correct x 2. The patient was then woken up, extubated and taken to recovery room in stable condition. The patient tolerated the procedure well. TID: [id number] RECEIPT: [id number] [facility]
== END 2024-11-29 20:30 | disposition home health service (06) | DRG 871 ==
LOC: EDH 06:14 → EDHIP 16:55 → 3AH 11-25 00:46
PROVIDERS: ADMIT Internal Medicine; ATTEND Internal Medicine
PROC: 05HB33Z Insertion of Infusion Device into Right Basilic Vein, Percutaneous Approach (ICD-10-PCS; 2024-11-24)
PROC: 5A09357 Assistance with Respiratory Ventilation, Less than 24 Consecutive Hours, Continuous Positive Airway Pressure (ICD-10-PCS; 2024-11-25)
PROC: 0J9B0ZX Drainage of Perineum Subcutaneous Tissue and Fascia, Open Approach, Diagnostic (ICD-10-PCS; principal; 2024-11-25 16:54)
PROC: 5A09357 Assistance with Respiratory Ventilation, Less than 24 Consecutive Hours, Continuous Positive Airway Pressure (ICD-10-PCS; 2024-11-26)
PROC: 5A09357 Assistance with Respiratory Ventilation, Less than 24 Consecutive Hours, Continuous Positive Airway Pressure (ICD-10-PCS; 2024-11-27)
PROC: 5A09357 Assistance with Respiratory Ventilation, Less than 24 Consecutive Hours, Continuous Positive Airway Pressure (ICD-10-PCS; 2024-11-28)
PROC: 5A09357 Assistance with Respiratory Ventilation, Less than 24 Consecutive Hours, Continuous Positive Airway Pressure (ICD-10-PCS; 2024-11-29)
DX: A41.9 Sepsis, unspecified organism (principal); J96.01 Acute respiratory failure with hypoxia; E66.2 Morbid (severe) obesity with alveolar hypoventilation; Z68.43 Body mass index [BMI] 50.0-59.9, adult; K61.2 Anorectal abscess; Z20.822 Contact with and (suspected) exposure to COVID-19; K62.89 Other specified diseases of anus and rectum; K76.0 Fatty (change of) liver, not elsewhere classified; M79.3 Panniculitis, unspecified; K74.60 Unspecified cirrhosis of liver; Z80.42 Family history of malignant neoplasm of prostate; K59.00 Constipation, unspecified; E83.42 Hypomagnesemia; B19.20 Unspecified viral hepatitis C without hepatic coma; J44.89 Other specified chronic obstructive pulmonary disease; Z83.3 Family history of diabetes mellitus; Z82.49 Family history of ischemic heart disease and other diseases of the circulatory system; Z79.899 Other long term (current) drug therapy
CPT/HCPCS: 36415; 36600; 71045; 74177; 80048; 80053; 80076; 80202; 82378; 82803; 83735; 84145; 84443; 85025; 85027; 85610; 85651; 85730; 86140; 86701; 87070; 87076; 87086; 87186; 87390; 87635; 87804; 94640; 94660; 94664; 94760; 99285; A6266; G0378; J0330; J0690; J1100; J1171; J1650; J1885; J2003; J2250; J2270; J2405; J2470; J2543; J2704; J2710; J3010; J3475; J3490; J7120; Q9967; A4649; A4930; J0665; J3370

== ENCOUNTER → 2024-12-06 | Outpatient (CLI) | payer BC | END | disposition home or self-care (01) | LOC: WHH 08:26 | PROVIDERS: ATTEND Family Medicine | DX: T81.31XA Disruption of external operation (surgical) wound, not elsewhere classified, initial encounter (principal); S31.809A Unspecified open wound of unspecified buttock, initial encounter; J45.909 Unspecified asthma, uncomplicated; E66.01 Morbid (severe) obesity due to excess calories; Z68.43 Body mass index [BMI] 50.0-59.9, adult; X58.XXXA Exposure to other specified factors, initial encounter; Y83.8 Other surgical procedures as the cause of abnormal reaction of the patient, or of later complication, without mention of misadventure at the time of the procedure; Y92.238 Other place in hospital as the place of occurrence of the external cause; Y93.89 Activity, other specified; Y92.89 Other specified places as the place of occurrence of the external cause; Y99.8 Other external cause status | CPT/HCPCS: 99215; A6010; A4450 ==

== ENCOUNTER → 2024-12-20 | Outpatient (CLI) | payer BC | END | disposition home or self-care (01) | LOC: WHH 08:57 | PROVIDERS: ATTEND Family Medicine | DX: T81.31XD Disruption of external operation (surgical) wound, not elsewhere classified, subsequent encounter (principal); S31.809D Unspecified open wound of unspecified buttock, subsequent encounter; J45.909 Unspecified asthma, uncomplicated; E66.01 Morbid (severe) obesity due to excess calories; Z68.43 Body mass index [BMI] 50.0-59.9, adult; X58.XXXD Exposure to other specified factors, subsequent encounter; Y83.8 Other surgical procedures as the cause of abnormal reaction of the patient, or of later complication, without mention of misadventure at the time of the procedure | CPT/HCPCS: 99214 ==

== ENCOUNTER → 2024-12-27 | Outpatient (CLI) | payer BC ==
[~2024-12-27] MED LIST changes: +SILVER NITRATE APPLICATOR 1 SWAB TP ONE
== END | disposition home or self-care (01) ==
LOC: WHH 08:17
PROVIDERS: ATTEND Family Medicine
DX: T81.31XD Disruption of external operation (surgical) wound, not elsewhere classified, subsequent encounter (principal); S31.809D Unspecified open wound of unspecified buttock, subsequent encounter; J45.909 Unspecified asthma, uncomplicated; E66.01 Morbid (severe) obesity due to excess calories; Z68.43 Body mass index [BMI] 50.0-59.9, adult; X58.XXXD Exposure to other specified factors, subsequent encounter; Y83.8 Other surgical procedures as the cause of abnormal reaction of the patient, or of later complication, without mention of misadventure at the time of the procedure
CPT/HCPCS: 17250; A6212; A6010

== ENCOUNTER → 2025-01-03 | Outpatient (CLI) | payer BC ==
[~2025-01-03] MED LIST changes: -SILVER NITRATE APPLICATOR 1 SWAB TP ONE
== END | disposition home or self-care (01) ==
LOC: WHH 08:10
PROVIDERS: ATTEND Family Medicine
DX: T81.31XD Disruption of external operation (surgical) wound, not elsewhere classified, subsequent encounter (principal); S31.809D Unspecified open wound of unspecified buttock, subsequent encounter; J45.909 Unspecified asthma, uncomplicated; E66.01 Morbid (severe) obesity due to excess calories; Z68.43 Body mass index [BMI] 50.0-59.9, adult; X58.XXXD Exposure to other specified factors, subsequent encounter; Y83.8 Other surgical procedures as the cause of abnormal reaction of the patient, or of later complication, without mention of misadventure at the time of the procedure
CPT/HCPCS: 99214

== ENCOUNTER → 2025-01-13 | Outpatient (CLI) | payer BC ==
[~2025-01-13] MED LIST changes: +GADOTERATE MEGLUMINE 10 MMOL/20 ML VIAL IV ONE
--- NOTE | 2025-01-13 10:35 | HMCIMG ---
MR PELVIS W/WO CON HISTORY: Follow-up rectal abscess COMPARISON: None TECHNIQUE: MRI of the pelvis was performed utilizing multiple pulse sequences in axial, coronal and sagittal planes. Patient was given 20 cc of Clariscan through intravenous route. FINDINGS: The study is limited due to patient's large body habitus. Pelvic bladder is poorly distended. Mild nonspecific rectal wall thickening is seen and clinical correlation is recommended. Rectal wall measures 11.3 mm in thickness. Sidewalls are symmetric bilaterally. There is no evidence of pelvic adenopathy or ascites. IMPRESSION: 1. There is pelvic adenopathy or ascites. Mild rectal wall thickening is seen and clinical correlation is recommended.
== END | disposition home or self-care (01) ==
LOC: RAH 07:54
PROVIDERS: ATTEND Nurse Practitioner Family
DX: N32.89 Other specified disorders of bladder (principal); K61.1 Rectal abscess
CPT/HCPCS: 72197; A9575